=== PATIENT | male | born 1975 | race Caucasian/White ===

== ENCOUNTER 2016-06-30 13:16 | Emergency (ER) | payer OTHER ==
[2016-06-30 16:32] LABS: Basophils # (A) 0.1 k/uL (0-0.2); Basophils % (A) 1 %; CH 28.4; CHCM 33.9; Eosinophils # (A) 0.2 k/uL (0-0.7); Eosinophils % (A) 3 %; HCT 40.1 % (39.0-53.0); HDW 3.44; HGB 13.4 gm/dL (13.0-17.5); Luc # (Auto) 0.25; Luc % (Auto) 4; Lymphocytes # (A) 2.3 k/uL (1.0-4.8); Lymphocytes % (A) 32 %; MCH 28.1 pg (25.0-35.0); MCHC 33.4 g/dL (31.0-37.0); MCV 84.2 fL (80.0-100.0); Mean Platelet Volume 7.5; Monocytes # (A) 0.3 k/uL (0-1.0); Monocytes % (A) 4 %; Neutrophils % (A) 56 %; Poikilocytosis Slight; RBC 4.76 m/uL (4.30-5.90); RDW 13.5 % (11.5-15.5); WBC (Perox) 6.85
[2016-06-30 16:43] LABS: Anion Gap 11 mmol/L; Blood Urea Nitrogen 16 mg/dL (9-20); Carbon Dioxide 30 mmol/L (22-30); Chloride 99 mmol/L (98-107); Glucose 166 mg/dL (74-99); Non-African American GFR(MDRD) >60 (>60 ml/min/1.73 sqM); Potassium 4.4 mmol/L (3.5-5.1); Sodium 140 mmol/L (137-145)
--- NOTE | 2016-06-30 17:10 | XR ---
EXAMINATION TYPE: XR foot complete LT DATE OF EXAM: 06/30/2016 5:05 PM COMPARISON: NONE HISTORY: Swollen foot TECHNIQUE: 3 views FINDINGS: There is soft tissue swelling of the forefoot. There are plantar and Achilles calcaneal spu rs. Metatarsals are intact. IMPRESSION: Soft tissue swelling. No fracture. No evidence of a definite foreign body.
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
[2016-06-30 17:42] VITALS: BP 152/83; PULSE 96; RESP 16; TEMP 98.7
== END 2016-06-30 17:39 | disposition home or self-care (01) ==
LOC: EC 13:16
DX: E11.621 Type 2 diabetes mellitus with foot ulcer (principal); L97.529 Non-pressure chronic ulcer of other part of left foot with unspecified severity; Z86.14 Personal history of Methicillin resistant Staphylococcus aureus infection; Z88.0 Allergy status to penicillin; Z79.4 Long term (current) use of insulin; Z98.890 Other specified postprocedural states; Z79.84 Long term (current) use of oral hypoglycemic drugs
CPT/HCPCS: 36415; 80048; 85025; 87040; 99283

== ENCOUNTER → 2016-07-05 | Outpatient (CLI) | payer OTHER | END | disposition home or self-care (01) | LOC: LABWHC1 10:14 | PROVIDERS: ATTEND Surgery | DX: Z53.9 Procedure and treatment not carried out, unspecified reason (principal) ==

== ENCOUNTER 2016-10-16 22:15 | Inpatient (IN) | payer OTHER ==
[2016-10-16] MEDS ORDERED: SODIUM CHLORIDE 0.9% 1,000 ML IV STA (22:57)
[2016-10-16] MEDS ORDERED: LEVOFLOXACIN 750MG-D5W PMX 750 MG in DEXTROSE/WATER 1 150ML.BAG IVPB STA (22:59)
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
[2016-10-16 23:14] LABS: Basophils % (A) 0 %; CH 26.6; CHCM 32.8; Eosinophils # (A) 0.1 k/uL (0-0.7); Eosinophils % (A) 1 %; HCT 31.4 % (39.0-53.0); HDW 3.32; HGB 10.9 gm/dL (13.0-17.5); Hypochromasia Slight; Luc # (Auto) 0.24; Luc % (Auto) 2; Lymphocytes # (A) 1.1 k/uL (1.0-4.8); Lymphocytes % (A) 7 %; MCH 28.2 pg (25.0-35.0); MCHC 34.6 g/dL (31.0-37.0); MCV 81.3 fL (80.0-100.0); Mean Platelet Volume 7.3; Monocytes # (A) 0.7 k/uL (0-1.0); Monocytes % (A) 4 %; Neutrophils # (A) 13.7 k/uL (1.3-7.7); Neutrophils % (A) 87 %; RBC 3.86 m/uL (4.30-5.90); RDW 12.9 % (11.5-15.5); WBC 15.8 k/uL (3.8-10.6); WBC (Perox) 15.94
[2016-10-16 23:25] LABS: ALT 59 U/L (21-72); AST 36 U/L (17-59); Alkaline Phosphatase 64 U/L (38-126); Anion Gap 13 mmol/L; Blood Urea Nitrogen 15 mg/dL (9-20); Calcium 8.6 mg/dL (8.4-10.2); Carbon Dioxide 23 mmol/L (22-30); Chloride 99 mmol/L (98-107); Glucose 240 mg/dL (74-99); Non-African American GFR(MDRD) >60 (>60 ml/min/1.73 sqM); Potassium 4.4 mmol/L (3.5-5.1); Sodium 135 mmol/L (137-145); Total Bilirubin 0.7 mg/dL (0.2-1.3); Total Protein 6.6 g/dL (6.3-8.2)
[2016-10-16] MEDS ORDERED: SODIUM CHLORIDE 0.9% 1,000 ML IV ONE (23:31)
[2016-10-16] MEDS ORDERED: INSULIN REGULAR 100 UNIT/ML VIAL SQ STA (23:33)
[2016-10-16] MEDS ORDERED: ACETAMINOPHEN TAB 325 MG TAB PO STA (23:42)
--- NOTE | 2016-10-16 23:51 | XR ---
EXAM: XR Left Foot Complete, 3 or More Views CLINICAL HISTORY: Reason: Pain TECHNIQUE: Frontal, lateral and oblique views of the left foot. COMPARISON: 06/30/16. FINDINGS: Bones/joints: No definite acute fracture or dislocation. Soft tissues: Soft tissue swelling with lucencies suggestive of soft tissue gas in the region of the first and second MTP joints may be related to history of ulcer. Necrotizing infection is a differential consideration. No radiopaque foreign body. IMPRESSION: 1. Lucencies suggestive of soft tissue gas in the region of the first and second MTP joints may be related to history of ulcer. Necrotizing infection is a differential consideration. 2. No evidence of acute fracture.
[2016-10-17] MEDS ORDERED: IV VANCOMYCIN PER PHARMACY 1 EACH MISC MISCELLANE PRN (00:39)
[2016-10-17] MEDS ORDERED: MORPHINE SULFATE 4 MG/ML SYRINGE IV PRN (00:49)
[2016-10-17] MEDS ORDERED: NALOXONE 0.4 MG/ML 1 ML VIAL IV PRN (00:49)
[2016-10-17] MEDS ORDERED: ACETAMINOPHEN TAB 325 MG TAB PO PRN (00:49)
[2016-10-17] MEDS ORDERED: IBUPROFEN 400 MG TAB PO PRN ×2 (00:49→22:29)
[2016-10-17 00:53] LABS: Glucose,Whole Blood 242 mg/dL (75-99)
[2016-10-17] MEDS ORDERED: VANCOMYCIN 2,000 MG in SODIUM CHLORIDE 0.9% 500 ML IVPB STA (00:53)
[2016-10-17] MEDS ORDERED: INSULIN REGULAR 100 UNIT/ML VIAL SQ STA (00:54)
[2016-10-17] MEDS ORDERED: AZTREONAM 2 GM in SODIUM CHLORIDE 0.9% 50 ML IVPB SCH (01:00)
[2016-10-17] MEDS: AZTREONAM 2 GM in SODIUM CHLORIDE 0.9% 100 ML IVPB SCH ×3 (01:13→17:38)
[2016-10-17 01:58] VITALS: BMI 43.3
[2016-10-17] MEDS: HYDROcodone/APAP 5-325MG 1 EACH TAB PO PRN (02:01)
[2016-10-17] MEDS: SODIUM CHLORIDE 0.9% 1,000 ML IV SCH ×3 (06:46→14:35)
[2016-10-17 06:56] LABS: Glucose,Whole Blood 152 mg/dL (75-99)
[2016-10-17] MEDS: INSULIN LISPRO (humaLOG) 300 UNIT/3 ML VIAL SQ SCH ×6 (08:02→20:30)
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
[2016-10-17] MEDS: VANCOMYCIN 2,000 MG in SODIUM CHLORIDE 0.9% 500 ML IVPB SCH ×2 (10:22→18:35)
[2016-10-17] MEDS: metFORMIN 500 MG TAB PO SCH ×2 (10:25→20:30)
[2016-10-17 11:25] LABS: Glucose,Whole Blood 207 mg/dL (75-99)
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
[2016-10-17 17:11] LABS: Glucose,Whole Blood 231 mg/dL (75-99)
[2016-10-17 20:23] LABS: Glucose,Whole Blood 214 mg/dL (75-99)
[2016-10-17] MEDS: INSULIN GLARGINE 100 UNIT/ML 10 ML VIAL SQ SCH (20:30)
[2016-10-18] MEDS ORDERED: ACETAMINOPHEN IV (For NPO) 1,000 MG in EMPTY BAG 1 BAG IVPB PRN (00:21)
[2016-10-18] MEDS: AZTREONAM 2 GM in SODIUM CHLORIDE 0.9% 100 ML IVPB SCH ×3 (00:29→17:19)
[2016-10-18] MEDS ORDERED: ACETAMINOPHEN IV (For NPO) 1,000 MG in EMPTY BAG 1 BAG IVPB ONE (00:30)
[2016-10-18] MEDS: VANCOMYCIN 2,000 MG in SODIUM CHLORIDE 0.9% 500 ML IVPB SCH ×4 (01:36→19:32)
[2016-10-18] MEDS: SODIUM CHLORIDE 0.9% 1,000 ML IV SCH ×5 (03:42→19:33)
[2016-10-18] MEDS: ACETAMINOPHEN TAB 325 MG TAB PO PRN ×2 (05:57→13:52)
[2016-10-18 06:38] LABS: Basophils % (A) 0 %; CH 26.9; CHCM 33.4; Eosinophils # (A) 0.4 k/uL (0-0.7); Eosinophils % (A) 3 %; HCT 28.8 % (39.0-53.0); HDW 3.39; HGB 10.2 gm/dL (13.0-17.5); Luc # (Auto) 0.15; Luc % (Auto) 1; Lymphocytes # (A) 1.6 k/uL (1.0-4.8); Lymphocytes % (A) 10 %; MCH 28.6 pg (25.0-35.0); MCHC 35.3 g/dL (31.0-37.0); MCV 80.9 fL (80.0-100.0); Mean Platelet Volume 7.7; Monocytes # (A) 0.7 k/uL (0-1.0); Monocytes % (A) 4 %; Neutrophils # (A) 13.8 k/uL (1.3-7.7); Neutrophils % (A) 83 %; RBC 3.56 m/uL (4.30-5.90); RDW 13.3 % (11.5-15.5); WBC 16.7 k/uL (3.8-10.6); WBC (Perox) 16.34
[2016-10-18 07:14] LABS: Glucose,Whole Blood 177 mg/dL (75-99)
[2016-10-18 07:18] LABS: Anion Gap 10 mmol/L; Blood Urea Nitrogen 14 mg/dL (9-20); Calcium 7.6 mg/dL (8.4-10.2); Carbon Dioxide 21 mmol/L (22-30); Chloride 104 mmol/L (98-107); Glucose 177 mg/dL (74-99); Non-African American GFR(MDRD) >60 (>60 ml/min/1.73 sqM); Potassium 4.1 mmol/L (3.5-5.1); Sodium 135 mmol/L (137-145)
[2016-10-18] MEDS: INSULIN LISPRO (humaLOG) 300 UNIT/3 ML VIAL SQ SCH ×6 (08:59→20:30)
[2016-10-18] MEDS ORDERED: VANCOMYCIN TROUGH DUE 1 EACH MISC MISCELLANE ONE (09:00)
[2016-10-18] MEDS: metFORMIN 500 MG TAB PO SCH ×2 (09:00→20:29)
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
--- NOTE | 2016-10-18 11:21 | P.PN ---
Subjective 41-year-old male presented on the day of admission to be evaluated for increased pain in the left foot stated been ongoing for the last month. Patient has a history of multiple diabetic wounds and debridements. Patient stated several months he had been followed in the [facility] with Dr. Morales for diabetic ulcer on the plantar side of the left foot. Dr. Morales performed debridements necessary in the past. Patient had been in a cast keep the pressure off the wound. In in September 2016 Dr. Morales felt that the wound had significantly healed and he removed the total contact cast. Patient states that the cast have been removed he noted increase in swelling to the left foot was increased redness. Patient states he does not normally have pain due to his diabetes. Patient was seen in the emergency room was noted to be febrile temp was 102.5 patient was tachycardic with leukocytosis meeting sirs criteria for sepsis suspect due to diabetic ulcer on the plantar side of the left foot patient has been admitted with infectious disease consultation requested patient on IV antibiotics per infectious disease Dr. varner . Patient stated he did note over the last several days to have discoloration purple in color to the left second toe Objective - Vital Signs Vital signs: Vital Signs Temp 98.4 F 10/18/16 07:00 Pulse 99 10/18/16 07:00 Resp 18 10/18/16 07:00 BP 136/69 10/18/16 07:00 Pulse Ox 90 L 10/18/16 07:00 Intake & Output 10/17/16 10/18/16 10/18/16 18:59 06:59 18:59 Intake Total 2280 2200 Output Total 400 Balance 2280 1800 Weight 141 kg 141 kg Intake: Intake, IV Titration 1600 1800 Amount Aztreonam 2 gm In Sodium 100 100 Chloride 0.9% 100 ml @ 100 mls/hr IVPB Q8H [facility]OS[facility] Rx#:[id number] Sodium Chloride 0.9% 1, 1000 1200 000 ml @ 150 mls/hr IV . Q6H40M [facility]OS[facility] Rx#:[id number] Vancomycin 2,000 mg In 500 500 Sodium Chloride 0.9% 500 ml @ 167 mls/hr IVPB Q8H [facility]OS[facility] Rx#:[id number] Oral 680 400 Output: Urine 400 Other: Voiding Method Toilet Toilet Toilet Urinal Urinal Urinal # Voids 4 1 - Exam Physical exam 41-year-old male sitting up on the edge of the bed talkative requesting a diet stating he's hungry Lungs essentially clear adequate air movement on room air Heart S1-S2 audible and regular Abdomen soft nontender reports of nausea vomiting Extremities upper extremities unremarkable the lower extremity left second toe purple left foot swollen warm to touch right lower extremity chronic venous stasis noted - Labs CBC & Chem 7: 10/18/16 06:03 10/18/16 06:03 Labs: Abnormal Lab Results - Last 24 Hours (Table) 10/16/16 10/17/16 10/17/16 Range/Units 22:30 11:23 17:10 WBC (3.8-10.6) k/uL RBC (4.30-5.90) m/uL Hgb (13.0-17.5) gm/dL Hct (39.0-53.0) % Neutrophils # (1.3-7.7) k/uL Sodium (137-145) mmol/L Carbon Dioxide (22-30) mmol/L Creatinine (0.66-1.25) mg/dL Glucose (74-99) mg/dL POC Glucose (mg/dL) 207 H 231 H (75-99) mg/dL Hemoglobin A1c 8.0 H (4.2-6.1) % Calcium (8.4-10.2) mg/dL 10/17/16 10/18/16 10/18/16 Range/Units 20:18 06:03 06:03 WBC 16.7 H (3.8-10.6) k/uL RBC 3.56 L (4.30-5.90) m/uL Hgb 10.2 L (13.0-17.5) gm/dL Hct 28.8 L (39.0-53.0) % Neutrophils # 13.8 H (1.3-7.7) k/uL Sodium 135 L (137-145) mmol/L Carbon Dioxide 21 L (22-30) mmol/L Creatinine 0.58 L (0.66-1.25) mg/dL Glucose 177 H (74-99) mg/dL POC Glucose (mg/dL) 214 H (75-99) mg/dL Hemoglobin A1c (4.2-6.1) % Calcium 7.6 L (8.4-10.2) mg/dL 10/18/16 Range/Units 07:13 WBC (3.8-10.6) k/uL RBC (4.30-5.90) m/uL Hgb (13.0-17.5) gm/dL Hct (39.0-53.0) % Neutrophils # (1.3-7.7) k/uL Sodium (137-145) mmol/L Carbon Dioxide (22-30) mmol/L Creatinine (0.66-1.25) mg/dL Glucose (74-99) mg/dL POC Glucose (mg/dL) 177 H (75-99) mg/dL Hemoglobin A1c (4.2-6.1) % Calcium (8.4-10.2) mg/dL Microbiology - Last 24 Hours (Table) 10/16/16 22:30 Gram Stain - Preliminary Foot - Left Wound Culture - Preliminary Beta Hemolytic Strep Group C Gram Neg Bacilli 10/16/16 23:00 Blood Culture - Preliminary Blood No Growth after 24 hours 10/16/16 22:30 Blood Culture - Preliminary Blood No Growth after 24 hours 10/17/16 16:00 Gram Stain - Preliminary Foot - Left Wound Culture - Preliminary 10/17/16 16:00 Anaerobic Culture - Preliminary Foot - Left 10/17/16 09:45 Anaerobic Culture - Preliminary Foot - Left Assessment and Plan Plan: Impression Present on admission increased swelling left foot suspect due to diabetic ulcer of the left foot associated with diabetes mellitus due to underlying condition Diabetes insulin requiring uncontrolled hemoglobin A1c 8 Morbid obesity BMI 43 Present on admission febrile tachycardic leukocytosis sepsis suspect due to diabetic ulcer left foot 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 Morales known to service possible debridement Continue medications by infectious disease Possible PICC line placement IV antibiotics per infectious disease on iv azactreonam 2 g every 8 hours with Flagyl 500 mg every 8 hours Monitor blood sugars address as indicated DVT and GI prophylaxis The above impression and plan of care have been discussed and directed by signing physician. Tamica Mckeon nurse practitioner acting as scribe for signing physician.
[2016-10-18 11:36] LABS: Glucose,Whole Blood 215 mg/dL (75-99)
--- NOTE | 2016-10-18 14:04 | P.PN ---
Progress Note - Text Since the patient is known to Dr. Morales from the wound clinic, we will sign off. Notify us if the patient is condition changes or you would like general surgery to reevaluate him.
[2016-10-18] MEDS: HEPARIN SODIUM,PORCINE 5,000 UNIT/ML 1 ML VIAL SQ SCH (15:15)
[2016-10-18 17:11] LABS: Glucose,Whole Blood 208 mg/dL (75-99)
[2016-10-18 20:06] LABS: Glucose,Whole Blood 229 mg/dL (75-99)
[2016-10-18] MEDS: INSULIN GLARGINE 100 UNIT/ML 10 ML VIAL SQ SCH ×2 (20:29→23:27)
[2016-10-18] MEDS: FAMOTIDINE 20 MG TAB PO SCH (20:29)
--- NOTE | 2016-10-18 22:01 | P.PN ---
Subjective Principal diagnosis: Left diabetic foot infection Patient is a 41-year-old male admitted hospital with significant left diabetic foot infection with infected blister on the plantar aspect of his left foot, as of this morning the patient fever pattern has improved with low-grade fever 100.1 this morning the patient denies significant chest pain shortness of breath or cough no abdominal pain and no diarrhea denies any worsening pain in his left foot waiting for the I&D later this morning Objective - Vital Signs Vital signs: Vital Signs Temp 98.4 F 10/18/16 07:00 Pulse 99 10/18/16 07:00 Resp 18 10/18/16 07:00 BP 136/69 10/18/16 07:00 Pulse Ox 90 L 10/18/16 07:00 Intake & Output 10/17/16 10/18/16 10/18/16 18:59 06:59 18:59 Intake Total 2280 2200 Output Total 400 Balance 2280 1800 Weight 141 kg 141 kg Intake: Intake, IV Titration 1600 1800 Amount Aztreonam 2 gm In Sodium 100 100 Chloride 0.9% 100 ml @ 100 mls/hr IVPB Q8H [facility] Rx#:[id number] Sodium Chloride 0.9% 1, 1000 1200 000 ml @ 150 mls/hr IV . Q6H40M [facility] Rx#:[id number] Vancomycin 2,000 mg In 500 500 Sodium Chloride 0.9% 500 ml @ 167 mls/hr IVPB Q8H [facility] Rx#:[id number] Oral 680 400 Output: Urine 400 Other: Voiding Method Toilet Toilet Toilet Urinal Urinal Urinal # Voids 4 1 - Exam Middle-aged male up in the bed in no distress Respiratory system: Unlabored breathing and is clear to auscultation Heart : S1,S2 RRR Abdomen: Soft no tenderness extremities: Left foot is currently dressed up there is no specific and drainage on the dressing - Labs CBC & Chem 7: 10/18/16 06:03 10/18/16 06:03 Labs: Abnormal Lab Results - Last 24 Hours (Table) 10/16/16 10/17/16 10/17/16 Range/Units 22:30 11:23 17:10 WBC (3.8-10.6) k/uL RBC (4.30-5.90) m/uL Hgb (13.0-17.5) gm/dL Hct (39.0-53.0) % Neutrophils # (1.3-7.7) k/uL Sodium (137-145) mmol/L Carbon Dioxide (22-30) mmol/L Creatinine (0.66-1.25) mg/dL Glucose (74-99) mg/dL POC Glucose (mg/dL) 207 H 231 H (75-99) mg/dL Hemoglobin A1c 8.0 H (4.2-6.1) % Calcium (8.4-10.2) mg/dL 10/17/16 10/18/16 10/18/16 Range/Units 20:18 06:03 06:03 WBC 16.7 H (3.8-10.6) k/uL RBC 3.56 L (4.30-5.90) m/uL Hgb 10.2 L (13.0-17.5) gm/dL Hct 28.8 L (39.0-53.0) % Neutrophils # 13.8 H (1.3-7.7) k/uL Sodium 135 L (137-145) mmol/L Carbon Dioxide 21 L (22-30) mmol/L Creatinine 0.58 L (0.66-1.25) mg/dL Glucose 177 H (74-99) mg/dL POC Glucose (mg/dL) 214 H (75-99) mg/dL Hemoglobin A1c (4.2-6.1) % Calcium 7.6 L (8.4-10.2) mg/dL 10/18/16 Range/Units 07:13 WBC (3.8-10.6) k/uL RBC (4.30-5.90) m/uL Hgb (13.0-17.5) gm/dL Hct (39.0-53.0) % Neutrophils # (1.3-7.7) k/uL Sodium (137-145) mmol/L Carbon Dioxide (22-30) mmol/L Creatinine (0.66-1.25) mg/dL Glucose (74-99) mg/dL POC Glucose (mg/dL) 177 H (75-99) mg/dL Hemoglobin A1c (4.2-6.1) % Calcium (8.4-10.2) mg/dL Microbiology - Last 24 Hours (Table) 10/16/16 22:30 Gram Stain - Preliminary Foot - Left Wound Culture - Preliminary Beta Hemolytic Strep Group C Gram Neg Bacilli 10/16/16 23:00 Blood Culture - Preliminary Blood No Growth after 24 hours 10/16/16 22:30 Blood Culture - Preliminary Blood No Growth after 24 hours 10/17/16 16:00 Gram Stain - Preliminary Foot - Left Wound Culture - Preliminary 10/17/16 16:00 Anaerobic Culture - Preliminary Foot - Left 10/17/16 09:45 Anaerobic Culture - Preliminary Foot - Left Assessment and Plan (1) Diabetic ulcer of left foot associated with diabetes mellitus due to underlying condition Status: Acute (2) Sepsis Status: Acute Plan: 1- patient with sepsis admitted to hospital with a fever of 103 did have elevated white count source is left diabetic foot infection with significant foul-smelling likely polymicrobial infection 2-pt is to continue with vancomycin pharmacy to dose target trough of 15 along with Azactam and Flagyl 3-await surgical debridement of the wound and deep cultures 4- patient will likely need PICC line for outpatient IV antibiotic therapy in view of extensive infection Time with Patient: Less than 30
[2016-10-18] MEDS: metroNIDAZOLE 500 MG TAB PO SCH (23:33)
[2016-10-19] MEDS: HEPARIN SODIUM,PORCINE 5,000 UNIT/ML 1 ML VIAL SQ SCH ×4 (00:30→23:10)
[2016-10-19] MEDS: AZTREONAM 2 GM in SODIUM CHLORIDE 0.9% 100 ML IVPB SCH ×2 (00:30→07:38)
[2016-10-19] MEDS: VANCOMYCIN 2,000 MG in SODIUM CHLORIDE 0.9% 500 ML IVPB SCH ×2 (01:48→11:33)
[2016-10-19] MEDS: SODIUM CHLORIDE 0.9% 1,000 ML IV SCH ×3 (03:59→23:10)
[2016-10-19 07:12] LABS: Glucose,Whole Blood 164 mg/dL (75-99)
[2016-10-19 07:25] LABS: ALT 46 U/L (21-72); AST 19 U/L (17-59); Alkaline Phosphatase 73 U/L (38-126); Anion Gap 10 mmol/L; Blood Urea Nitrogen 8 mg/dL (9-20); Calcium 7.4 mg/dL (8.4-10.2); Carbon Dioxide 22 mmol/L (22-30); Chloride 102 mmol/L (98-107); Glucose 168 mg/dL (74-99); Non-African American GFR(MDRD) >60 (>60 ml/min/1.73 sqM); Potassium 3.7 mmol/L (3.5-5.1); Sodium 134 mmol/L (137-145); Total Bilirubin 0.7 mg/dL (0.2-1.3); Total Protein 5.9 g/dL (6.3-8.2)
[2016-10-19] MEDS: INSULIN LISPRO (humaLOG) 300 UNIT/3 ML VIAL SQ SCH ×6 (07:37→21:38)
[2016-10-19] MEDS: metFORMIN 500 MG TAB PO SCH ×2 (07:38→21:37)
[2016-10-19] MEDS: metroNIDAZOLE 500 MG TAB PO SCH (07:40)
[2016-10-19] MEDS: cefTRIAXone 2,000 MG in SODIUM CHLORIDE 0.9% 100 ML IVPB SCH (09:48)
[2016-10-19] MEDS: CLINDAMYCIN 900 MG in DEXTROSE 5% IN WATER 50 ML IVPB SCH ×6 (10:47→23:09)
--- NOTE | 2016-10-19 10:53 | P.PN ---
Subjective 41-year-old male sitting up on the edge of the bed being seen and examined this morning. Patient is scheduled for an incision and drainage left foot diabetic ulcer on the plantar side by Dr. Morales this morning patient denies shortness of breath dizziness lightheadedness or chest pain dressing to the left foot serous drainage noted. Nonpitting edema bilateral lower extremities persist with chronic venous stasis changes patient denies any pain when questioning Objective - Vital Signs Vital signs: Vital Signs Temp 99.4 F 10/19/16 08:21 Pulse 113 H 10/19/16 08:46 Resp 20 10/19/16 08:46 BP 117/54 10/19/16 08:21 Pulse Ox 91 L 10/19/16 08:21 Intake & Output 10/18/16 10/19/16 10/19/16 18:59 06:59 18:59 Intake Total 1000 1608 Output Total 400 Balance 1000 1208 Weight 141 kg 141 kg 141 kg Intake: Intake, IV Titration 1000 1298 Amount Aztreonam 2 gm In Sodium 100 Chloride 0.9% 100 ml @ 100 mls/hr IVPB Q8H [facility] Rx#:[id number] Sodium Chloride 0.9% 1, 400 1298 000 ml @ 100 mls/hr IV . Q10H [facility] Rx#:[id number] Vancomycin 2,000 mg In 500 Sodium Chloride 0.9% 500 ml @ 167 mls/hr IVPB Q8H [facility] Rx#:[id number] Oral 310 Output: Urine 400 Other: Voiding Method Toilet Toilet Urinal Urinal # Voids 1 2 1 # Bowel Movements 2 - Exam Physical exam 41-year-old male sitting up on the edge of the bed NPO this morning for a planned procedure Lungs essentially clear adequate air movement on room air no shortness of breath noted Heart S1-S2 audible and regular denying chest pain Abdomen obese soft nontender reports of nausea vomiting reports of difficulty in urinating no frequent stooling Extremities upper extremities unremarkable the lower extremity left second toe purple left foot swollen warm to touch right lower extremity chronic venous stasis noted - Labs CBC & Chem 7: 10/18/16 06:03 10/19/16 06:35 Labs: Abnormal Lab Results - Last 24 Hours (Table) 10/18/16 10/18/16 10/18/16 Range/Units 11:29 17:09 20:04 Sodium (137-145) mmol/L BUN (9-20) mg/dL Creatinine (0.66-1.25) mg/dL Glucose (74-99) mg/dL POC Glucose (mg/dL) 215 H 208 H 229 H (75-99) mg/dL Calcium (8.4-10.2) mg/dL Total Protein (6.3-8.2) g/dL Albumin (3.5-5.0) g/dL 10/19/16 10/19/16 Range/Units 06:35 07:08 Sodium 134 L (137-145) mmol/L BUN 8 L (9-20) mg/dL Creatinine 0.57 L (0.66-1.25) mg/dL Glucose 168 H (74-99) mg/dL POC Glucose (mg/dL) 164 H (75-99) mg/dL Calcium 7.4 L (8.4-10.2) mg/dL Total Protein 5.9 L (6.3-8.2) g/dL Albumin 2.5 L (3.5-5.0) g/dL Microbiology - Last 24 Hours (Table) 10/16/16 23:00 Blood Culture - Final Blood 10/16/16 22:30 Blood Culture - Preliminary Blood No Growth after 48 hours 10/17/16 23:00 Blood Culture Gram Stain - Preliminary Blood Blood Culture - Preliminary Beta Hemolytic Strep Group C 10/17/16 16:00 Gram Stain - Preliminary Foot - Left Wound Culture - Preliminary Gram Neg Bacilli Beta Hemolytic Strep Group C 10/16/16 22:30 Gram Stain - Preliminary Foot - Left Wound Culture - Preliminary Beta Hemolytic Strep Group C Gram Neg Bacilli Assessment and Plan Plan: Impression Present on admission increased swelling left foot suspect due to diabetic ulcer of the left foot associated with diabetes mellitus due to underlying condition Diabetes insulin requiring uncontrolled hemoglobin A1c 8 Morbid obesity BMI 43 Present on admission febrile tachycardic leukocytosis sepsis suspect due to diabetic ulcer left foot plantar side Peripheral sensory neuropathy due to type 2 diabetes mellitus Leukocytosis persist Plan Dr. Morales to proceed with possible debridement left ulcer plantar side left foot Continue medications by infectious disease Possible PICC line placement IV antibiotics per infectious disease on iv azactreonam 2 g every 8 hours with Flagyl 500 mg every 8 hours Monitor blood sugars address as indicated DVT and GI prophylaxis The above impression and plan of care have been discussed and directed by signing physician. Tamica Mckeon nurse practitioner acting as scribe for signing physician.
[2016-10-19 11:35] LABS: Glucose,Whole Blood 171 mg/dL (75-99)
[2016-10-19] MEDS ORDERED: IV FLUID CONTINUATION 1,000 ML IV ONE (13:35)
[2016-10-19 13:41] LABS: Glucose,Whole Blood 156 mg/dL (75-99)
[2016-10-19] MEDS ORDERED: MIDAZOLAM 2 MG/2 ML VIAL ONE (15:00)
[2016-10-19] MEDS ORDERED: LIDOCAINE 1% INJ 10MG/ML (20 ML MDV) ONE (15:00)
[2016-10-19] MEDS ORDERED: KETAMINE 10 MG/ML 20 ML VIAL ONE (15:00)
[2016-10-19] MEDS ORDERED: PROPOFOL 10 MG/ML 20 ML VIAL IV ONE (15:00)
[2016-10-19] MEDS ORDERED: fentaNYL (PF) 50 MCG/ML 2 ML AMP ONE (15:00)
[2016-10-19 15:56] LABS: Glucose,Whole Blood 150 mg/dL (75-99)
[2016-10-19 16:37] LABS: Glucose,Whole Blood 140 mg/dL (75-99)
[2016-10-19] MEDS ORDERED: VANCOMYCIN 2,250 MG in SODIUM CHLORIDE 0.9% 500 ML IVPB SCH (18:00)
[2016-10-19 20:20] LABS: Glucose,Whole Blood 236 mg/dL (75-99)
[2016-10-19] MEDS: FAMOTIDINE 20 MG TAB PO SCH (21:37)
[2016-10-19] MEDS: INSULIN GLARGINE 100 UNIT/ML 10 ML VIAL SQ SCH (21:37)
[2016-10-20 07:05] LABS: Glucose,Whole Blood 158 mg/dL (75-99)
[2016-10-20] MEDS: CLINDAMYCIN 900 MG in DEXTROSE 5% IN WATER 50 ML IVPB SCH ×4 (07:26→18:00)
[2016-10-20] MEDS: INSULIN LISPRO (humaLOG) 300 UNIT/3 ML VIAL SQ SCH ×6 (07:26→20:42)
[2016-10-20] MEDS: HEPARIN SODIUM,PORCINE 5,000 UNIT/ML 1 ML VIAL SQ SCH ×2 (07:28→17:22)
[2016-10-20 07:52] LABS: ALT 39 U/L (21-72); AST 17 U/L (17-59); Alkaline Phosphatase 68 U/L (38-126); Anion Gap 9 mmol/L; Blood Urea Nitrogen 9 mg/dL (9-20); Calcium 7.5 mg/dL (8.4-10.2); Carbon Dioxide 23 mmol/L (22-30); Chloride 103 mmol/L (98-107); Glucose 159 mg/dL (74-99); Non-African American GFR(MDRD) >60 (>60 ml/min/1.73 sqM); Potassium 3.9 mmol/L (3.5-5.1); Sodium 135 mmol/L (137-145); Total Bilirubin 0.6 mg/dL (0.2-1.3); Total Protein 6.1 g/dL (6.3-8.2)
[2016-10-20] MEDS: cefTRIAXone 2,000 MG in SODIUM CHLORIDE 0.9% 100 ML IVPB SCH (09:29)
[2016-10-20] MEDS: SODIUM CHLORIDE 0.9% 1,000 ML IV SCH ×2 (09:30→20:42)
[2016-10-20] MEDS: metFORMIN 500 MG TAB PO SCH ×2 (09:30→20:41)
--- NOTE | 2016-10-20 10:34 | P.PN ---
Subjective We are covering for Dr. VERDE, today. Interval history, this is a 41-year- old male sitting up in bedside chair, being seen and examined this morning. Patient had a incision and drainage left foot diabetic ulcer on the plantar side by Dr. Morales 10/19/2016. Patient is well-known to Dr. Morales and has been seen in the past in the wound care center for osteomyelitis and diabetic foot ulcer. Patient denies shortness of breath dizziness lightheadedness or chest pain dressing to the left foot serous drainage noted. Nonpitting edema bilateral lower extremities persist with chronic venous stasis changes. Objective - Vital Signs Vital signs: Vital Signs Temp 98.5 F 10/20/16 07:39 Pulse 95 10/20/16 08:00 Resp 20 10/20/16 08:00 BP 144/92 10/20/16 07:39 Pulse Ox 93 L 10/20/16 07:39 Intake & Output 10/19/16 10/20/16 10/20/16 18:59 06:59 18:59 Intake Total 1350 1455 Output Total 40 750 Balance 1310 705 Weight 141 kg Intake: IV 200 Intake, IV Titration 1100 1275 Amount Clindamycin 900 mg In 50 Dextrose 5% in Water 50 ml @ 100 mls/hr IVPB Q8HR [facility] Rx#:[id number] IV Fluid Continuation 1, 450 1275 000 ml As IV .STK-MED ONE Rx#:[id number] Vancomycin 2,250 mg In 500 Sodium Chloride 0.9% 500 ml @ 167 mls/hr IVPB Q8H [facility] Rx#:[id number] cefTRIAXone 2,000 mg In 100 Sodium Chloride 0.9% 100 ml @ 100 mls/hr IVPB Q24HR [facility] Rx#:[id number] Oral 50 180 Output: Urine 750 Estimated Blood Loss 40 Other: Voiding Method Toilet Toilet Toilet Urinal Urinal Urinal # Voids 1 2 - Exam GENERAL EXAM: Alert, comfortable in no apparent distress. HEAD: Normocephalic. EYES: Normal reaction of pupils, equal size. NOSE: Clear with pink turbinates. THROAT: No erythema or exudates. NECK: No masses, no JVD. CHEST: No chest wall deformity. LUNGS: Equal air entry with no crackles, wheeze, rhonchi or dullness. CVS: S1 and S2 normal with no audible mumurs, regular rhythm. ABDOMEN: Obese No hepatosplenomegaly, normal bowel sounds, no guarding or rigidity. EXTREMITIES: Upper extremities unremarkable, lower extremity left second toe purple left foot swollen, warm to touch. Foot is wrapped with a white gauze bandage. Right lower extremity chronic venous stasis noted. No edema noted, pedal pulses palpable. CENTRAL NERVOUS SYSTEM: No focal deficits, tone is normal in all 4 extremities. - Labs CBC & Chem 7: 10/18/16 06:03 10/20/16 06:58 Labs: Abnormal Lab Results - Last 24 Hours (Table) 10/19/16 10/19/16 10/19/16 Range/Units 11:33 13:39 15:53 Sodium (137-145) mmol/L Creatinine (0.66-1.25) mg/dL Glucose (74-99) mg/dL POC Glucose (mg/dL) 171 H 156 H 150 H (75-99) mg/dL Calcium (8.4-10.2) mg/dL Total Protein (6.3-8.2) g/dL Albumin (3.5-5.0) g/dL 10/19/16 10/19/16 10/20/16 Range/Units 16:33 20:17 06:58 Sodium 135 L (137-145) mmol/L Creatinine 0.57 L (0.66-1.25) mg/dL Glucose 159 H (74-99) mg/dL POC Glucose (mg/dL) 140 H 236 H (75-99) mg/dL Calcium 7.5 L (8.4-10.2) mg/dL Total Protein 6.1 L (6.3-8.2) g/dL Albumin 2.5 L (3.5-5.0) g/dL 10/20/16 Range/Units 07:00 Sodium (137-145) mmol/L Creatinine (0.66-1.25) mg/dL Glucose (74-99) mg/dL POC Glucose (mg/dL) 158 H (75-99) mg/dL Calcium (8.4-10.2) mg/dL Total Protein (6.3-8.2) g/dL Albumin (3.5-5.0) g/dL Microbiology - Last 24 Hours (Table) 10/16/16 22:30 Blood Culture - Preliminary Blood No Growth after 72 hours 10/17/16 23:00 Blood Culture Gram Stain - Final Blood Blood Culture - Final Beta Hemolytic Strep Group C 10/17/16 16:00 Gram Stain - Final Foot - Left Wound Culture - Final Enterobacter cloacae Beta Hemolytic Strep Group C 10/18/16 17:27 Blood Culture - Preliminary Blood No Growth after 24 hours 10/18/16 17:03 Blood Culture - Preliminary Blood No Growth after 24 hours 10/16/16 22:30 Gram Stain - Preliminary Foot - Left Wound Culture - Preliminary Beta Hemolytic Strep Group C Enterobacter hormaechei Presumptive MRSA 10/16/16 23:00 Blood Culture - Final Blood Assessment and Plan Plan: Assessment Leukocytosis sepsis suspect related to diabetic ulcer Peripheral sensory neuropathy due to type 2 diabetes mellitus Left foot diabetic ulcer Diabetes mellitus type 2 uncontrolled Morbid obesity History of osteomyelitis in the past. Plan Medications have been reviewed and will be continued as ordered. Continue with IV antibiotics. Patient did undergo a debridement with Dr. Morales on 2016. Patient is also being seen by infectious disease. Patient will have PICC line insertion today. Patient will also undergo a bone scan of his left foot today. Patient is nonweightbearing to his left foot. Patient will also have a wound VAC applied to left foot today. Continue with pulmonary hygiene, coughing and deep breathing exercises, and supportive care. GI and DVT prophylaxis. We will continue to monitor labs/results and adjust treatment as necessary. Further recommendations pending. I performed an examination of the patient and discussed their management with the nurse practitioner. I have reviewed the nurse practitioner's note and agree with the documented findings and plan of care.
[2016-10-20 11:38] LABS: Glucose,Whole Blood 258 mg/dL (75-99)
[2016-10-20] MEDS ORDERED: LIDOCAINE 2% INJ 20 MG/ML SQ ONE (12:25)
--- NOTE | 2016-10-20 12:47 | IR ---
PICC LINE PLACEMENT: HISTORY: Infection requiring long-term antibiotic therapy PROCEDURE: Ultrasound and fluoroscopic guidance of PICC line placement. COMPLICATIONS: None ANESTHESIA: 1. 1% Lidocaine locally. FINDINGS/TECHNIQUE: The procedure was explained to the patient. The risks, complications, benefits and alternatives were discussed and any questions were answered. Informed consent was obtained. The patient was placed supine on the fluoroscopic table and prepped and draped in the usual sterile fash ion. Utilizing a 21 gauge needle and sonographic and fluoroscopic guidance, access in the left ceph alic vein was achieved and there is placement of a 0.018 guidewire. The vein is patent. A 4-F sheat h was placed over the guidewire. The guidewire and dilator were removed and a 4-F. PICC line was letty bess through the sheath with the tip at the level of the SVC. The sheath was removed, the catheter wa s flushed and sutured into position. The patient was stable throughout the procedure and remained st able upon discharge from the Department of Radiology. The vein puncture was patent under ultrasound. A delvalle scale image was obtained to document patency of the vein punctured. All elements of the maximal barrier technique were utilized. FLUOROSCOPY TIME: 0.1 minute IMPRESSION: Successful PICC line placement under ultrasound and fluoroscopic guidance.
--- NOTE | 2016-10-20 13:33 | P.PN ---
Subjective Principal diagnosis: Diabetic foot ulcer to left foot POD #1 surgical debridement of left foot ulcer. Patient currently sitting up in the chair in no acute distress. Denies pain. Dressing removed from left foot. Objective - Vital Signs Vital signs: Vital Signs Temp 98.5 F 10/20/16 09:22 Pulse 94 10/20/16 09:22 Resp 18 10/20/16 09:22 BP 118/74 10/20/16 09:22 Pulse Ox 94 L 10/20/16 09:22 Intake & Output 10/19/16 10/20/16 10/20/16 18:59 06:59 18:59 Intake Total 1350 1455 Output Total 40 750 Balance 1310 705 Weight 141 kg Intake: IV 200 Intake, IV Titration 1100 1275 Amount Clindamycin 900 mg In 50 Dextrose 5% in Water 50 ml @ 100 mls/hr IVPB Q8HR [facility] Rx#:[id number] IV Fluid Continuation 1, 450 1275 000 ml As IV .STK-MED ONE Rx#:[id number] Vancomycin 2,250 mg In 500 Sodium Chloride 0.9% 500 ml @ 167 mls/hr IVPB Q8H [facility] Rx#:[id number] cefTRIAXone 2,000 mg In 100 Sodium Chloride 0.9% 100 ml @ 100 mls/hr IVPB Q24HR [facility] Rx#:[id number] Oral 50 180 Output: Urine 750 Estimated Blood Loss 40 Other: Voiding Method Toilet Toilet Toilet Urinal Urinal Urinal # Voids 1 2 - Constitutional General appearance: Present: cooperative, no acute distress - Respiratory Details: Lungs sounds diminished bilaterally. Respirations even, nonlabored. Currently remains on room air with oxygen saturation 93%. - Cardiovascular Details: S1, S2 present. Regular rate and rhythm. - Gastrointestinal Gastrointestinal Comment(s): Abdomen soft, nondistended, nontender, morbidly obese. Active bowel sounds 4 quadrants. Tolerating diet. - Genitourinary Genitourinary Comment(s): Continues to void clear, yellow urine. - Integumentary Integumentary Comment(s): Left lower extremity dressing removed. Wound bed looks clean. Drainage present on removed dressing which appears old, no new drainage. - Musculoskeletal Musculoskeletal: Present: strength equal bilaterally - Psychiatric Psychiatric: Present: A&O x's 3, appropriate affect - Allied health notes Allied health notes reviewed: case management - Labs CBC & Chem 7: 10/18/16 06:03 10/20/16 06:58 Labs: Abnormal Lab Results - Last 24 Hours (Table) 10/19/16 10/19/16 10/19/16 Range/Units 13:39 15:53 16:33 Sodium (137-145) mmol/L Creatinine (0.66-1.25) mg/dL Glucose (74-99) mg/dL POC Glucose (mg/dL) 156 H 150 H 140 H (75-99) mg/dL Calcium (8.4-10.2) mg/dL Total Protein (6.3-8.2) g/dL Albumin (3.5-5.0) g/dL 10/19/16 10/20/16 10/20/16 Range/Units 20:17 06:58 07:00 Sodium 135 L (137-145) mmol/L Creatinine 0.57 L (0.66-1.25) mg/dL Glucose 159 H (74-99) mg/dL POC Glucose (mg/dL) 236 H 158 H (75-99) mg/dL Calcium 7.5 L (8.4-10.2) mg/dL Total Protein 6.1 L (6.3-8.2) g/dL Albumin 2.5 L (3.5-5.0) g/dL 10/20/16 Range/Units 11:35 Sodium (137-145) mmol/L Creatinine (0.66-1.25) mg/dL Glucose (74-99) mg/dL POC Glucose (mg/dL) 258 H (75-99) mg/dL Calcium (8.4-10.2) mg/dL Total Protein (6.3-8.2) g/dL Albumin (3.5-5.0) g/dL Microbiology - Last 24 Hours (Table) 10/16/16 22:30 Gram Stain - Final Foot - Left Wound Culture - Final Beta Hemolytic Strep Group C Enterobacter hormaechei Methicillin resist S. aureus Providencia stuartii 10/16/16 22:30 Blood Culture - Preliminary Blood No Growth after 72 hours 10/17/16 23:00 Blood Culture Gram Stain - Final Blood Blood Culture - Final Beta Hemolytic Strep Group C 10/17/16 16:00 Gram Stain - Final Foot - Left Wound Culture - Final Enterobacter cloacae Beta Hemolytic Strep Group C 10/18/16 17:27 Blood Culture - Preliminary Blood No Growth after 24 hours 10/18/16 17:03 Blood Culture - Preliminary Blood No Growth after 24 hours Assessment and Plan (1) Type 2 diabetes mellitus Status: Acute (2) Morbid obesity with BMI of 40.0-44.9, adult Status: Acute (3) Diabetic ulcer of left foot associated with diabetes mellitus due to underlying condition Status: Acute (4) 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 Will place wound VAC to left foot diabetic wound. 2. Will obtain bone scan to determine if future treatment with hyperbaric therapy is appropriate. 3. Antibiotics per infectious disease recommendations. 4. Reinforced with patient that he is to refrain from putting any weight on his left leg. Should he choose to disregard this warning he does run the risk of needing amputation. This was also reinforced strenuously with his via phone. Physical therapy ordered to assist patient with mobility. 5. Medical management per primary care service. 6. Upon discharge patient is to follow with Dr. Morales in the wound care center. Time with Patient: Greater than 30
[2016-10-20] MEDS ORDERED: IV VANCOMYCIN PER PHARMACY 1 EACH MISC MISCELLANE PRN (16:43)
[2016-10-20 16:54] LABS: Glucose,Whole Blood 153 mg/dL (75-99)
[2016-10-20] MEDS: VANCOMYCIN 2,250 MG in SODIUM CHLORIDE 0.9% 500 ML IVPB SCH (18:33)
--- NOTE | 2016-10-20 18:55 | NM ---
EXAMINATION TYPE: NM bone 3 phase DATE OF EXAM: 10/20/2016 COMPARISON: NONE HISTORY: Triple phase bone scintigraphy was performed following the injection of25.5 mCi Tc 99m MDP. Immediat e images and 7 hours post injection images acquired. FINDINGS: The flow study shows hyperemia of the left foot compared to the right. The delayed images show focal intense increased uptake in the right fifth metatarsal. I see no significant abnormal uptake on the d elayed images in the left foot. IMPRESSION: There is hyperemia of the left foot there is consistent with cellulitis. No evidence of delayed incre ased uptake to suggest osteomyelitis or fracture. There is increased uptake in the fifth metatarsal of the right foot that could relate to a fracture. I have no recent exams to compare.
[2016-10-20 20:14] LABS: Glucose,Whole Blood 183 mg/dL (75-99)
[2016-10-20] MEDS: FAMOTIDINE 20 MG TAB PO SCH (20:41)
[2016-10-20] MEDS: INSULIN GLARGINE 100 UNIT/ML 10 ML VIAL SQ SCH (20:42)
[2016-10-21] MEDS: HEPARIN SODIUM,PORCINE 5,000 UNIT/ML 1 ML VIAL SQ SCH ×4 (01:13→23:09)
[2016-10-21] MEDS: VANCOMYCIN 2,250 MG in SODIUM CHLORIDE 0.9% 500 ML IVPB SCH ×3 (01:13→18:06)
[2016-10-21 03:03] LABS: Glucose,Whole Blood 130 mg/dL (75-99)
[2016-10-21 04:10] LABS: Glucose,Whole Blood 119 mg/dL (75-99)
[2016-10-21 07:24] LABS: ALT 42 U/L (21-72); AST 34 U/L (17-59); Alkaline Phosphatase 62 U/L (38-126); Anion Gap 9 mmol/L; Blood Urea Nitrogen 10 mg/dL (9-20); Carbon Dioxide 24 mmol/L (22-30); Chloride 104 mmol/L (98-107); Glucose 122 mg/dL (74-99); Non-African American GFR(MDRD) >60 (>60 ml/min/1.73 sqM); Sodium 137 mmol/L (137-145); Total Bilirubin 0.5 mg/dL (0.2-1.3); Total Protein 6.2 g/dL (6.3-8.2)
[2016-10-21 07:56] LABS: Glucose,Whole Blood 112 mg/dL (75-99)
[2016-10-21] MEDS: SODIUM CHLORIDE 0.9% 1,000 ML IV SCH ×2 (08:13→15:48)
[2016-10-21] MEDS: INSULIN LISPRO (humaLOG) 300 UNIT/3 ML VIAL SQ SCH ×6 (08:14→20:48)
[2016-10-21] MEDS: cefTRIAXone 2,000 MG in SODIUM CHLORIDE 0.9% 100 ML IVPB SCH (08:15)
[2016-10-21] MEDS: metFORMIN 500 MG TAB PO SCH ×2 (08:15→20:47)
[2016-10-21 11:46] LABS: Glucose,Whole Blood 158 mg/dL (75-99)
--- NOTE | 2016-10-21 12:22 | P.PN ---
Subjective Principal diagnosis: Diabetic foot ulcer to left foot POD #2 surgical debridement of left foot ulcer. Patient currently sitting up in bed in no acute distress. Denies pain. Wound VAC applied yesterday, appears to be functioning appropriately. Patient expressed great concern over management of wound VAC at home, hoping to get into rehab Objective - Vital Signs Vital signs: Vital Signs Temp 99.1 F 10/21/16 08:00 Pulse 103 H 10/21/16 08:00 Resp 20 10/21/16 08:00 BP 133/83 10/21/16 08:00 Pulse Ox 91 L 10/21/16 08:00 Intake & Output 10/20/16 10/21/16 10/21/16 18:59 06:59 18:59 Intake Total 800 500 Balance 800 500 Intake: Intake, IV Titration 800 500 Amount Clindamycin 900 mg In 50 Dextrose 5% in Water 50 ml @ 100 mls/hr IVPB Q8HR [facility] Rx#:[id number] IV Fluid Continuation 1, 650 000 ml As IV .STK-MED ONE Rx#:[id number] Vancomycin 2,250 mg In 500 Sodium Chloride 0.9% 500 ml @ 167 mls/hr IVPB Q8H [facility] Rx#:[id number] cefTRIAXone 2,000 mg In 100 Sodium Chloride 0.9% 100 ml @ 100 mls/hr IVPB Q24HR [facility] Rx#:[id number] Other: Voiding Method Toilet Toilet Toilet Urinal Urinal Urinal # Voids 1 - Constitutional General appearance: Present: cooperative, no acute distress - Respiratory Details: Lungs sounds diminished bilaterally. Respirations even, nonlabored. Currently on room air with oxygen saturations 94%. - Cardiovascular Details: S1, S2 present. Regular rate and rhythm - Gastrointestinal Gastrointestinal Comment(s): Abdomen soft, nontender, nondistended, morbidly obese. Bowel sounds present 4 quadrants. Tolerating diet. - Genitourinary Genitourinary Comment(s): Continues to void clear, yellow urine. - Integumentary Integumentary Comment(s): Left lower extremity wound VAC present, appears to be functioning appropriately. - Musculoskeletal Musculoskeletal: Present: strength equal bilaterally - Psychiatric Psychiatric: Present: A&O x's 3 - Allied health notes Allied health notes reviewed: case management - Labs CBC & Chem 7: 10/18/16 06:03 07/08/17 06:36 Labs: Abnormal Lab Results - Last 24 Hours (Table) 10/20/16 10/20/16 10/21/16 Range/Units 16:51 20:12 03:01 Creatinine (0.66-1.25) mg/dL Glucose (74-99) mg/dL POC Glucose (mg/dL) 153 H 183 H 130 H (75-99) mg/dL Calcium (8.4-10.2) mg/dL Total Protein (6.3-8.2) g/dL Albumin (3.5-5.0) g/dL 10/21/16 10/21/16 10/21/16 Range/Units 04:08 06:36 07:49 Creatinine 0.59 L (0.66-1.25) mg/dL Glucose 122 H (74-99) mg/dL POC Glucose (mg/dL) 119 H 112 H (75-99) mg/dL Calcium 8.0 L (8.4-10.2) mg/dL Total Protein 6.2 L (6.3-8.2) g/dL Albumin 2.6 L (3.5-5.0) g/dL 10/21/16 Range/Units 11:44 Creatinine (0.66-1.25) mg/dL Glucose (74-99) mg/dL POC Glucose (mg/dL) 158 H (75-99) mg/dL Calcium (8.4-10.2) mg/dL Total Protein (6.3-8.2) g/dL Albumin (3.5-5.0) g/dL Microbiology - Last 24 Hours (Table) 10/16/16 22:30 Blood Culture - Preliminary Blood No Growth after 96 hours 10/18/16 17:27 Blood Culture - Preliminary Blood No Growth after 48 hours 10/18/16 17:03 Blood Culture - Preliminary Blood No Growth after 48 hours 10/16/16 22:30 Gram Stain - Final Foot - Left Wound Culture - Final Beta Hemolytic Strep Group C Enterobacter hormaechei Methicillin resist S. aureus Providencia stuartii - Imaging and Cardiology Results of bone scan reviewed Assessment and Plan (1) Type 2 diabetes mellitus Status: Acute (2) Morbid obesity with BMI of 40.0-44.9, adult Status: Acute (3) Diabetic ulcer of left foot associated with diabetes mellitus due to underlying condition Status: Acute (4) 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 Wound VAC to left foot to be changed Sunday, Sunday, Sunday. 2. Antibiotics per infectious disease recommendations. 3. Reinforced again with patient that he is to refrain from putting any weight on his left leg. Should he choose to disregard this warning he does run the risk of needing amputation. Physical therapy following. 4. Medical management per primary care service. 5. Upon discharge patient is to follow with Dr. Morales in the wound care center. 6. Would highly recommend rehabilitation facility at discharge as patient is unable to manage wound VAC, antibiotics and PICC line, family responsibilities at home. In addition, patient does not have reliable transportation to get to and from the wound care center. Case management has sent out referrals. Time with Patient: Greater than 30
[2016-10-21] MEDS: metroNIDAZOLE 500 MG TAB PO SCH ×2 (15:48→20:47)
--- NOTE | 2016-10-21 17:25 | P.PN ---
Subjective We are covering for Dr. VERDE, today. Interval history, 10/20/16-this is a 41-year-old male sitting up in bedside chair, being seen and examined this morning. Patient had a incision and drainage left foot diabetic ulcer on the plantar side by Dr. Morales 10/19/2016. Patient is well-known to Dr. Morales and has been seen in the past in the wound care center for osteomyelitis and diabetic foot ulcer. Patient denies shortness of breath dizziness lightheadedness or chest pain dressing to the left foot serous drainage noted. Nonpitting edema bilateral lower extremities persist with chronic venous stasis changes. 10/21/16- upon examination today the patient does have his wound vac on, his PICC line is also in place. The patient states he and his are unable to take care of the wound and PICC line at home. the patient would best benefit from a snf faciltiy, as the patient is unable to bear weight as well. Objective - Vital Signs Vital signs: Vital Signs Temp 99.1 F 10/21/16 08:00 Pulse 103 H 10/21/16 08:00 Resp 20 10/21/16 16:00 BP 133/83 10/21/16 08:00 Pulse Ox 91 L 10/21/16 08:00 Intake & Output 10/20/16 10/21/16 10/21/16 18:59 06:59 18:59 Intake Total 800 500 600 Output Total 503 Balance 800 500 97 Intake: Intake, IV Titration 800 500 Amount Clindamycin 900 mg In 50 Dextrose 5% in Water 50 ml @ 100 mls/hr IVPB Q8HR JOS[facility] Rx#:[id number] IV Fluid Continuation 1, 650 000 ml As IV .STK-MED ONE Rx#:[id number] Vancomycin 2,250 mg In 500 Sodium Chloride 0.9% 500 ml @ 167 mls/hr IVPB Q8H JOS[facility] Rx#:[id number] cefTRIAXone 2,000 mg In 100 Sodium Chloride 0.9% 100 ml @ 100 mls/hr IVPB Q24HR JOSH Rx#:[id number] Oral 600 Output: Urine 503 Other: Voiding Method Toilet Toilet Toilet Urinal Urinal Urinal # Voids 1 - Exam GENERAL EXAM: Alert, comfortable in no apparent distress. HEAD: Normocephalic. EYES: Normal reaction of pupils, equal size. NOSE: Clear with pink turbinates. THROAT: No erythema or exudates. NECK: No masses, no JVD. CHEST: No chest wall deformity. LUNGS: Equal air entry with no crackles, wheeze, rhonchi or dullness. CVS: S1 and S2 normal with no audible mumurs, regular rhythm. ABDOMEN: Obese No hepatosplenomegaly, normal bowel sounds, no guarding or rigidity. EXTREMITIES: Upper extremities unremarkable, lower extremity left second toe purple left foot swollen, warm to touch. Foot is wrapped with a white gauze bandage. Right lower extremity chronic venous stasis noted. No edema noted, pedal pulses palpable. CENTRAL NERVOUS SYSTEM: No focal deficits, tone is normal in all 4 extremities. - Labs CBC & Chem 7: 10/18/16 06:03 10/21/16 06:36 Labs: Abnormal Lab Results - Last 24 Hours (Table) 10/20/16 10/21/16 10/21/16 Range/Units 20:12 03:01 04:08 Creatinine (0.66-1.25) mg/dL Glucose (74-99) mg/dL POC Glucose (mg/dL) 183 H 130 H 119 H (75-99) mg/dL Calcium (8.4-10.2) mg/dL Total Protein (6.3-8.2) g/dL Albumin (3.5-5.0) g/dL 10/21/16 10/21/16 10/21/16 Range/Units 06:36 07:49 11:44 Creatinine 0.59 L (0.66-1.25) mg/dL Glucose 122 H (74-99) mg/dL POC Glucose (mg/dL) 112 H 158 H (75-99) mg/dL Calcium 8.0 L (8.4-10.2) mg/dL Total Protein 6.2 L (6.3-8.2) g/dL Albumin 2.6 L (3.5-5.0) g/dL Microbiology - Last 24 Hours (Table) 10/17/16 09:45 Anaerobic Culture - Final Foot - Left Anaerobic Gm Negative Bacilli 10/16/16 22:30 Blood Culture - Preliminary Blood No Growth after 96 hours 10/18/16 17:27 Blood Culture - Preliminary Blood No Growth after 48 hours 10/18/16 17:03 Blood Culture - Preliminary Blood No Growth after 48 hours Assessment and Plan Plan: Assessment Leukocytosis sepsis suspect related to diabetic ulcer Peripheral sensory neuropathy due to type 2 diabetes mellitus Left foot diabetic ulcer Diabetes mellitus type 2 uncontrolled Morbid obesity History of osteomyelitis in the past. Plan Medications have been reviewed and will be continued as ordered. Continue with IV antibiotics. Patient did undergo a debridement with Dr. Morales on 2016. Patient is also being seen by infectious disease. Patient is nonweightbearing to his left foot. Continue with wound vac orderes. Picc line in place. Patient will need skilled nurisng rehab facility. Case mangement/ social work involved with discharge plans. Continue with pulmonary hygiene, coughing and deep breathing exercises, and supportive care. GI and DVT prophylaxis. We will continue to monitor labs/results and adjust treatment as necessary. Further recommendations pending. I performed an examination of the patient and discussed their management with the nurse practitioner. I have reviewed the nurse practitioner's note and agree with the documented findings and plan of care.
[2016-10-21 17:46] LABS: Glucose,Whole Blood 184 mg/dL (75-99)
[2016-10-21 20:28] LABS: Glucose,Whole Blood 194 mg/dL (75-99)
[2016-10-21] MEDS: FAMOTIDINE 20 MG TAB PO SCH (20:47)
[2016-10-21] MEDS: INSULIN GLARGINE 100 UNIT/ML 10 ML VIAL SQ SCH (20:48)
[2016-10-22] MEDS: VANCOMYCIN 2,250 MG in SODIUM CHLORIDE 0.9% 500 ML IVPB SCH ×3 (02:04→17:37)
[2016-10-22] MEDS: SODIUM CHLORIDE 0.9% 1,000 ML IV SCH ×3 (06:44→16:53)
[2016-10-22] MEDS: cefTRIAXone 2,000 MG in SODIUM CHLORIDE 0.9% 100 ML IVPB SCH (07:20)
[2016-10-22] MEDS: HEPARIN SODIUM,PORCINE 5,000 UNIT/ML 1 ML VIAL SQ SCH ×2 (07:20→15:48)
[2016-10-22] MEDS: metFORMIN 500 MG TAB PO SCH ×2 (07:21→21:38)
[2016-10-22] MEDS: metroNIDAZOLE 500 MG TAB PO SCH ×3 (07:22→21:38)
[2016-10-22] MEDS: INSULIN LISPRO (humaLOG) 300 UNIT/3 ML VIAL SQ SCH ×6 (07:24→21:38)
[2016-10-22 07:25] LABS: Glucose,Whole Blood 120 mg/dL (75-99)
[2016-10-22] MEDS ORDERED: VANCOMYCIN TROUGH DUE 1 EACH MISC MISCELLANE ONE (09:00)
--- NOTE | 2016-10-22 10:10 | P.PN ---
Subjective We are covering for Dr. VERDE, today. Interval history, 10/20/16-this is a 41-year-old male sitting up in bedside chair, being seen and examined this morning. Patient had a incision and drainage left foot diabetic ulcer on the plantar side by Dr. Morales 10/19/2016. Patient is well-known to Dr. Morales and has been seen in the past in the wound care center for osteomyelitis and diabetic foot ulcer. Patient denies shortness of breath dizziness lightheadedness or chest pain dressing to the left foot serous drainage noted. Nonpitting edema bilateral lower extremities persist with chronic venous stasis changes. 10/21/16- upon examination today the patient does have his wound vac on, his PICC line is also in place. The patient states he and his are unable to take care of the wound and PICC line at home. the patient would best benefit from a usp faciltiy, as the patient is unable to bear weight as well. 10/22/16- upon examination today the patient continues to have the wound VAC on, serosanguineous drainage noted in the chamber. Patient continues to deny any cough congestion or shortness of breath. He has been afebrile. No events overnight. Tolerating his diet well. States he is also working with therapy. Patient is nonweightbearing to the left foot. Currently the plan is to continue to have the patient go to a usp/rehabilitation facility. Objective - Vital Signs Vital signs: Vital Signs Temp 97.7 F 10/22/16 08:00 Pulse 92 10/22/16 08:00 Resp 20 10/22/16 08:00 BP 146/58 10/22/16 08:00 Pulse Ox 90 L 10/22/16 08:00 Intake & Output 10/21/16 10/22/16 10/22/16 18:59 06:59 18:59 Intake Total 600 1700 Output Total 503 Balance 97 1700 Intake: Intake, IV Titration 1700 Amount IV Fluid Continuation 1, 350 000 ml As IV .STK-MED ONE Rx#:[id number] Sodium Chloride 0.9% 1, 600 000 ml @ 100 mls/hr IV . Q10H JOS[facility] Rx#:[id number] Vancomycin 2,250 mg In 750 Sodium Chloride 0.9% 500 ml @ 167 mls/hr IVPB Q8H JOS[facility] Rx#:[id number] Oral 600 Output: Urine 503 Other: Voiding Method Toilet Urinal Urinal Urinal - Exam GENERAL EXAM: Alert, comfortable in no apparent distress. HEAD: Normocephalic. EYES: Normal reaction of pupils, equal size. NOSE: Clear with pink turbinates. THROAT: No erythema or exudates. NECK: No masses, no JVD. CHEST: No chest wall deformity. LUNGS: Equal air entry with no crackles, wheeze, rhonchi or dullness. CVS: S1 and S2 normal with no audible mumurs, regular rhythm. ABDOMEN: Obese No hepatosplenomegaly, normal bowel sounds, no guarding or rigidity. EXTREMITIES: Upper extremities unremarkable, left lower extremity has a wound VAC attached to wound.. Right lower extremity chronic venous stasis noted. No edema noted, pedal pulses palpable. CENTRAL NERVOUS SYSTEM: No focal deficits, tone is normal in all 4 extremities. - Labs CBC & Chem 7: 10/18/16 06:03 10/21/16 06:36 Labs: Abnormal Lab Results - Last 24 Hours (Table) 10/21/16 10/21/16 10/21/16 Range/Units 11:44 17:41 20:26 POC Glucose (mg/dL) 158 H 184 H 194 H (75-99) mg/dL 10/22/16 Range/Units 07:08 POC Glucose (mg/dL) 120 H (75-99) mg/dL Microbiology - Last 24 Hours (Table) 10/16/16 22:30 Blood Culture - Preliminary Blood No Growth after 120 hours 10/17/16 16:00 Anaerobic Culture - Final Foot - Left Anaerobic Gm Negative Bacilli 10/18/16 17:27 Blood Culture - Preliminary Blood No Growth after 72 hours 10/18/16 17:03 Blood Culture - Preliminary Blood No Growth after 72 hours 10/17/16 09:45 Anaerobic Culture - Final Foot - Left Anaerobic Gm Negative Bacilli Assessment and Plan Plan: Assessment Leukocytosis sepsis suspect related to diabetic ulcer Peripheral sensory neuropathy due to type 2 diabetes mellitus Left foot diabetic ulcer Diabetes mellitus type 2 uncontrolled Morbid obesity History of osteomyelitis in the past. Plan Medications have been reviewed and will be continued as ordered. Continue with IV antibiotics. Patient did undergo a debridement with Dr. Morales on 2016. Patient is also being seen by infectious disease. Patient is nonweightbearing to his left foot. Continue with wound vac orderes. Picc line in place. Patient will need skilled nurisng rehab facility. Case mangement/ social work involved with discharge plans. Continue with pulmonary hygiene, coughing and deep breathing exercises, and supportive care. GI and DVT prophylaxis. We will continue to monitor labs/results and adjust treatment as necessary. Further recommendations pending. I performed an examination of the patient and discussed their management with the nurse practitioner. I have reviewed the nurse practitioner's note and agree with the documented findings and plan of care.
[2016-10-22 11:52] LABS: Glucose,Whole Blood 154 mg/dL (75-99)
[2016-10-22 16:48] LABS: Glucose,Whole Blood 171 mg/dL (75-99)
[2016-10-22 20:10] LABS: Glucose,Whole Blood 209 mg/dL (75-99)
[2016-10-22] MEDS: INSULIN GLARGINE 100 UNIT/ML 10 ML VIAL SQ SCH (21:37)
[2016-10-22] MEDS: FAMOTIDINE 20 MG TAB PO SCH (21:37)
[2016-10-22] MEDS ORDERED: HEPARIN SODIUM,PORCINE 5,000 UNIT/ML 1 ML VIAL ONE (23:55)
[2016-10-23] MEDS: HEPARIN SODIUM,PORCINE 5,000 UNIT/ML 1 ML VIAL SQ SCH ×3 (06:06→17:30)
[2016-10-23] MEDS: VANCOMYCIN 2,250 MG in SODIUM CHLORIDE 0.9% 500 ML IVPB SCH (06:06)
[2016-10-23] MEDS: ACETAMINOPHEN TAB 325 MG TAB PO PRN ×2 (06:19→23:31)
[2016-10-23 06:29] LABS: Basophils # (A) 0.1 k/uL (0-0.2); Basophils % (A) 1 %; CH 26.6; CHCM 31.9; Eosinophils # (A) 0.6 k/uL (0-0.7); Eosinophils % (A) 4 %; HCT 33.8 % (39.0-53.0); HGB 10.9 gm/dL (13.0-17.5); Hypochromasia Slight; Luc # (Auto) 0.14; Luc % (Auto) 1; Lymphocytes # (A) 2.1 k/uL (1.0-4.8); Lymphocytes % (A) 17 %; MCH 27.1 pg (25.0-35.0); MCHC 32.4 g/dL (31.0-37.0); MCV 83.8 fL (80.0-100.0); Mean Platelet Volume 6.8; Monocytes # (A) 0.4 k/uL (0-1.0); Monocytes % (A) 4 %; Neutrophils # (A) 9.1 k/uL (1.3-7.7); Neutrophils % (A) 74 %; RBC 4.03 m/uL (4.30-5.90); RDW 13.7 % (11.5-15.5); WBC 12.3 k/uL (3.8-10.6); WBC (Perox) 12.13
[2016-10-23 06:50] LABS: ALT 49 U/L (21-72); AST 36 U/L (17-59); Alkaline Phosphatase 61 U/L (38-126); Anion Gap 9 mmol/L; Blood Urea Nitrogen 9 mg/dL (9-20); Calcium 8.1 mg/dL (8.4-10.2); Carbon Dioxide 26 mmol/L (22-30); Chloride 105 mmol/L (98-107); Glucose 157 mg/dL (74-99); Non-African American GFR(MDRD) >60 (>60 ml/min/1.73 sqM); Potassium 4.2 mmol/L (3.5-5.1); Sodium 140 mmol/L (137-145); Total Bilirubin 0.4 mg/dL (0.2-1.3); Total Protein 6.4 g/dL (6.3-8.2)
[2016-10-23 07:21] LABS: Glucose,Whole Blood 165 mg/dL (75-99)
[2016-10-23] MEDS: INSULIN LISPRO (humaLOG) 300 UNIT/3 ML VIAL SQ SCH ×6 (07:29→21:29)
[2016-10-23] MEDS: cefTRIAXone 2,000 MG in SODIUM CHLORIDE 0.9% 100 ML IVPB SCH (08:11)
[2016-10-23] MEDS: metroNIDAZOLE 500 MG TAB PO SCH ×3 (08:11→21:30)
[2016-10-23] MEDS: metFORMIN 500 MG TAB PO SCH ×2 (08:11→21:30)
[2016-10-23] MEDS: SODIUM CHLORIDE 0.9% 1,000 ML IV SCH ×2 (08:14→17:30)
[2016-10-23 11:18] LABS: Glucose,Whole Blood 168 mg/dL (75-99)
--- NOTE | 2016-10-23 12:04 | P.PN ---
Subjective Principal diagnosis: Left diabetic foot infection Patient is a 41-year-old male admitted hospital with significant left diabetic foot infection with infected blister on the plantar aspect of his left foot, the patient did have extensive prominent of this infected blister , the patient fever has resolved and denies significant chest pain shortness of breath or cough no abdominal pain and no diarrhea denies any worsening pain in his left foot Objective - Vital Signs Vital signs: Vital Signs Temp 97.7 F 10/23/16 07:53 Pulse 85 10/23/16 07:53 Resp 16 10/23/16 07:53 BP 139/70 10/23/16 07:53 Pulse Ox 92 L 10/23/16 07:53 Intake & Output 10/22/16 10/23/16 10/23/16 18:59 06:59 18:59 Intake Total 800 1500 Balance 800 1500 Intake: Intake, IV Titration 1500 Amount Sodium Chloride 0.9% 1, 500 000 ml @ 100 mls/hr IV . Q10H [facility]OS[facility] Rx#:[id number] Vancomycin 2,250 mg In 1000 Sodium Chloride 0.9% 500 ml @ 167 mls/hr IVPB Q8H J[facility] Rx#:[id number] Oral 800 Other: Voiding Method Urinal Toilet Urinal # Voids 2 # Bowel Movements 1 - Exam Middle-aged male up in the bed in no distress Respiratory system: Unlabored breathing and is clear to auscultation Heart : S1,S2 RRR Abdomen: Soft no tenderness extremities: Left foot wound is currently covered with a wound VAC - Labs CBC & Chem 7: 10/23/16 06:15 10/23/16 06:15 Labs: Abnormal Lab Results - Last 24 Hours (Table) 10/22/16 10/22/16 10/22/16 Range/Units 11:43 16:46 20:09 WBC (3.8-10.6) k/uL RBC (4.30-5.90) m/uL Hgb (13.0-17.5) gm/dL Hct (39.0-53.0) % Neutrophils # (1.3-7.7) k/uL Creatinine (0.66-1.25) mg/dL Glucose (74-99) mg/dL POC Glucose (mg/dL) 154 H 171 H 209 H (75-99) mg/dL Calcium (8.4-10.2) mg/dL Albumin (3.5-5.0) g/dL 10/23/16 10/23/16 10/23/16 Range/Units 06:15 06:15 07:12 WBC 12.3 H (3.8-10.6) k/uL RBC 4.03 L (4.30-5.90) m/uL Hgb 10.9 L (13.0-17.5) gm/dL Hct 33.8 L (39.0-53.0) % Neutrophils # 9.1 H (1.3-7.7) k/uL Creatinine 0.63 L (0.66-1.25) mg/dL Glucose 157 H (74-99) mg/dL POC Glucose (mg/dL) 165 H (75-99) mg/dL Calcium 8.1 L (8.4-10.2) mg/dL Albumin 2.7 L (3.5-5.0) g/dL Microbiology - Last 24 Hours (Table) 10/16/16 22:30 Blood Culture - Final Blood No Growth after 144 hours 10/18/16 17:27 Blood Culture - Preliminary Blood No Growth after 96 hours 10/18/16 17:03 Blood Culture - Preliminary Blood No Growth after 96 hours Assessment and Plan (1) Diabetic ulcer of left foot associated with diabetes mellitus due to underlying condition Status: Acute (2) Sepsis Status: Acute Plan: 1- patient with sepsis admitted to hospital with a fever of 103 did have elevated white count source is left diabetic foot infection with significant foul-smelling likely polymicrobial infection , wound culture done in the wound has been finalized with group C streptococcus also showing in the blood, he did have multiple pathogen growing from initial cultures done at the bedside with question of possible contamination. 2-plan at this time is to continue antibiotic in the form of Rocephin 2 g daily along with oral Flagyl for at least 4-6 weeks local wound care will continue with the wound VAC And the patient will follow-up in the office in about a week time
[2016-10-23] MEDS: CEFTAROLINE FOSAMIL 600 MG in SODIUM CHLORIDE 0.9% 250 ML IVPB SCH ×2 (12:06→21:28)
--- NOTE | 2016-10-23 14:53 | P.PN ---
Subjective 41-year-old gentleman sitting up in bed discharge plan is in progress. Patient is being evaluated for possible subacute rehab. Patient has a wound VAC in place for a left diabetic foot infection in which the patient underwent a debridement by Dr. Morales patient's currently being followed by infectious disease Patient's initial presentation to the emergency room with sepsis temp of 103 elevated white count felt to be due to a left diabetic foot infection with a significant foul smelling likely polymicrobial infection. Patient had significant left diabetic foot infection with infected blister on the plantar aspect of his left foot Patient was seen by Dr. Morales vascular move the patient is known to the service did undergo a debridement of the left foot diabetic wound ulcer. Wound VAC was also placed done on October 19. Bone scan was also obtained to determine if future treatment with hyperbaric therapy would be appropriate. Antibiotics were per infectious diseases recommendations. Dr. Morales did recommend and reinforced to the patient that he needed to refrain from putting any weight on his left leg. Should the patient disregard this warning he did run the risk of needing an amputation of the affected leg. This was reinforced strenuously with the patient and the patient' A PICC line was inserted on the october in anticipation that the patient would need IV antibiotic treatment per recommendations of infectious diseases Objective - Vital Signs Vital signs: Vital Signs Temp 97.7 F 10/23/16 07:53 Pulse 85 10/23/16 07:53 Resp 16 10/23/16 08:00 BP 139/70 10/23/16 07:53 Pulse Ox 92 L 10/23/16 07:53 Intake & Output 10/22/16 10/23/16 10/23/16 18:59 06:59 18:59 Intake Total 800 1500 Balance 800 1500 Intake: Intake, IV Titration 1500 Amount Sodium Chloride 0.9% 1, 500 000 ml @ 100 mls/hr IV . 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 Lungs essentially clear adequate air movement on room air no shortness of breath noted Heart S1-S2 audible and regular denying chest pain Abdomen obese soft nontender reports of nausea vomiting reports of difficulty in urinating no frequent stooling Extremities upper extremities unremarkable the right lower extremity chronic venous stasis noted left lower extremity wound VAC in place dressing to the left foot dry - Labs CBC & Chem 7: 10/23/16 06:15 10/23/16 06:15 Labs: Abnormal Lab Results - Last 24 Hours (Table) 10/22/16 10/22/16 10/23/16 Range/Units 16:46 20:09 06:15 WBC 12.3 H (3.8-10.6) k/uL RBC 4.03 L (4.30-5.90) m/uL Hgb 10.9 L (13.0-17.5) gm/dL Hct 33.8 L (39.0-53.0) % Neutrophils # 9.1 H (1.3-7.7) k/uL Creatinine (0.66-1.25) mg/dL Glucose (74-99) mg/dL POC Glucose (mg/dL) 171 H 209 H (75-99) mg/dL Calcium (8.4-10.2) mg/dL Albumin (3.5-5.0) g/dL 10/23/16 10/23/16 10/23/16 Range/Units 06:15 07:12 11:08 WBC (3.8-10.6) k/uL RBC (4.30-5.90) m/uL Hgb (13.0-17.5) gm/dL Hct (39.0-53.0) % Neutrophils # (1.3-7.7) k/uL Creatinine 0.63 L (0.66-1.25) mg/dL Glucose 157 H (74-99) mg/dL POC Glucose (mg/dL) 165 H 168 H (75-99) mg/dL Calcium 8.1 L (8.4-10.2) mg/dL Albumin 2.7 L (3.5-5.0) g/dL Microbiology - Last 24 Hours (Table) 10/16/16 22:30 Blood Culture - Final Blood No Growth after 144 hours 10/18/16 17:27 Blood Culture - Preliminary Blood No Growth after 96 hours 10/18/16 17:03 Blood Culture - Preliminary Blood No Growth after 96 hours Assessment and Plan Plan: Impression Present on admission increased swelling left foot suspect due to diabetic ulcer of the left foot associated with diabetes mellitus due to underlying condition Diabetes insulin requiring uncontrolled hemoglobin A1c 8 Morbid obesity BMI 43 Present on admission febrile tachycardic leukocytosis sepsis suspect due to diabetic ulcer left foot plantar side significant foul-smelling likely polymicrobial infection with positive wound cultures finalized with group C streptococcus also showing in the blood 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 Morales Continue with nonweightbearing left foot Monitor blood sugars address as indicated DVT and GI prophylaxis The above impression and plan of care have been discussed and directed by signing physician. Tamica Mckeon nurse practitioner acting as scribe for signing physician.
[2016-10-23] MEDS: HYDROcodone/APAP 5-325MG 1 EACH TAB PO PRN (16:53)
[2016-10-23 17:15] LABS: Glucose,Whole Blood 173 mg/dL (75-99)
[2016-10-23] MEDS: LISINOPRIL 20 MG TAB PO SCH (17:30)
[2016-10-23 20:19] LABS: Glucose,Whole Blood 163 mg/dL (75-99)
[2016-10-23] MEDS: FAMOTIDINE 20 MG TAB PO SCH (21:28)
[2016-10-23] MEDS: INSULIN GLARGINE 100 UNIT/ML 10 ML VIAL SQ SCH (21:33)
[2016-10-24] MEDS: HEPARIN SODIUM,PORCINE 5,000 UNIT/ML 1 ML VIAL SQ SCH ×3 (00:09→17:38)
[2016-10-24] MEDS: SODIUM CHLORIDE 0.9% 1,000 ML IV SCH ×2 (06:28→17:47)
[2016-10-24 07:16] LABS: Glucose,Whole Blood 103 mg/dL (75-99)
[2016-10-24] MEDS: metroNIDAZOLE 500 MG TAB PO SCH ×3 (07:20→20:30)
[2016-10-24] MEDS: INSULIN LISPRO (humaLOG) 300 UNIT/3 ML VIAL SQ SCH ×6 (07:20→20:30)
[2016-10-24] MEDS: LISINOPRIL 20 MG TAB PO SCH (07:20)
[2016-10-24] MEDS: metFORMIN 500 MG TAB PO SCH ×2 (07:20→20:29)
[2016-10-24] MEDS: CEFTAROLINE FOSAMIL 600 MG in SODIUM CHLORIDE 0.9% 250 ML IVPB SCH ×2 (07:21→20:28)
[2016-10-24 11:26] LABS: Glucose,Whole Blood 140 mg/dL (75-99)
--- NOTE | 2016-10-24 11:38 | P.DS ---
Providers Date of admission: 10/17/16 00:49 Expected date of discharge: 10/24/16 Attending physician: Bunny Ruth Consults: 10/17/16 00:50 Consult Physician Routine Consulting Provider: Maria Elena To Consult Reason/Comments: diabetic foot infection Do you want consulting provider notified?: Yes 10/17/16 00:51 Consult Physician Routine Consulting Provider: Deni Sutton Consult Reason/Comments: diabetic foot infection Do you want consulting provider notified?: Yes 10/18/16 08:45 Consult Physician Urgent Consulting Provider: Erwin Morales Consult Reason/Comments: diabetic foot rani Do you want consulting provider notified?: Yes Primary care physician: [facility] Course: Patient's initial presentation to the emergency room with sepsis temp of 103 elevated white count felt to be due to a left diabetic foot infection with a significant foul smelling likely polymicrobial infection. Patient had significant left diabetic foot infection with infected blister on the plantar aspect of his left foot Patient was seen by Dr. Morales vascular move the patient is known to the service did undergo a debridement of the left foot diabetic wound ulcer. Wound VAC was also placed done on October 19. Bone scan was also obtained to determine if future treatment with hyperbaric therapy would be appropriate. Antibiotics were per infectious diseases recommendations. Dr. Morales did recommend and reinforced to the patient that he needed to refrain from putting any weight on his left leg. Should the patient disregard this warning he did run the risk of needing an amputation of the affected leg. This was reinforced strenuously with the patient and the patient ' A PICC line was inserted on the october in anticipation that the patient would need IV antibiotic treatment per recommendations of infectious diseases Impression Present on admission increased swelling left foot suspect due to diabetic ulcer of the left foot associated with diabetes mellitus due to underlying condition 2 type Diabetes insulin requiring uncontrolled hemoglobin A1c 8 Morbid obesity BMI 43 Present on admission febrile tachycardic leukocytosis sepsis suspect due to diabetic ulcer left foot plantar side significant foul-smelling likely polymicrobial infection with positive wound cultures finalized with group C streptococcus also showing in the blood Peripheral sensory neuropathy due to type 2 diabetes mellitus Leukocytosis persist Debilitated with limited mobility nonweightbearing left foot due to the diabetic ulcer Diabetic ulcer of left foot associated with diabetes mellitus due to underlying condition The above impression and plan of care have been discussed and directed by signing physician. Tamica Mckeon nurse practitioner acting as scribe for signing physician. Patient Condition at Discharge: Serious Plan - Discharge Summary New Discharge Prescriptions: New metroNIDAZOLE [Flagyl] 500 mg PO TID #126 tab cefTRIAXone [Rocephin] 2,000 mg IVPB Q24HR #42 vial Acetaminophen Tab [Tylenol] 650 mg PO Q4HR PRN tab PRN Reason: Mild Pain Or Fever > 100.5 HYDROcodone/APAP 5-325MG [[place] 5-325] 1 each PO Q4HR PRN #30 tab PRN Reason: Moderate Pain Lisinopril [Zestril] 20 mg PO DAILY tab metroNIDAZOLE [Flagyl] 500 mg PO TID tab Ibuprofen [Motrin] 400 mg PO Q4HR PRN #30 tab PRN Reason: Mild Pain Or Fever > 100.5 Continue Insulin Glargine,Hum.rec.anlog [Lantus Solostar] 40 unit SQ HS #30 pen Insulin Aspart [NovoLOG Flexpen] 2 units SQ AC-BID metFORMIN HCL [Glucophage] 500 mg PO BID Discharge Medication List Insulin Glargine,Hum.rec.anlog [Lantus Solostar] 40 unit SQ HS #30 pen 04/02/15 [Rx] Insulin Aspart [NovoLOG Flexpen] 2 units SQ AC-BID 04/08/15 [History] metFORMIN HCL [Glucophage] 500 mg PO BID 06/30/16 [History] cefTRIAXone [Rocephin] 2,000 mg IVPB Q24HR #42 vial 10/23/16 [Rx] metroNIDAZOLE [Flagyl] 500 mg PO TID #126 tab 10/23/16 [Rx] Acetaminophen Tab [Tylenol] 650 mg PO Q4HR PRN tab 10/24/16 [Rx] HYDROcodone/APAP 5-325MG [Mil[place] 5-325] 1 each PO Q4HR PRN #30 tab 10/24/16 [Rx] Ibuprofen [Motrin] 400 mg PO Q4HR PRN #30 tab 10/24/16 [Rx] Lisinopril [Zestril] 20 mg PO DAILY tab 10/24/16 [Rx] metroNIDAZOLE [Flagyl] 500 mg PO TID tab 10/24/16 [Rx] Follow up Appointment(s)/Referral(s): Bunny Ruth MD [Primary Care Provider] - 1-2 days [facility], [NON-STAFF] - [facility],. [NON-STAFF] - 1 Week (please see Dr. Morales in the wound care center every week) Maria Elena To MD [STAFF PHYSICIAN] - 1 Week Activity/Diet/Wound Care/Special Instructions: Wound vac to be changed Sunday, Sunday, Sunday Discharge Disposition: TRANSFER TO SNF/ECF
--- NOTE | 2016-10-24 12:36 | P.PN ---
Progress Note - Text Subjective: Patient has no current complaints. Objective: Since I last looked at his foot the second toe has become dusky and macerated. There is a crease next to the second toe that goes down deep into the foot. Assessment: Obviously there was a non-apparent tract with deep infection of the foot. Plan: I discussed with the patient, the options involved. I recommended we proceed with an aggressive debridement including amputation of the second toe. We do not yet know the extent of the debridement needed beyond that. He agrees and we'll proceed tomorrow.
--- NOTE | 2016-10-24 14:01 | P.PN ---
Progress Note - Text The discharge plan transfer to [facility] has been canceled for now. Dr. Morales vascular evaluated the patient this morning reviewing the note he indicates that the patient's foot the left second great toe has become dusky and macerated. There is concern for a non-apparent track with a deep infection of the left second toe The plan is to do aggressive debridement including an amputation of the second toe this will be done tomorrow and further recommendations pending The above impression and plan of care have been discussed and directed by signing physician. Tamica Mckeon nurse practitioner acting as scribe for signing physician.
[2016-10-24 17:57] LABS: Glucose,Whole Blood 154 mg/dL (75-99)
[2016-10-24 20:19] LABS: Glucose,Whole Blood 175 mg/dL (75-99)
[2016-10-24] MEDS: INSULIN GLARGINE 100 UNIT/ML 10 ML VIAL SQ SCH (20:29)
[2016-10-24] MEDS: HYDROcodone/APAP 5-325MG 1 EACH TAB PO PRN (20:29)
[2016-10-24] MEDS: FAMOTIDINE 20 MG TAB PO SCH (20:30)
[2016-10-25] MEDS: HEPARIN SODIUM,PORCINE 5,000 UNIT/ML 1 ML VIAL SQ SCH ×3 (00:21→15:17)
[2016-10-25] MEDS: SODIUM CHLORIDE 0.9% 1,000 ML IV SCH ×2 (05:01→15:23)
[2016-10-25 07:13] LABS: Glucose,Whole Blood 96 mg/dL (75-99)
[2016-10-25 07:56] LABS: Basophils # (A) 0.1 k/uL (0-0.2); Basophils % (A) 1 %; CH 26.4; CHCM 32.3; Eosinophils # (A) 0.4 k/uL (0-0.7); Eosinophils % (A) 3 %; HCT 32.2 % (39.0-53.0); HDW 3.48; HGB 10.7 gm/dL (13.0-17.5); Hypochromasia Slight; Luc # (Auto) 0.16; Luc % (Auto) 1; Lymphocytes # (A) 1.7 k/uL (1.0-4.8); Lymphocytes % (A) 15 %; MCH 27.2 pg (25.0-35.0); MCHC 33.1 g/dL (31.0-37.0); Mean Platelet Volume 6.5; Monocytes # (A) 0.4 k/uL (0-1.0); Monocytes % (A) 3 %; Neutrophils # (A) 9.2 k/uL (1.3-7.7); Neutrophils % (A) 77 %; Poikilocytosis Slight; RBC 3.93 m/uL (4.30-5.90); RDW 13.8 % (11.5-15.5); WBC 11.9 k/uL (3.8-10.6)
[2016-10-25 08:02] LABS: INR 1.2 (<1.1); Prothrombin Time 11.9 sec (9.0-12.0)
[2016-10-25 08:14] LABS: ALT 43 U/L (21-72); AST 32 U/L (17-59); Alkaline Phosphatase 49 U/L (38-126); Anion Gap 8 mmol/L; Blood Urea Nitrogen 9 mg/dL (9-20); Calcium 7.9 mg/dL (8.4-10.2); Carbon Dioxide 26 mmol/L (22-30); Chloride 103 mmol/L (98-107); Glucose 97 mg/dL (74-99); Non-African American GFR(MDRD) >60 (>60 ml/min/1.73 sqM); Sodium 137 mmol/L (137-145); Total Bilirubin 0.5 mg/dL (0.2-1.3); Total Protein 6.3 g/dL (6.3-8.2)
[2016-10-25] MEDS: INSULIN LISPRO (humaLOG) 300 UNIT/3 ML VIAL SQ SCH ×6 (08:40→21:33)
[2016-10-25] MEDS: CEFTAROLINE FOSAMIL 600 MG in SODIUM CHLORIDE 0.9% 250 ML IVPB SCH (08:41)
[2016-10-25] MEDS: metFORMIN 500 MG TAB PO SCH ×2 (08:59→21:33)
[2016-10-25] MEDS: metroNIDAZOLE 500 MG TAB PO SCH ×3 (09:00→21:33)
[2016-10-25 10:19] LABS: Glucose,Whole Blood 104 mg/dL (75-99)
--- NOTE | 2016-10-25 10:44 | P.ARTDOP ---
Arterial Doppler LOWER EXTREMITY ARTERIAL DOPPLER: DATE OF SERVICE: 10/17/2016 Reason for study: Diabetic foot ulcer. Doppler waveforms: Multiphasic bilaterally throughout. Pulse volume recording: Normal configuration. Pressure gradients: None. Ankle-brachial indices: Greater than 1 bilaterally. Toe pressures: 108 on the right, deferred on the left Impression: Normal study.
--- NOTE | 2016-10-25 10:47 | P.PN ---
Subjective Principal diagnosis: Left diabetic foot infection Patient is a 41-year-old male admitted hospital with significant left diabetic foot infection with infected blister on the plantar aspect of his left foot, the patient did have debridement of the blister and currently the wound is treated with a wound VAC the patient also to have significant maceration of the surrounding area though the patient denies significant pain swelling persisted though redness has improved the patient denies significant chest pain shortness of cough no abdominal pain though do complain of some diarrhea about 2 -3 episodes per day Objective - Vital Signs Vital signs: Vital Signs Temp 97.7 F 10/24/16 07:54 Pulse 90 10/24/16 08:00 Resp 18 10/24/16 08:00 BP 162/89 10/24/16 07:54 Pulse Ox 97 10/24/16 07:54 Intake & Output 10/23/16 10/24/16 10/24/16 18:59 06:59 18:59 Intake Total 950 1190 Output Total 900 450 Balance 50 1190 -450 Weight 141 kg Intake: Intake, IV Titration 950 950 Amount Ceftaroline Fosamil 600 250 250 mg In Sodium Chloride 0.9 % 250 ml @ 250 mls/hr IVPB Q12HR [facility] Rx#: [id number] IV Fluid Continuation 1, 700 000 ml As IV .[facility] Rx#:[id number] Sodium Chloride 0.9% 1, 700 000 ml @ 100 mls/hr IV . Q10H [facility] Rx#:[id number] Oral 240 Output: Urine 900 450 Other: Voiding Method Toilet Toilet Toilet Urinal Urinal Urinal # Voids 2 # Bowel Movements 1 1 - Exam Middle-aged male up in the bed in no distress Respiratory system: Unlabored breathing and is clear to auscultation Heart : S1,S2 RRR Abdomen: Soft no tenderness extremities: Left foot wound is currently covered with a wound VAC, did have some surrounding maceration swelling of the foot persisted but the redness is improved - Labs CBC & Chem 7: 10/25/16 07:42 10/25/16 07:42 Labs: Abnormal Lab Results - Last 24 Hours (Table) 10/23/16 10/23/16 10/24/16 Range/Units 17:12 20:15 07:12 POC Glucose (mg/dL) 173 H 163 H 103 H (75-99) mg/dL 10/24/16 Range/Units 11:23 POC Glucose (mg/dL) 140 H (75-99) mg/dL Microbiology - Last 24 Hours (Table) 10/18/16 17:27 Blood Culture - Preliminary Blood No Growth after 120 hours 10/18/16 17:03 Blood Culture - Preliminary Blood No Growth after 120 hours Assessment and Plan (1) Diabetic ulcer of left foot associated with diabetes mellitus due to underlying condition Status: Acute (2) Sepsis Status: Acute Plan: 1- patient with sepsis admitted to hospital with a fever of 103 did have elevated white count source is left diabetic foot infection with significant foul-smelling likely polymicrobial infection , wound culture done in the wound has been finalized with group C streptococcus also showing in the blood, he did have multiple pathogen growing from initial cultures done at the bedside with question of possible contamination. 2-plan at this time is to continue antibiotic in the form of Rocephin 2 g daily along with oral Flagyl 3-patient possibly going back to the OR tomorrow for further debridement and possible amputation of the toe per vascular surgery Time with Patient: Less than 30
--- NOTE | 2016-10-25 11:27 | P.PN ---
Subjective 41-year-old male being seen this morning. Patient is aware the plan of care. Patient is scheduled by vascular surgery this afternoon to have left second left second toe amputation. The Doppler arterial studies done today normal study. Resting in bed denies dizziness lightheadedness denies chest pain or shortness of breath. Patient states after the procedure he was told the next couple days he would be going to the rehab center and is agreeing Objective - Vital Signs Vital signs: Vital Signs Temp 97.4 F L 10/25/16 07:00 Pulse 90 10/25/16 07:00 Resp 20 10/25/16 07:00 BP 158/87 10/25/16 07:00 Pulse Ox 94 L 10/25/16 07:00 Intake & Output 10/24/16 10/25/16 10/25/16 18:59 06:59 18:59 Intake Total 240 950 Output Total 1250 300 Balance -1010 650 Intake: Intake, IV Titration 950 Amount Ceftaroline Fosamil 600 250 mg In Sodium Chloride 0.9 % 250 ml @ 250 mls/hr IVPB Q12HR [facility] Rx#: [id number] Sodium Chloride 0.9% 1, 700 000 ml @ 100 mls/hr IV . Q10H [facility] Rx#:[id number] Oral 240 Output: Urine 1250 300 Other: Voiding Method Toilet Toilet Toilet Urinal Urinal Urinal # Bowel Movements 1 - Exam Physical exam 41-year-old male sitting up on the edge of the bed at the bedside to discuss discharge plan dependency case manager pursuing subacute rehab Lungs essentially clear adequate air movement on room air no shortness of breath noted Heart S1-S2 audible and regular denying chest pain Abdomen obese soft nontender reports of nausea vomiting reports of difficulty in urinating no frequent stooling Extremities upper extremities unremarkable the right lower extremity chronic venous stasis noted dressing to the left foot dry. Jarocho wraps bilateral lower extremities in place - Labs CBC & Chem 7: 10/25/16 07:42 10/25/16 07:42 Labs: Abnormal Lab Results - Last 24 Hours (Table) 10/24/16 10/24/16 10/24/16 Range/Units 11:23 17:35 20:04 WBC (3.8-10.6) k/uL RBC (4.30-5.90) m/uL Hgb (13.0-17.5) gm/dL Hct (39.0-53.0) % Neutrophils # (1.3-7.7) k/uL Creatinine (0.66-1.25) mg/dL POC Glucose (mg/dL) 140 H 154 H 175 H (75-99) mg/dL Calcium (8.4-10.2) mg/dL Albumin (3.5-5.0) g/dL 10/25/16 10/25/16 10/25/16 Range/Units 07:42 07:42 10:17 WBC 11.9 H (3.8-10.6) k/uL RBC 3.93 L (4.30-5.90) m/uL Hgb 10.7 L (13.0-17.5) gm/dL Hct 32.2 L (39.0-53.0) % Neutrophils # 9.2 H (1.3-7.7) k/uL Creatinine 0.61 L (0.66-1.25) mg/dL POC Glucose (mg/dL) 104 H (75-99) mg/dL Calcium 7.9 L (8.4-10.2) mg/dL Albumin 2.7 L (3.5-5.0) g/dL Microbiology - Last 24 Hours (Table) 10/18/16 17:27 Blood Culture - Final Blood No Growth after 144 hours 10/18/16 17:03 Blood Culture - Final Blood No Growth after 144 hours Assessment and Plan Plan: Impression Present on admission increased swelling left foot suspect due to diabetic ulcer of the left foot associated with diabetes mellitus due to underlying condition Diabetes insulin requiring uncontrolled hemoglobin A1c 8 Morbid obesity BMI 43 Present on admission febrile tachycardic leukocytosis sepsis suspect due to diabetic ulcer left foot plantar side significant foul-smelling likely polymicrobial infection with positive wound cultures finalized with group C streptococcus also showing in the blood Peripheral sensory neuropathy due to type 2 diabetes mellitus Leukocytosis persist Debilitated with limited mobility nonweightbearing left foot due to the diabetic ulcer Diabetic ulcer of left foot associated with diabetes mellitus due to underlying condition Arterial Doppler studies normal done on October 25 Plan Patient is scheduled today for left second toe amputation by Dr. Morales Continue medications by infectious disease current IV antibiotic teflaro every 12 hours Follow-up in [facility] care gore with Dr. Morales once discharged Further wound care recommendations after surgical procedure today Continue with nonweightbearing left foot Monitor blood sugars address as indicated DVT and GI prophylaxis The above impression and plan of care have been discussed and directed by signing physician. Tamica Mckeon nurse practitioner acting as scribe for signing physician.
[2016-10-25 12:06] LABS: Glucose,Whole Blood 102 mg/dL (75-99)
[2016-10-25 13:07] LABS: Glucose,Whole Blood 109 mg/dL (75-99)
[2016-10-25] MEDS ORDERED: IV FLUID CONTINUATION 1,000 ML IV ONE (13:07)
[2016-10-25] MEDS ORDERED: MIDAZOLAM 2 MG/2 ML VIAL ONE (13:39)
[2016-10-25] MEDS ORDERED: KETAMINE 10 MG/ML 20 ML VIAL ONE (13:39)
[2016-10-25] MEDS ORDERED: GLYCOPYRROLATE 0.2 MG/ML 2 ML VIAL ONE (13:39)
[2016-10-25] MEDS ORDERED: fentaNYL (PF) 50 MCG/ML 2 ML AMP ONE (13:39)
[2016-10-25] MEDS ORDERED: PROPOFOL 10 MG/ML 20 ML VIAL IV ONE (13:39)
[2016-10-25 14:27] LABS: Glucose,Whole Blood 100 mg/dL (75-99)
--- NOTE | 2016-10-25 15:09 | P.PCN ---
Date of Procedure: 10/25/16 Preoperative Diagnosis: Diabetic infection left foot Postoperative Diagnosis: Same, Stanford grade 3 with involvement of the left second toe Procedure(s) Performed: Amputation left second toe through metatarsal and debridement of the left foot Implants: Anesthesia: MAC Surgeon: Erwin Morales Estimated Blood Loss (ml): 50 Pathology: other (Disposal) Condition: stable Disposition: PACU Indications for Procedure: The patient had developed necrotic changes of the left second toe following debridement of the localized area of necrotic ulceration on the plantar aspect. Operative Findings: On exploration after removal of the necrotic second toe we found a small tract that went between this area and the plantar area previously debrided. Description of Procedure: With the patient in supine position, under benefit of IV sedation, we prepped and draped in sterile fashion. We made an elliptical incision around the second toe and incise directly down to the metatarsal bone. We divided this with bone cutters. We then took it about a centimeter into the soft tissue using rongeur. We then located the rather subtle fistulous tract. We opened to the previous debridement site. We then excised any nonviable looking tissue down to healthy bloody tissue throughout. Hemostasis was accomplished with electrocautery. The wound was packed and Jarocho wrap applied sterilely. The patient tolerated the procedure well.
[2016-10-25] MEDS: LISINOPRIL 20 MG TAB PO SCH (15:18)
--- NOTE | 2016-10-25 15:41 | P.PN ---
Subjective Principal diagnosis: Left diabetic foot infection Patient is a 41-year-old male admitted hospital with significant left diabetic foot infection with infected blister on the plantar aspect of his left foot, the patient did have debridement of the blister and scheduled for possible amputation of the left second toe debridement of the wound this morning by , the patient denies significant pain to the left foot the patient denies significant chest pain shortness of cough no abdominal pain though , diarrhea has improved compared to yesterday Objective - Vital Signs Vital signs: Vital Signs Temp 97.4 F L 10/25/16 07:00 Pulse 90 10/25/16 07:00 Resp 20 10/25/16 07:00 BP 158/87 10/25/16 07:00 Pulse Ox 94 L 10/25/16 07:00 Intake & Output 10/24/16 10/25/16 10/25/16 18:59 06:59 18:59 Intake Total 240 950 Output Total 1250 300 Balance -1010 650 Intake: Intake, IV Titration 950 Amount Ceftaroline Fosamil 600 250 mg In Sodium Chloride 0.9 % 250 ml @ 250 mls/hr IVPB Q12HR [facility] Rx#: [id number] Sodium Chloride 0.9% 1, 700 000 ml @ 100 mls/hr IV . Q10H [facility] Rx#:[id number] Oral 240 Output: Urine 1250 300 Other: Voiding Method Toilet Toilet Toilet Urinal Urinal Urinal # Bowel Movements 1 - Exam Middle-aged male up in the bed in no distress Respiratory system: Unlabored breathing and is clear to auscultation Heart : S1,S2 RRR Abdomen: Soft no tenderness extremities: Left foot wound is currently dressed with no drainage on the dressing - Labs CBC & Chem 7: 10/25/16 07:42 10/25/16 07:42 Labs: Abnormal Lab Results - Last 24 Hours (Table) 10/24/16 10/24/16 10/24/16 Range/Units 11:23 17:35 20:04 WBC (3.8-10.6) k/uL RBC (4.30-5.90) m/uL Hgb (13.0-17.5) gm/dL Hct (39.0-53.0) % Neutrophils # (1.3-7.7) k/uL Creatinine (0.66-1.25) mg/dL POC Glucose (mg/dL) 140 H 154 H 175 H (75-99) mg/dL Calcium (8.4-10.2) mg/dL Albumin (3.5-5.0) g/dL 10/25/16 10/25/16 10/25/16 Range/Units 07:42 07:42 10:17 WBC 11.9 H (3.8-10.6) k/uL RBC 3.93 L (4.30-5.90) m/uL Hgb 10.7 L (13.0-17.5) gm/dL Hct 32.2 L (39.0-53.0) % Neutrophils # 9.2 H (1.3-7.7) k/uL Creatinine 0.61 L (0.66-1.25) mg/dL POC Glucose (mg/dL) 104 H (75-99) mg/dL Calcium 7.9 L (8.4-10.2) mg/dL Albumin 2.7 L (3.5-5.0) g/dL Microbiology - Last 24 Hours (Table) 10/18/16 17:27 Blood Culture - Final Blood No Growth after 144 hours 10/18/16 17:03 Blood Culture - Final Blood No Growth after 144 hours Assessment and Plan (1) Diabetic ulcer of left foot associated with diabetes mellitus due to underlying condition Status: Acute (2) Sepsis Status: Acute Plan: 1- patient with left diabetic foot infection, wound culture has been finalized with group C streptococcus also group C Streptococcus is growing in the blood, he did have multiple pathogen growing from initial cultures done at the bedside with question of possible contamination. 2-plan at this time is to continue antibiotic in the form of Rocephin 2 g daily , vancomycin pharmacy to dose along with oral Flagyl 3-await further debridement and possible amputation of the toe per vascular surgery Time with Patient: Less than 30
[2016-10-25] MEDS ORDERED: IV VANCOMYCIN PER PHARMACY 1 EACH MISC MISCELLANE PRN (15:42)
[2016-10-25] MEDS ORDERED: VANCOMYCIN 2,000 MG in SODIUM CHLORIDE 0.9% 500 ML IVPB SCH (16:00)
[2016-10-25] MEDS: cefTRIAXone 2,000 MG in SODIUM CHLORIDE 0.9% 100 ML IVPB SCH (16:21)
[2016-10-25 17:27] LABS: Glucose,Whole Blood 109 mg/dL (75-99)
[2016-10-25] MEDS: VANCOMYCIN 2,250 MG in SODIUM CHLORIDE 0.9% 500 ML IVPB SCH (18:11)
[2016-10-25 20:46] LABS: Glucose,Whole Blood 183 mg/dL (75-99)
[2016-10-25] MEDS: INSULIN GLARGINE 100 UNIT/ML 10 ML VIAL SQ SCH (21:33)
[2016-10-25] MEDS: FAMOTIDINE 20 MG TAB PO SCH (22:02)
[2016-10-25] MEDS: HYDROcodone/APAP 5-325MG 1 EACH TAB PO PRN (22:02)
[2016-10-26] MEDS: VANCOMYCIN 2,250 MG in SODIUM CHLORIDE 0.9% 500 ML IVPB SCH ×3 (00:39→16:44)
[2016-10-26] MEDS: HEPARIN SODIUM,PORCINE 5,000 UNIT/ML 1 ML VIAL SQ SCH ×3 (00:39→16:45)
[2016-10-26 06:13] LABS: Basophils # (A) 0.1 k/uL (0-0.2); Basophils % (A) 1 %; CHCM 32.1; Eosinophils # (A) 0.4 k/uL (0-0.7); Eosinophils % (A) 3 %; HCT 32.3 % (39.0-53.0); HDW 3.55; Hypochromasia Slight; Luc # (Auto) 0.14; Luc % (Auto) 1; Lymphocytes # (A) 1.9 k/uL (1.0-4.8); Lymphocytes % (A) 17 %; MCH 27.7 pg (25.0-35.0); MCHC 34.1 g/dL (31.0-37.0); MCV 81.4 fL (80.0-100.0); Mean Platelet Volume 6.6; Monocytes # (A) 0.5 k/uL (0-1.0); Monocytes % (A) 4 %; Neutrophils # (A) 8.1 k/uL (1.3-7.7); Neutrophils % (A) 74 %; Poikilocytosis Slight; RBC 3.97 m/uL (4.30-5.90); WBC (Perox) 10.49
[2016-10-26 06:37] LABS: ALT 38 U/L (21-72); AST 28 U/L (17-59); Alkaline Phosphatase 49 U/L (38-126); Anion Gap 6 mmol/L; Blood Urea Nitrogen 10 mg/dL (9-20); Calcium 8.2 mg/dL (8.4-10.2); Carbon Dioxide 28 mmol/L (22-30); Chloride 105 mmol/L (98-107); Glucose 131 mg/dL (74-99); Non-African American GFR(MDRD) >60 (>60 ml/min/1.73 sqM); Potassium 4.3 mmol/L (3.5-5.1); Sodium 139 mmol/L (137-145); Total Bilirubin 0.5 mg/dL (0.2-1.3); Total Protein 6.4 g/dL (6.3-8.2)
[2016-10-26 07:10] LABS: Glucose,Whole Blood 118 mg/dL (75-99)
[2016-10-26] MEDS: INSULIN LISPRO (humaLOG) 300 UNIT/3 ML VIAL SQ SCH ×6 (07:19→21:04)
[2016-10-26] MEDS: SODIUM CHLORIDE 0.9% 1,000 ML IV SCH ×3 (08:13→15:57)
[2016-10-26] MEDS: metFORMIN 500 MG TAB PO SCH ×2 (08:15→21:05)
[2016-10-26] MEDS: LISINOPRIL 20 MG TAB PO SCH (08:15)
[2016-10-26] MEDS: metroNIDAZOLE 500 MG TAB PO SCH ×3 (08:15→21:05)
[2016-10-26] MEDS: cefTRIAXone 2,000 MG in SODIUM CHLORIDE 0.9% 100 ML IVPB SCH (11:40)
--- NOTE | 2016-10-26 11:55 | P.PN ---
Subjective Principal diagnosis: Diabetic infection left foot POD #7 surgical debridement of left foot ulcer. Diabetic infection left foot, Stanford grade 3 with involvement of the left second toe POD #1 amputation left second toe through metatarsal and debridement of the left foot Patient currently laying in bed with bilateral lower extremities elevated. States he has no pain. Voices numerous questions regarding pending treatment plans and discharge plans. Objective - Vital Signs Vital signs: Vital Signs Temp 98.2 F 10/26/16 07:00 Pulse 95 10/26/16 07:00 Resp 16 10/26/16 07:00 BP 157/98 10/26/16 07:00 Pulse Ox 93 L 10/26/16 07:00 Intake & Output 10/25/16 10/26/16 10/26/16 18:59 06:59 18:59 Intake Total 275 1650 Output Total 1950 1550 Balance -1675 100 Intake: IV 275 Intake, IV Titration 1200 Amount Vancomycin 2,250 mg In 1000 Sodium Chloride 0.9% 500 ml @ 167 mls/hr IVPB Q8HR [facility] Rx#:[id number] cefTRIAXone 2,000 mg In 200 Sodium Chloride 0.9% 100 ml @ 100 mls/hr IVPB Q24HR [facility] Rx#:[id number] Oral 450 Output: Urine 1900 1550 Estimated Blood Loss 50 Other: Voiding Method Toilet Toilet Urinal Urinal # Voids 1 1 - Constitutional General appearance: Present: cooperative, no acute distress, obese - Respiratory Details: Lungs sounds diminished bilaterally. Respirations even, nonlabored. Currently on room air with oxygen saturation 97%. - Cardiovascular Details: S1, S2 present. Regular rate and rhythm. Bilateral lower extremity edema present. - Gastrointestinal Gastrointestinal Comment(s): Abdomen soft, nontender, nondistended, obese. Active bowel sounds 4 quadrants. Tolerating diet. - Genitourinary Genitourinary Comment(s): Continues to void clear, yellow urine. - Integumentary Integumentary Comment(s): Left foot dressing changed. Significant using present manual pressure held for 15 minutes. Otherwise wound looks clean. Re-packed, rewrapped with Jarocho wrap toes to the knees. - Musculoskeletal Musculoskeletal: Present: strength equal bilaterally - Psychiatric Psychiatric: Present: A&O x's 3 - Allied health notes Allied health notes reviewed: nursing - Labs CBC & Chem 7: 10/26/16 06:03 10/26/16 06:03 Labs: Abnormal Lab Results - Last 24 Hours (Table) 10/25/16 10/25/16 10/25/16 Range/Units 12:04 13:05 14:24 WBC (3.8-10.6) k/uL RBC (4.30-5.90) m/uL Hgb (13.0-17.5) gm/dL Hct (39.0-53.0) % Neutrophils # (1.3-7.7) k/uL Creatinine (0.66-1.25) mg/dL Glucose (74-99) mg/dL POC Glucose (mg/dL) 102 H 109 H 100 H (75-99) mg/dL Calcium (8.4-10.2) mg/dL Albumin (3.5-5.0) g/dL 10/25/16 10/25/16 10/26/16 Range/Units 17:25 20:16 06:03 WBC (3.8-10.6) k/uL RBC (4.30-5.90) m/uL Hgb (13.0-17.5) gm/dL Hct (39.0-53.0) % Neutrophils # (1.3-7.7) k/uL Creatinine 0.65 L (0.66-1.25) mg/dL Glucose 131 H (74-99) mg/dL POC Glucose (mg/dL) 109 H 183 H (75-99) mg/dL Calcium 8.2 L (8.4-10.2) mg/dL Albumin 2.8 L (3.5-5.0) g/dL 10/26/16 10/26/16 Range/Units 06:03 07:08 WBC 11.0 H (3.8-10.6) k/uL RBC 3.97 L (4.30-5.90) m/uL Hgb 11.0 L (13.0-17.5) gm/dL Hct 32.3 L (39.0-53.0) % Neutrophils # 8.1 H (1.3-7.7) k/uL Creatinine (0.66-1.25) mg/dL Glucose (74-99) mg/dL POC Glucose (mg/dL) 118 H (75-99) mg/dL Calcium (8.4-10.2) mg/dL Albumin (3.5-5.0) g/dL Assessment and Plan (1) Type 2 diabetes mellitus Status: Acute (2) Morbid obesity with BMI of 40.0-44.9, adult Status: Acute (3) Diabetic ulcer of left foot associated with diabetes mellitus due to underlying condition Status: Acute (4) 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 Left foot dressing changed, rewrapped. Will change dressing again tomorrow. 2. Antibiotics per infectious disease recommendations. 3. Reinforced again with patient that he is to refrain from putting any weight on his left foot. Should he choose to disregard this warning he does run the risk of needing further amputation. Physical therapy following. Also reinforced that when he is sitting, patient should have both legs elevated higher than the level of his heart to reduce edema. 4. Medical management per primary care service. 5. Upon discharge patient is to follow with Dr. Morales in the wound care center. 6. Discharge planning in process. Time with Patient: Greater than 30
[2016-10-26 12:00] LABS: Glucose,Whole Blood 127 mg/dL (75-99)
[2016-10-26] MEDS: HYDROcodone/APAP 5-325MG 1 EACH TAB PO PRN (14:51)
[2016-10-26 17:00] LABS: Glucose,Whole Blood 131 mg/dL (75-99)
[2016-10-26 20:47] LABS: Glucose,Whole Blood 156 mg/dL (75-99)
[2016-10-26] MEDS: FAMOTIDINE 20 MG TAB PO SCH (21:05)
[2016-10-26] MEDS: INSULIN GLARGINE 100 UNIT/ML 10 ML VIAL SQ SCH (21:06)
--- NOTE | 2016-10-26 22:27 | P.PN ---
Subjective Principal diagnosis: cellulitis/amputation 2nd toe rt foot Objective - Vital Signs Vital signs: Vital Signs Temp 97.1 F L 10/26/16 15:35 Pulse 99 10/26/16 15:39 Resp 16 10/26/16 22:18 BP 155/104 10/26/16 15:35 Pulse Ox 95 10/26/16 15:35 Intake & Output 10/26/16 10/26/16 10/27/16 06:59 18:59 06:59 Intake Total 1650 1580 500 Output Total 1550 1625 210 Balance 100 -45 290 Intake: Intake, IV Titration 1200 780 500 Amount Sodium Chloride 0.9% 1, 180 000 ml @ 100 mls/hr IV . Q10H [facility] Rx#:[id number] Vancomycin 2,250 mg In 1000 500 500 Sodium Chloride 0.9% 500 ml @ 167 mls/hr IVPB Q8HR [facility] Rx#:[id number] cefTRIAXone 2,000 mg In 200 100 Sodium Chloride 0.9% 100 ml @ 100 mls/hr IVPB Q24HR [facility] Rx#:[id number] Oral 450 800 Output: Urine 1550 1625 210 Other: Voiding Method Toilet Urinal Toilet Urinal Urinal # Voids 1 1 # Bowel Movements 1 - Constitutional General appearance: Present: obese - EENT Eyes: Present: anicteric sclerae ENT: Present: hearing grossly normal - Neck Neck: Present: normal ROM Thyroid: bilateral: normal size - Respiratory Respiratory: bilateral: CTA - Cardiovascular Rhythm: regular Heart sounds: normal: S1, S2 - Integumentary Integumentary: Present: cellulitis - Labs CBC & Chem 7: 10/26/16 06:03 10/26/16 06:03 Labs: Abnormal Lab Results - Last 24 Hours (Table) 10/26/16 10/26/16 10/26/16 Range/Units 06:03 06:03 07:08 WBC 11.0 H (3.8-10.6) k/uL RBC 3.97 L (4.30-5.90) m/uL Hgb 11.0 L (13.0-17.5) gm/dL Hct 32.3 L (39.0-53.0) % Neutrophils # 8.1 H (1.3-7.7) k/uL Creatinine 0.65 L (0.66-1.25) mg/dL Glucose 131 H (74-99) mg/dL POC Glucose (mg/dL) 118 H (75-99) mg/dL Calcium 8.2 L (8.4-10.2) mg/dL Albumin 2.8 L (3.5-5.0) g/dL 10/26/16 10/26/16 10/26/16 Range/Units 11:56 16:58 20:37 WBC (3.8-10.6) k/uL RBC (4.30-5.90) m/uL Hgb (13.0-17.5) gm/dL Hct (39.0-53.0) % Neutrophils # (1.3-7.7) k/uL Creatinine (0.66-1.25) mg/dL Glucose (74-99) mg/dL POC Glucose (mg/dL) 127 H 131 H 156 H (75-99) mg/dL Calcium (8.4-10.2) mg/dL Albumin (3.5-5.0) g/dL Assessment and Plan Time with Patient: Less than 30
[2016-10-26] MEDS ORDERED: VANCOMYCIN TROUGH DUE 1 EACH MISC MISCELLANE ONE (23:00)
--- NOTE | 2016-10-26 23:12 | P.PN ---
Subjective Principal diagnosis: Left diabetic foot infection Patient is a 41-year-old male admitted hospital with significant left diabetic foot infection with infected blister on the plantar aspect of his left foot, the patient did have debridement of the blister initially and did have amputation of the left second toe and debridement of the wound by yesterday which the pt has tolerated, the patient denies significant pain to the left foot, did have some bleeding at time of dressing changes this am, the patient denies significant chest pain shortness of cough no abdominal pain though , diarrhea has improved Objective - Vital Signs Vital signs: Vital Signs Temp 98.2 F 10/26/16 07:00 Pulse 95 10/26/16 07:00 Resp 16 10/26/16 07:00 BP 157/98 10/26/16 07:00 Pulse Ox 93 L 10/26/16 07:00 Intake & Output 10/25/16 10/26/16 10/26/16 18:59 06:59 18:59 Intake Total 275 1650 Output Total 1950 1550 Balance -1675 100 Intake: IV 275 Intake, IV Titration 1200 Amount Vancomycin 2,250 mg In 1000 Sodium Chloride 0.9% 500 ml @ 167 mls/hr IVPB Q8HR [facility] Rx#:[id number] cefTRIAXone 2,000 mg In 200 Sodium Chloride 0.9% 100 ml @ 100 mls/hr IVPB Q24HR [facility] Rx#:[id number] Oral 450 Output: Urine 1900 1550 Estimated Blood Loss 50 Other: Voiding Method Toilet Toilet Urinal Urinal Urinal # Voids 1 1 - Exam Middle-aged male up in the bed in no distress Respiratory system: Unlabored breathing and is clear to auscultation Heart : S1,S2 RRR Abdomen: Soft no tenderness extremities: Left foot wound is currently dressed with mild blood stained drainage on the dressing - Labs CBC & Chem 7: 10/26/16 06:03 10/26/16 06:03 Labs: Abnormal Lab Results - Last 24 Hours (Table) 10/25/16 10/25/16 10/25/16 Range/Units 13:05 14:24 17:25 WBC (3.8-10.6) k/uL RBC (4.30-5.90) m/uL Hgb (13.0-17.5) gm/dL Hct (39.0-53.0) % Neutrophils # (1.3-7.7) k/uL Creatinine (0.66-1.25) mg/dL Glucose (74-99) mg/dL POC Glucose (mg/dL) 109 H 100 H 109 H (75-99) mg/dL Calcium (8.4-10.2) mg/dL Albumin (3.5-5.0) g/dL 10/25/16 10/26/16 10/26/16 Range/Units 20:16 06:03 06:03 WBC 11.0 H (3.8-10.6) k/uL RBC 3.97 L (4.30-5.90) m/uL Hgb 11.0 L (13.0-17.5) gm/dL Hct 32.3 L (39.0-53.0) % Neutrophils # 8.1 H (1.3-7.7) k/uL Creatinine 0.65 L (0.66-1.25) mg/dL Glucose 131 H (74-99) mg/dL POC Glucose (mg/dL) 183 H (75-99) mg/dL Calcium 8.2 L (8.4-10.2) mg/dL Albumin 2.8 L (3.5-5.0) g/dL 10/26/16 10/26/16 Range/Units 07:08 11:56 WBC (3.8-10.6) k/uL RBC (4.30-5.90) m/uL Hgb (13.0-17.5) gm/dL Hct (39.0-53.0) % Neutrophils # (1.3-7.7) k/uL Creatinine (0.66-1.25) mg/dL Glucose (74-99) mg/dL POC Glucose (mg/dL) 118 H 127 H (75-99) mg/dL Calcium (8.4-10.2) mg/dL Albumin (3.5-5.0) g/dL Assessment and Plan (1) Diabetic ulcer of left foot associated with diabetes mellitus due to underlying condition Status: Acute (2) Sepsis Status: Acute Plan: 1- patient with left diabetic foot infection, wound culture group C streptococcus also group C Streptococcus in the blood, he did have multiple pathogen growing from initial cultures done at the bedside with question of possible contamination. 2-pt to continue antibiotic in the form of Rocephin 2 g daily, vancomycin pharmacy to dose along with oral Flagyl and continue local wound care per surgery. Time with Patient: Less than 30
[2016-10-27] MEDS: HEPARIN SODIUM,PORCINE 5,000 UNIT/ML 1 ML VIAL SQ SCH ×3 (00:37→15:27)
[2016-10-27] MEDS: VANCOMYCIN 2,250 MG in SODIUM CHLORIDE 0.9% 500 ML IVPB SCH ×2 (00:37→07:52)
[2016-10-27 06:54] LABS: Basophils % (A) 1 %; CH 26.1; CHCM 31.4; Eosinophils # (A) 0.3 k/uL (0-0.7); Eosinophils % (A) 3 %; HCT 34.8 % (39.0-53.0); HDW 3.48; HGB 11.2 gm/dL (13.0-17.5); Hypochromasia Moderate; Luc # (Auto) 0.14; Luc % (Auto) 2; Lymphocytes # (A) 1.9 k/uL (1.0-4.8); Lymphocytes % (A) 22 %; MCHC 32.3 g/dL (31.0-37.0); MCV 83.4 fL (80.0-100.0); Mean Platelet Volume 6.6; Monocytes # (A) 0.4 k/uL (0-1.0); Monocytes % (A) 5 %; Neutrophils # (A) 5.8 k/uL (1.3-7.7); Neutrophils % (A) 68 %; Poikilocytosis Slight; RBC 4.17 m/uL (4.30-5.90); RDW 14.1 % (11.5-15.5); WBC 8.6 k/uL (3.8-10.6); WBC (Perox) 8.91
[2016-10-27 06:55] LABS: ALT 43 U/L (21-72); AST 30 U/L (17-59); Alkaline Phosphatase 48 U/L (38-126); Anion Gap 6 mmol/L; Blood Urea Nitrogen 11 mg/dL (9-20); Calcium 8.3 mg/dL (8.4-10.2); Carbon Dioxide 29 mmol/L (22-30); Chloride 104 mmol/L (98-107); Glucose 114 mg/dL (74-99); Non-African American GFR(MDRD) >60 (>60 ml/min/1.73 sqM); Potassium 4.2 mmol/L (3.5-5.1); Sodium 139 mmol/L (137-145); Total Bilirubin 0.4 mg/dL (0.2-1.3); Total Protein 6.5 g/dL (6.3-8.2)
[2016-10-27 07:23] LABS: Glucose,Whole Blood 101 mg/dL (75-99)
[2016-10-27] MEDS: INSULIN LISPRO (humaLOG) 300 UNIT/3 ML VIAL SQ SCH ×3 (07:23→12:15)
[2016-10-27] MEDS: SODIUM CHLORIDE 0.9% 1,000 ML IV SCH ×2 (07:24→10:51)
[2016-10-27] MEDS: metFORMIN 500 MG TAB PO SCH (07:52)
[2016-10-27] MEDS: metroNIDAZOLE 500 MG TAB PO SCH ×2 (07:52→15:27)
[2016-10-27] MEDS: LISINOPRIL 20 MG TAB PO SCH (07:52)
[2016-10-27] MEDS: cefTRIAXone 2,000 MG in SODIUM CHLORIDE 0.9% 100 ML IVPB SCH (10:51)
[2016-10-27 11:57] LABS: Glucose,Whole Blood 116 mg/dL (75-99)
--- NOTE | 2016-10-27 12:31 | P.PN ---
Subjective Principal diagnosis: Diabetic infection left foot POD #8 surgical debridement of left foot ulcer. Diabetic infection left foot, Stanford grade 3 with involvement of the left second toe POD #2 amputation left second toe through metatarsal and debridement of the left foot Patient currently sitting up to the side of the pad with his feet on the floor. He reports that he has been nonweightbearing to his left foot as instructed. Denies complaints of pain. Questions answered regarding wound care treatment, wound VAC will be reapplied today. Objective - Vital Signs Vital signs: Vital Signs Temp 97.9 F 10/27/16 07:44 Pulse 95 10/27/16 07:44 Resp 18 10/27/16 08:00 BP 160/81 10/27/16 07:44 Pulse Ox 94 L 10/27/16 07:44 Intake & Output 10/26/16 10/27/16 10/27/16 18:59 06:59 18:59 Intake Total 1580 500 Output Total 1625 810 Balance -45 -310 Intake: Intake, IV Titration 780 500 Amount Sodium Chloride 0.9% 1, 180 000 ml @ 100 mls/hr IV . Q10H [facility]OS[facility] Rx#:[id number] Vancomycin 2,250 mg In 500 500 Sodium Chloride 0.9% 500 ml @ 167 mls/hr IVPB Q8HR [facility]OS[facility] Rx#:[id number] cefTRIAXone 2,000 mg In 100 Sodium Chloride 0.9% 100 ml @ 100 mls/hr IVPB Q24HR [facility]OS[facility] Rx#:[id number] Oral 800 Output: Urine 1625 810 Other: Voiding Method Urinal Toilet Toilet Urinal Urinal # Voids 1 # Bowel Movements 1 - Constitutional General appearance: Present: cooperative, morbidly obese, no acute distress - EENT ENT: Present: hearing grossly normal - Respiratory Details: Respirations are symmetrical and unlabored. He is current oxygen saturation is 93% on room air. Respiratory: bilateral: CTA - Cardiovascular Details: +1 edema to his bilateral lower extremities. Jarocho wraps from place from his toes to his bilateral knees. Heart rate: 95 Rhythm: regular Heart sounds: normal: S1, S2 - Peripheral edema leg Peripheral Edema: bilateral: 1+ foot Peripheral Edema: bilateral: 1+ ankle Peripheral Edema: bilateral: 1+ - Gastrointestinal Gastrointestinal Comment(s): His abdomen is soft, nondistended and nontender. Positive bowel sounds in all 4 quadrants. Positive bowel movement yesterday 10/26/2016. He is tolerating his diet. - Genitourinary Genitourinary Comment(s): He is getting up to the bathroom with minimal assistance, voiding clear yellow urine. - Integumentary Integumentary Comment(s): Left foot dressing removed and wound appears clean with scant serosanguineous drainage. Wound VAC dressing applied with settings at continuous, 125 mmHg, with medium intensity. Jarocho wraps are in place from his toes to his knees bilaterally. Wound depth is 3 cm, with is 2 cm. - Neurologic Neurologic: Present: CNII-XII intact - Musculoskeletal Musculoskeletal Comment(s): The patient is nonweightbearing to his left foot, is working with occupational and physical therapy. Musculoskeletal: Present: strength equal bilaterally - Psychiatric Psychiatric: Present: A&O x's 3, appropriate affect - Allied health notes Allied health notes reviewed: nursing - Labs CBC & Chem 7: 10/27/16 06:19 10/27/16 06:19 Labs: Abnormal Lab Results - Last 24 Hours (Table) 10/26/16 10/26/16 10/27/16 Range/Units 16:58 20:37 06:19 RBC (4.30-5.90) m/uL Hgb (13.0-17.5) gm/dL Hct (39.0-53.0) % Glucose 114 H (74-99) mg/dL POC Glucose (mg/dL) 131 H 156 H (75-99) mg/dL Calcium 8.3 L (8.4-10.2) mg/dL Albumin 3.0 L (3.5-5.0) g/dL 10/27/16 10/27/16 10/27/16 Range/Units 06:19 07:22 11:56 RBC 4.17 L (4.30-5.90) m/uL Hgb 11.2 L (13.0-17.5) gm/dL Hct 34.8 L (39.0-53.0) % Glucose (74-99) mg/dL POC Glucose (mg/dL) 101 H 116 H (75-99) mg/dL Calcium (8.4-10.2) mg/dL Albumin (3.5-5.0) g/dL Assessment and Plan Plan: 1. Left foot wound VAC dressing applied, rewrapped legs from toes to knees with Jarocho wraps bilateral. He is to follow-up in the wound healing center next Sunday with Dr. Morales.. 2. Antibiotics per infectious disease recommendations. 3. Reinforced again with patient that he is to refrain from putting any weight on his left foot. Should he choose to disregard this warning he does run the risk of needing further amputation. Physical therapy and occupational therapy following. Also reinforced that when he is sitting up eating or using the restroom, he should have both legs elevated higher than the level of his heart to reduce edema to his lower legs. 4. Medical management per primary care service. 5. Discharge planning in process. The plan is for the patient to be discharged to [facility] on the [place] upon discharge, per the case management notes. Time with Patient: Greater than 30
[2016-10-27 15:32] VITALS: BP 143/75; PULSE 105; RESP 16; TEMP 98.6
--- NOTE | 2016-10-27 15:43 | DS ---
DATE OF SERVICE: 10/27/2016 HOSPITAL COURSE: Patient is a 41-year-old male who came in with cellulitis and diabetic foot ulcer of the left foot. Patient underwent an amputation of the second toe on that left foot and is seen today sitting up at the bedside, awake, alert, eager to go to rehab to get stronger and return home. The patient is hemodynamically stable, afebrile. No acute distress. On physical exam, vital signs show temperature 97.9, heart rate 95. Respiratory rate is 18, blood pressure 160/81, oxygen saturation 94% on room air. HEENT: Head is normocephalic, atraumatic. Neck is supple. Trachea is midline. LUNGS: Decreased to the bilateral bases posteriorly. HEART: S1 and S2 are heard. Not tachycardic. Abdomen is soft, obese. Bowel sounds are positive. EXTREMITIES: Three plus edema bilaterally. Patient does have Jarocho wraps to the bilateral lower extremities up the knees. NEUROLOGIC: Patient is awake and alert. Patient does have a history of a closed head injury. LABS: White count is 8.6, hemoglobin 11.2, hematocrit 34.8 and 353,000 platelets. Sodium is 139, potassium 4.2, chloride 104. CO2 is 29. Anion gap is 6. BUN 11, creatinine 0.67. Glucose 114. Calcium 8.3. Total bilirubin 0.4, AST 30, ALT 43, alkaline phosphatase 48. Total protein 6.5. Albumin 3.0. No new imaging to review. The patient's discharge medications include: 1. Metformin 500 mg p.o. b.i.d. 2. Humalog 2 units before meals twice a day. 3. Lantus 40 units subcutaneously at bedtime. 4. Flagyl 500 mg p.o. t.i.d. 5. Rocephin 2 grams IV q.24 hours. 6. Motrin 400 mg p.o. q.4 hours p.r.n. pain. 7. Pepcid 20 mg p.o. daily. FINAL DIAGNOSES: 1. Diabetic foot ulcer of the left foot, status post amputation of the second toe. 2. Medical debility. PLAN: Patient to transfer to rehab at [facility] and is to follow up with Dr. Ruth when he is discharged from rehab. Patient's condition at time of discharge is stable. MTDD
[2016-10-27] MEDS ORDERED: VANCOMYCIN 2,000 MG in SODIUM CHLORIDE 0.9% 500 ML IVPB SCH (16:00)
--- NOTE | 2016-10-28 11:04 | PN ---
DATE OF SERVICE: 10/27/2016 Patient is a 41-year-old male who is seen sitting up at the bedside, is awake, alert, comfortable at this time, denies any shortness of breath, denies any pain , is hemodynamically stable. Blood pressure is trending a bit high, afebrile, in no acute distress. On physical exam, temp is 97.9, heart rate is 95, respiratory rate is 18, blood pressure is 160/81, O2 is 94% on room air. HEENT: Head is normocephalic, atraumatic. Neck is supple, trachea is midline. Lungs with fair air entry, decreased at the bilateral bases. HEART: S1, S2 are head, not tachycardic. Abdomen is soft, bowel sounds are heard, obese. Extremities with Jarocho wraps bilaterally with 3+ edema noted. IMPRESSION: 1. Diabetic foot infection of the left foot. 2. Status post amputation of left second toe. 3. Diabetes mellitus. 4. Morbid obesity. 5. Peripheral sensory neuropathy. PLAN: Patient is to discharge to rehab for IV antibiotics when stable for discharge. Per Surgery, patient does have a PICC line. Will continue current medications which have been reviewed and follow patient closely, making further changes as necessary. GRACIE
[2016-10-28] MEDS ORDERED: VANCOMYCIN TROUGH DUE 1 EACH MISC MISCELLANE ONE (15:00)
--- NOTE | 2016-10-30 19:54 | P.PN ---
Subjective Principal diagnosis: Left diabetic foot infection Patient is a 41-year-old male admitted hospital with significant left diabetic foot infection with infected blister on the plantar aspect of his left foot, pt is s/p debridment of the left foot , fever pattern has improved, the patient denies significant chest pain shortness of breath or cough no abdominal pain and no diarrhea denies any worsening pain in his left foot Objective - Vital Signs Vital signs: Vital Signs Temp 99.4 F 10/19/16 08:21 Pulse 113 H 10/19/16 08:46 Resp 20 10/19/16 08:46 BP 117/54 10/19/16 08:21 Pulse Ox 91 L 10/19/16 08:21 Intake & Output 10/18/16 10/19/16 10/19/16 18:59 06:59 18:59 Intake Total 1000 1608 Output Total 400 Balance 1000 1208 Weight 141 kg 141 kg 141 kg Intake: Intake, IV Titration 1000 1298 Amount Aztreonam 2 gm In Sodium 100 Chloride 0.9% 100 ml @ 100 mls/hr IVPB Q8H JOS[facility] Rx#:[id number] Sodium Chloride 0.9% 1, 400 1298 000 ml @ 100 mls/hr IV . Q10H JOSH Rx#:[id number] Vancomycin 2,000 mg In 500 Sodium Chloride 0.9% 500 ml @ 167 mls/hr IVPB Q8H JOS[facility] Rx#:[id number] Oral 310 Output: Urine 400 Other: Voiding Method Toilet Toilet Urinal Urinal # Voids 1 2 1 # Bowel Movements 2 - Exam Middle-aged male up in the bed in no distress Respiratory system: Unlabored breathing and is clear to auscultation Heart : S1,S2 RRR Abdomen: Soft no tenderness extremities: Left foot is currently dressed up there is no specific and drainage on the dressing - Labs CBC & Chem 7: 10/27/16 06:19 10/27/16 06:19 Labs: Abnormal Lab Results - Last 24 Hours (Table) 10/18/16 10/18/16 10/18/16 Range/Units 11:29 17:09 20:04 Sodium (137-145) mmol/L BUN (9-20) mg/dL Creatinine (0.66-1.25) mg/dL Glucose (74-99) mg/dL POC Glucose (mg/dL) 215 H 208 H 229 H (75-99) mg/dL Calcium (8.4-10.2) mg/dL Total Protein (6.3-8.2) g/dL Albumin (3.5-5.0) g/dL 10/19/16 10/19/16 Range/Units 06:35 07:08 Sodium 134 L (137-145) mmol/L BUN 8 L (9-20) mg/dL Creatinine 0.57 L (0.66-1.25) mg/dL Glucose 168 H (74-99) mg/dL POC Glucose (mg/dL) 164 H (75-99) mg/dL Calcium 7.4 L (8.4-10.2) mg/dL Total Protein 5.9 L (6.3-8.2) g/dL Albumin 2.5 L (3.5-5.0) g/dL Microbiology - Last 24 Hours (Table) 10/16/16 23:00 Blood Culture - Final Blood 10/16/16 22:30 Blood Culture - Preliminary Blood No Growth after 48 hours 10/17/16 23:00 Blood Culture Gram Stain - Preliminary Blood Blood Culture - Preliminary Beta Hemolytic Strep Group C 10/17/16 16:00 Gram Stain - Preliminary Foot - Left Wound Culture - Preliminary Gram Neg Bacilli Beta Hemolytic Strep Group C 10/16/16 22:30 Gram Stain - Preliminary Foot - Left Wound Culture - Preliminary Beta Hemolytic Strep Group C Gram Neg Bacilli Assessment and Plan (1) Diabetic ulcer of left foot associated with diabetes mellitus due to underlying condition Status: Acute (2) Sepsis Status: Acute Plan: 1- patient with left diabetic foot infection, wound culture group C streptococcus also group C Streptococcus in the blood, he did have multiple pathogen growing from initial cultures done at the bedside with question of possible contamination. 2-pt to continue antibiotic in the form of Rocephin 2 g daily, vancomycin pharmacy to dose along with oral Flagyl and continue local wound care per surgery.
--- NOTE | 2016-10-30 19:57 | P.PN ---
Subjective Principal diagnosis: Left diabetic foot infection Patient was admitted hospital with significant left diabetic foot infection with infected blister on the plantar aspect of his left foot, pt is s/p debridment of the left foot followed by amputation of the 2nd toe , pt is afebrile , the patient denies significant chest pain shortness of breath or cough no abdominal pain and diarrhea has improved , denies any worsening pain in his left foot Objective - Vital Signs Vital signs: Vital Signs Temp 97.9 F 10/27/16 07:44 Pulse 95 10/27/16 07:44 Resp 18 10/27/16 08:00 BP 160/81 10/27/16 07:44 Pulse Ox 94 L 10/27/16 07:44 Intake & Output 10/26/16 10/27/16 10/27/16 18:59 06:59 18:59 Intake Total 1580 500 Output Total 1625 810 Balance -45 -310 Intake: Intake, IV Titration 780 500 Amount Sodium Chloride 0.9% 1, 180 000 ml @ 100 mls/hr IV . Q10H JOS[facility] Rx#:[id number] Vancomycin 2,250 mg In 500 500 Sodium Chloride 0.9% 500 ml @ 167 mls/hr IVPB Q8HR JOS[facility] Rx#:[id number] cefTRIAXone 2,000 mg In 100 Sodium Chloride 0.9% 100 ml @ 100 mls/hr IVPB Q24HR JOSH Rx#:[id number] Oral 800 Output: Urine 1625 810 Other: Voiding Method Urinal Toilet Toilet Urinal Urinal # Voids 1 # Bowel Movements 1 - Exam Middle-aged male up in the bed in no distress Respiratory system: Unlabored breathing and is clear to auscultation Heart : S1,S2 RRR Abdomen: Soft no tenderness extremities: Left foot is currently dressed with wound vac applied - Labs CBC & Chem 7: 10/27/16 06:19 10/27/16 06:19 Labs: Abnormal Lab Results - Last 24 Hours (Table) 10/26/16 10/26/16 10/27/16 Range/Units 16:58 20:37 06:19 RBC (4.30-5.90) m/uL Hgb (13.0-17.5) gm/dL Hct (39.0-53.0) % Glucose 114 H (74-99) mg/dL POC Glucose (mg/dL) 131 H 156 H (75-99) mg/dL Calcium 8.3 L (8.4-10.2) mg/dL Albumin 3.0 L (3.5-5.0) g/dL 10/27/16 10/27/16 10/27/16 Range/Units 06:19 07:22 11:56 RBC 4.17 L (4.30-5.90) m/uL Hgb 11.2 L (13.0-17.5) gm/dL Hct 34.8 L (39.0-53.0) % Glucose (74-99) mg/dL POC Glucose (mg/dL) 101 H 116 H (75-99) mg/dL Calcium (8.4-10.2) mg/dL Albumin (3.5-5.0) g/dL Assessment and Plan (1) Diabetic ulcer of left foot associated with diabetes mellitus due to underlying condition Status: Acute (2) Sepsis Status: Acute Plan: 1- patient with left diabetic foot infection, wound culture group C streptococcus along with group C Streptococcus bacteremia. 2-pt to continue antibiotic in the form of Rocephin 2 g daily along with oral Flagyl for a total of 6 weeks along with local wound care with wound vac.
== END 2016-10-27 17:00 | DRG 854 ==
LOC: EC 22:15 → 5MS5E 10-17 00:49
PROVIDERS: ADMIT Family Medicine; ATTEND Family Medicine
PROC: B5181ZA Fluoroscopy of Superior Vena Cava using Low Osmolar Contrast, Guidance (ICD-10-PCS; principal; 2016-10-20 12:13)
PROC: 02HV33Z Insertion of Infusion Device into Superior Vena Cava, Percutaneous Approach (ICD-10-PCS; principal; 2016-10-20 12:13)
PROC: B548ZZA Ultrasonography of Superior Vena Cava, Guidance (ICD-10-PCS; principal; 2016-10-20 12:13)
PROC: 0Y6S0Z0 Detachment at Left 2nd Toe, Complete, Open Approach (ICD-10-PCS; 2016-10-25)
DX: A41.9 Sepsis, unspecified organism (principal); L03.115 Cellulitis of right lower limb; E11.42 Type 2 diabetes mellitus with diabetic polyneuropathy; E11.621 Type 2 diabetes mellitus with foot ulcer; Z68.41 Body mass index [BMI] 40.0-44.9, adult; M86.9 Osteomyelitis, unspecified; E11.65 Type 2 diabetes mellitus with hyperglycemia; E66.01 Morbid (severe) obesity due to excess calories; I87.8 Other specified disorders of veins; L97.529 Non-pressure chronic ulcer of other part of left foot with unspecified severity; E11.69 Type 2 diabetes mellitus with other specified complication; Z79.2 Long term (current) use of antibiotics; Z79.4 Long term (current) use of insulin; Z79.899 Other long term (current) drug therapy; Z82.49 Family history of ischemic heart disease and other diseases of the circulatory system; Z83.3 Family history of diabetes mellitus; Z88.0 Allergy status to penicillin; Z79.84 Long term (current) use of oral hypoglycemic drugs
CPT/HCPCS: 36415; 36569; 76937; 77001; 78315; 80048; 80053; 80202; 82009; 83036; 83605; 84443; 85025; 85610; 87040; 87070; 87075; 87077; 87186; 87205; 87324; 88305; 88311; 93923; 96361; 96365; 99284

== ENCOUNTER 2017-10-30 11:01 | Inpatient (IN) | payer OTHER ==
[2017-10-30] MEDS ORDERED: NALOXONE 0.4 MG/ML 1 ML VIAL IV PRN (13:23)
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
[2017-10-30] MEDS ORDERED: LEVOFLOXACIN 750MG-D5W PMX 750 MG in DEXTROSE/WATER 1 150ML.BAG IVPB STA (13:25)
[2017-10-30] MEDS ORDERED: VANCOMYCIN IV PER PHARMACY 1 EACH MISC MISCELLANE PRN (13:25)
[2017-10-30] MEDS ORDERED: VANCOMYCIN 2,500 MG in SODIUM CHLORIDE 0.9% 500 ML IVPB ONE (13:45)
[2017-10-30 13:54] LABS: Basophils % (A) 0 %; Eosinophils # (A) 0.1 k/uL (0-0.7); Eosinophils % (A) 1 %; HCT 31.5 % (39.0-53.0); HGB 10.4 gm/dL (13.0-17.5); Lymphocytes # (A) 0.6 k/uL (1.0-4.8); Lymphocytes % (A) 3 %; MCH 26.4 pg (25.0-35.0); Mean Platelet Volume 7.3; Monocytes # (A) 0.6 k/uL (0-1.0); Monocytes % (A) 3 %; Neutrophils # (A) 17.5 k/uL (1.3-7.7); Neutrophils % (A) 92 %; Platelet Count 291 k/uL (150-450); Poikilocytosis Slight; RBC 3.94 m/uL (4.30-5.90)
[2017-10-30 14:05] LABS: ALT 42 U/L (21-72); AST 25 U/L (17-59); Albumin 3.1 g/dL (3.5-5.0); Alkaline Phosphatase 59 U/L (38-126); Anion Gap 12 mmol/L; Blood Urea Nitrogen 20 mg/dL (9-20); Calcium 8.4 mg/dL (8.4-10.2); Carbon Dioxide 23 mmol/L (22-30); Chloride 94 mmol/L (98-107); Glucose 340 mg/dL (74-99); Potassium 4.6 mmol/L (3.5-5.1); Sodium 129 mmol/L (137-145); Total Protein 6.6 g/dL (6.3-8.2)
--- NOTE | 2017-10-30 14:06 | XR ---
Left foot HISTORY: Nonhealing wound 3 views of the left foot correlated to prior exam 10/16/2016 The distal aspect of the second metatarsal and remainder of the digit is no longer seen. There is sof t tissue swelling. Lucency at the volar aspect of the forefoot and within the soft tissues compatible with nonhealing ulcer. IMPRESSION: Correlate for possible prior surgery, osteomyelitis, cannot exclude gas forming organism, abscess.
[2017-10-30 14:10] LABS: INR 1.4 (<1.2); Partial Thromboplastin Time 24.7 sec (22.0-30.0); Prothrombin Time 12.9 sec (9.0-12.0)
[2017-10-30 15:32] VITALS: BMI 40.1
[2017-10-30] MEDS ORDERED: fentaNYL (PF) 50 MCG/ML 2 ML AMP IV PRN (16:25)
[2017-10-30] MEDS ORDERED: HYDROmorphone 0.5 MG/0.5 ML SYRINGE IVP PRN (16:25)
[2017-10-30] MEDS ORDERED: ONDANSETRON 4 MG/2 ML VIAL IVP PRN (16:25)
[2017-10-30 17:48] LABS: Glucose,Whole Blood 348 mg/dL (75-99)
[2017-10-30] MEDS: LACTATED RINGERS 1,000 ML IV SCH (17:48)
[2017-10-30] MEDS: INSULIN ASPART 100 UNIT/ML 1 ML 10 ML VIAL SQ SCH ×2 (17:48→22:08)
[2017-10-30] MEDS ORDERED: LEVOFLOXACIN 750MG-D5W PMX 750 MG in DEXTROSE/WATER 1 150ML.BAG IVPB ONE (20:00)
[2017-10-30] MEDS: HYDROcodone/APAP 5-325MG 1 EACH TAB PO PRN (20:04)
[2017-10-30 21:22] LABS: Glucose,Whole Blood 300 mg/dL (75-99)
[2017-10-30] MEDS: VANCOMYCIN 2,000 MG in SODIUM CHLORIDE 0.9% 500 ML IVPB SCH (22:02)
[2017-10-30] MEDS: metFORMIN 500 MG TAB PO SCH (22:08)
[2017-10-31] MEDS ORDERED: ACETAMINOPHEN TAB 325 MG TAB ONE ×2 (01:00→01:01)
[2017-10-31] MEDS ORDERED: ACETAMINOPHEN TAB 325 MG TAB PO PRN (04:53)
[2017-10-31 07:38] LABS: Glucose,Whole Blood 254 mg/dL (75-99)
[2017-10-31] MEDS: VANCOMYCIN 2,000 MG in SODIUM CHLORIDE 0.9% 500 ML IVPB SCH ×3 (08:03→23:39)
[2017-10-31] MEDS: INSULIN ASPART 100 UNIT/ML 1 ML 10 ML VIAL SQ SCH ×4 (08:03→21:14)
[2017-10-31] MEDS: LISINOPRIL 20 MG TAB PO SCH (08:04)
[2017-10-31] MEDS: risperiDONE 0.5 MG TAB PO SCH (08:04)
[2017-10-31] MEDS: metFORMIN 500 MG TAB PO SCH ×2 (08:04→20:10)
[2017-10-31 08:54] LABS: HCT 29.5 % (39.0-53.0); HGB 9.7 gm/dL (13.0-17.5); Hypochromasia Slight; MCH 26.8 pg (25.0-35.0); MCHC 32.8 g/dL (31.0-37.0); MCV 81.5 fL (80.0-100.0); Mean Platelet Volume 7.3; Platelet Count 268 k/uL (150-450); RBC 3.63 m/uL (4.30-5.90); RDW 13.9 % (11.5-15.5); WBC 11.2 k/uL (3.8-10.6)
[2017-10-31 09:05] LABS: Anion Gap 9 mmol/L; Blood Urea Nitrogen 19 mg/dL (9-20); Calcium 7.9 mg/dL (8.4-10.2); Carbon Dioxide 23 mmol/L (22-30); Chloride 100 mmol/L (98-107); Glucose 255 mg/dL (74-99); Potassium 4.6 mmol/L (3.5-5.1); Sodium 132 mmol/L (137-145)
[2017-10-31] MEDS ORDERED: IV FLUID CONTINUATION 100 ML IV ONE (11:13)
[2017-10-31] MEDS ORDERED: HYDROmorphone 0.5 MG/0.5 ML SYRINGE IVP PRN (11:14)
[2017-10-31] MEDS ORDERED: ONDANSETRON 4 MG/2 ML VIAL IVP PRN (11:14)
[2017-10-31] MEDS ORDERED: fentaNYL (PF) 50 MCG/ML 2 ML AMP IV PRN (11:14)
[2017-10-31] MEDS ORDERED: LACTATED RINGERS 1,000 ML IV SCH (11:14)
[2017-10-31] MEDS: LACTATED RINGERS 1,000 ML IV SCH ×2 (11:42→12:00)
[2017-10-31] MEDS ORDERED: LIDOCAINE 1% 20 ML VIAL (10MG/ML) FOR IV START INTRADERMA ONE (11:42)
[2017-10-31 11:45] LABS: Glucose,Whole Blood 246 mg/dL (75-99)
[2017-10-31] MEDS ORDERED: MIDAZOLAM 2 MG/2 ML VIAL ONE (12:00)
[2017-10-31] MEDS ORDERED: PROPOFOL 10 MG/ML 20 ML VIAL IV ONE (12:00)
[2017-10-31] MEDS ORDERED: fentaNYL (PF) 50 MCG/ML 2 ML AMP ONE (12:00)
[2017-10-31] MEDS ORDERED: KETAMINE 10 MG/ML 20 ML VIAL ONE (12:00)
[2017-10-31] MEDS ORDERED: INSULIN ASPART 100 UNIT/ML 1 ML 10 ML VIAL SQ ONE (13:22)
[2017-10-31 13:26] LABS: Glucose,Whole Blood 248 mg/dL (75-99)
--- NOTE | 2017-10-31 13:39 | P.SQBNDB ---
SubQ & Bone Debridement - Subcutaneous & Bone Debridement Subcutaneous & Bone Debridement: Date of service: 10/31/2017 Surgeon: Andrew Pre-and postop diagnosis: Diabetic ulcer left foot with bone necrosis. Diabetic ulcer right foot with fatty tissue exposed Type of debridement: Excisional surgical including bone Chief complaint: ulcer of plantar left forefoot and lateral right foot Anesthesia: IV sedation was provided by anesthesia Signs of infection: Mild redness and necrotic purulent tissue on the left, mild redness on the right. Other material in the wound that is expected to inhibit healing or promote adjacent tissue breakdown: As described below Degree of epithelialization: [%] Method and instrument: Surgical debridement with scalpel and rongeur Character of the wound after debridement: Clean bloody subcutaneous and deep tissue bed with clean bone edges above and below the area of debridement on the left Description of necrotic material present: Necrotic soft tissue and bone and necrotic skin edges Description of tissue removed: Same Pre-debridement measurement: Left foot 3 x 3 right 1.5 x 2 cm and left 0.5 right 0.1 cm in depth Postoperative debridement measurement: Left 4 x 4.2, right 2 x 4 cm and left 3.5 and right 0.2 cm in depth Specimens bony specimen sent for culture Control of bleeding:[Bleeding was easily controlled with saline moistened gauze and light pressure and electrocautery] Post debridement dressing: Absorptive silver gauze and Jarocho wrap [Patient tolerated procedure well]
[2017-10-31 14:48] LABS: Glucose,Whole Blood 253 mg/dL (75-99)
[2017-10-31] MEDS: ATENOLOL 25 MG TAB PO SCH (14:51)
[2017-10-31] MEDS: HYDROcodone/APAP 5-325MG 1 EACH TAB PO PRN ×2 (16:34→20:11)
[2017-10-31 17:41] LABS: Glucose,Whole Blood 254 mg/dL (75-99)
[2017-10-31 20:36] LABS: Glucose,Whole Blood 276 mg/dL (75-99)
--- NOTE | 2017-11-01 00:45 | HP ---
HISTORY AND PHYSICAL CHIEF COMPLAINT: A 42-year-old white male with wound lacerations sent to the [facility] for diabetic wound infection. He has had multiple wounds for about a year. He has had a cast on his feet. He is not taking care of himself. Cancelled multiple appointments. Finally seen by Dr. Morales who sent him over to the hospital for surgery, revision and IV antibiotics. He is a diabetic for many years more. He is on metformin 500 b.i.d., 40 units daily, Humalog 2 units subcu b.i.d. ALLERGIES: PENICILLIN. REVIEW OF SYSTEMS: Fourteen point review of systems negative except for mentioned in HPI. FAMILY HISTORY: Father, coronary disease, diabetes mellitus. Mother, diabetes mellitus, osteoarthritis. SOCIAL HISTORY: Never smoked. No alcohol. No illicit drugs. PHYSICAL EXAM: VITAL SIGNS: Stable, afebrile. CARDIOVASCULAR: S1, S2. LUNGS: Clear. GI: Soft. PSYCH: Fair mood and affect. EXTREMITIES: Extensive wound on her left foot at the ball, 3 cm wide with necrotic tissue. Mild swelling and erythema. Temperature is 99.5, pulse rate 108, respiratory 16 to 18, blood pressure 116/62. ASSESSMENT: 1. Diabetic wound infections preamputation failed outpatient treatment, stage 3-4 ulceration on the 1st MTP joint. 2. Insulin-dependent diabetes mellitus. Please see Dr. Morales's consult. Broad-spectrum antibiotics with vancomycin and Zosyn. Please see further orders. MMODL / IJN: [id number] /
[2017-11-01] MEDS: HYDROcodone/APAP 5-325MG 1 EACH TAB PO PRN (00:51)
[2017-11-01] MEDS ORDERED: VANCOMYCIN TROUGH DUE 1 EACH MISC MISCELLANE ONE (07:00)
[2017-11-01 07:05] LABS: Glucose,Whole Blood 249 mg/dL (75-99)
[2017-11-01 08:39] LABS: ALT 44 U/L (21-72); AST 32 U/L (17-59); Albumin 2.4 g/dL (3.5-5.0); Alkaline Phosphatase 58 U/L (38-126); Anion Gap 9 mmol/L; Blood Urea Nitrogen 14 mg/dL (9-20); Calcium 7.5 mg/dL (8.4-10.2); Carbon Dioxide 20 mmol/L (22-30); Chloride 105 mmol/L (98-107); Glucose 224 mg/dL (74-99); Potassium 4.7 mmol/L (3.5-5.1); Sodium 134 mmol/L (137-145); Total Bilirubin 0.3 mg/dL (0.2-1.3); Total Protein 5.5 g/dL (6.3-8.2)
[2017-11-01] MEDS: VANCOMYCIN 2,000 MG in SODIUM CHLORIDE 0.9% 500 ML IVPB SCH ×2 (08:45→16:31)
[2017-11-01] MEDS: ATENOLOL 25 MG TAB PO SCH (08:47)
[2017-11-01] MEDS: metFORMIN 500 MG TAB PO SCH ×2 (08:47→21:12)
[2017-11-01] MEDS: INSULIN ASPART 100 UNIT/ML 1 ML 10 ML VIAL SQ SCH ×4 (08:47→21:12)
[2017-11-01] MEDS: LISINOPRIL 20 MG TAB PO SCH (08:48)
[2017-11-01] MEDS: risperiDONE 0.5 MG TAB PO SCH ×2 (08:48→08:53)
[2017-11-01 09:01] LABS: Basophils % (A) 0 %; Eosinophils # (A) 0.3 k/uL (0-0.7); Eosinophils % (A) 3 %; HCT 27.6 % (39.0-53.0); HGB 8.7 gm/dL (13.0-17.5); Hypochromasia Moderate; Lymphocytes # (A) 1.4 k/uL (1.0-4.8); Lymphocytes % (A) 14 %; MCH 26.1 pg (25.0-35.0); MCHC 31.6 g/dL (31.0-37.0); MCV 82.8 fL (80.0-100.0); Mean Platelet Volume 7.5; Monocytes # (A) 0.5 k/uL (0-1.0); Monocytes % (A) 5 %; Neutrophils # (A) 7.5 k/uL (1.3-7.7); Neutrophils % (A) 76 %; Platelet Count 257 k/uL (150-450); Poikilocytosis Slight; RBC 3.34 m/uL (4.30-5.90); RDW 13.9 % (11.5-15.5); WBC 9.9 k/uL (3.8-10.6)
[2017-11-01 12:19] LABS: Glucose,Whole Blood 285 mg/dL (75-99)
--- NOTE | 2017-11-01 16:20 | P.PN ---
Subjective Progress Note Date: 11/01/17 Principal diagnosis: Diabetic ulcer plantar left foot with bone necrosis and new ulcer lateral right foot with fatty tissue exposed. Previous medical history of amputation of the left second toe, diabetes mellitus, multiple soft tissue and skin abscesses in the past with MRSA, and closed head injury. POD #1 excisional surgical debridement of the left forefoot including bone and lateral right foot. Patient currently sitting up in a chair in no acute distress. Denies pain, shortness of breath. Both legs are elevated and he states he has been compliant with non-weightbearing status. Objective - Vital Signs Vital signs: Vital Signs Temp 98.8 F 11/01/17 15:00 Pulse 90 11/01/17 15:00 Resp 16 11/01/17 15:00 BP 136/65 11/01/17 15:00 Pulse Ox 96 11/01/17 15:00 Intake & Output 10/31/17 11/01/17 11/01/17 18:59 06:59 18:59 Intake Total 410 800 Output Total 10 400 1000 Balance 400 400 -1000 Weight 127.006 kg 127.006 kg Intake: IV 410 Oral 800 Output: Urine 400 1000 Estimated Blood Loss 10 Other: Voiding Method Toilet # Voids 2 3 - Constitutional General appearance: Present: cooperative, no acute distress, obese - Respiratory Details: Lungs sounds clear bilaterally. Respirations even, nonlabored. Currently on room air with oxygen saturation 96%. - Cardiovascular Details: S1, S2 present. Regular rate and rhythm. Palpable peripheral pulses bilaterally. Bilateral lower extremity edema present. No calf pain or tenderness noted. - Gastrointestinal Gastrointestinal Comment(s): Abdomen soft, nontender, nondistended. Active bowel sounds 4 quadrants. Tolerating diet. - Genitourinary Genitourinary Comment(s): Continues to void clear, yellow urine. - Integumentary Integumentary Comment(s): Skin is warm and dry. Left lower extremity dressing change. Wound bed dry, no purulent drainage to right foot. Right foot ulcer with granulation tissue present. Bilateral dressings changed, absorptive silver placed on right foot wound - Neurologic Neurologic: Present: CNII-XII intact - Musculoskeletal Musculoskeletal: Present: strength equal bilaterally - Psychiatric Psychiatric: Present: A&O x's 3, appropriate affect - Allied health notes Allied health notes reviewed: nursing - Labs CBC & Chem 7: 11/01/17 07:05 07/19/18 07:05 Labs: Abnormal Lab Results - Last 24 Hours (Table) 10/31/17 10/31/17 11/01/17 Range/Units 17:22 20:35 07:03 RBC (4.30-5.90) m/uL Hgb (13.0-17.5) gm/dL Hct (39.0-53.0) % Sodium (137-145) mmol/L Carbon Dioxide (22-30) mmol/L Glucose (74-99) mg/dL POC Glucose (mg/dL) 254 H 276 H 249 H (75-99) mg/dL Calcium (8.4-10.2) mg/dL Total Protein (6.3-8.2) g/dL Albumin (3.5-5.0) g/dL 11/01/17 11/01/17 11/01/17 Range/Units 07:05 07:05 12:16 RBC 3.34 L (4.30-5.90) m/uL Hgb 8.7 L (13.0-17.5) gm/dL Hct 27.6 L (39.0-53.0) % Sodium 134 L (137-145) mmol/L Carbon Dioxide 20 L (22-30) mmol/L Glucose 224 H (74-99) mg/dL POC Glucose (mg/dL) 285 H (75-99) mg/dL Calcium 7.5 L (8.4-10.2) mg/dL Total Protein 5.5 L (6.3-8.2) g/dL Albumin 2.4 L (3.5-5.0) g/dL Microbiology - Last 24 Hours (Table) 10/30/17 13:36 Blood Culture - Preliminary Blood No Growth after 48 hours 10/31/17 12:33 Anaerobic Culture - Preliminary Foot - Left 10/31/17 12:33 Gram Stain - Preliminary Foot - Left Wound Culture - Preliminary Assessment and Plan (1) Diabetic ulcer of right foot Current Visit: Yes Status: Chronic Code(s): E11.621 - TYPE 2 DIABETES MELLITUS WITH FOOT ULCER; L97.519 - NON-PRS CHRONIC ULCER OTH PRT RIGHT FOOT W UNSP SEVERITY SNOMED Code(s): 582821119 (2) Diabetic foot ulcer Current Visit: Yes Status: Chronic Code(s): E11.621 - TYPE 2 DIABETES MELLITUS WITH FOOT ULCER; L97.509 - NON-PRESSURE CHRONIC ULCER OTH PRT UNSP FOOT W UNSP SEVERITY SNOMED Code(s): 966331123 (3) Uncontrolled diabetes mellitus Current Visit: Yes Status: Chronic Code(s): E11.65 - TYPE 2 DIABETES MELLITUS WITH HYPERGLYCEMIA SNOMED Code(s): 077489443 (4) Morbid obesity with BMI of 40.0-44.9, adult Current Visit: Yes Status: Chronic Code(s): E66.01 - MORBID (SEVERE) OBESITY DUE TO EXCESS CALORIES; Z68.41 - BODY MASS INDEX (BMI) 40.0-44.9, ADULT SNOMED Code(s): 038134498 Plan: 1. Continue dressing change to both right and left foot every other day. Jarocho wraps to be changed daily from toes to knees. 2. Keep bilateral lower extremities elevated. Patient is to remain nonweightbearing. 3. Medical management per primary care service. 4. Antibiotics per infectious disease. 5. Patient may need subacute rehab at discharge due to multiple medical comorbidities and physical therapy needs. 6. More recommendations to follow. Time with Patient: Greater than 30
[2017-11-01 16:38] LABS: Glucose,Whole Blood 292 mg/dL (75-99)
[2017-11-01 20:38] LABS: Glucose,Whole Blood 252 mg/dL (75-99)
[2017-11-01] MEDS ORDERED: INSULIN DETEMIR 100 UNIT/ML 10 ML VIAL SQ SCH (21:00)
[2017-11-01] MEDS ORDERED: risperiDONE 0.5 MG TAB PO SCH (21:00)
[2017-11-01] MEDS: SODIUM FERRIC GLUCONAT-SUCROSE 125 MG in SODIUM CHLORIDE 0.9% 100 ML IVPB SCH (22:12)
--- NOTE | 2017-11-01 22:19 | PN ---
PROGRESS NOTE SUBJECTIVE: This is a white male with diabetic wound infection, status post debridement. He is going to need rehab placement after his surgery on his left foot necrosis, new ulcer, lateral right foot fatty tissue exposed, amputation of the left second toe, diabetes mellitus, multiple skin abscesses in the past with MRSA, close head injury, status post excisional surgical debridement of the left forefoot, including bone, and lateral right foot. Vital signs are reviewed. CARDIOVASCULAR: S1, S2. LUNGS: Clear. GI: Soft. HEMATOLOGY: Negative Homans. Wounds as above. Hemoglobin is 8.7, sodium 134. Albumin is low at 2.4. Glucose 285. ASSESSMENT: 1. Diabetic ulcer of the right foot. 2. Diabetic foot ulcer. 3. Uncontrolled diabetes mellitus. 4. Morbid obesity. Continue dressings to the right and left foot. Medical management, antibiotics per Infectious Disease. Going to rehab soon. MMODL / IJN: [id number] /
[2017-11-01] MEDS ORDERED: ACETAMINOPHEN TAB 325 MG TAB ONE (23:32)
[2017-11-02] MEDS ORDERED: metroNIDAZOLE 500 MG TAB ONE (00:10)
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
[2017-11-02 07:25] LABS: Glucose,Whole Blood 120 mg/dL (75-99)
[2017-11-02 07:28] VITALS: RESP 20
[2017-11-02] MEDS: INSULIN ASPART 100 UNIT/ML 1 ML 10 ML VIAL SQ SCH ×3 (07:28→18:11)
[2017-11-02 08:57] LABS: Basophils % (A) 0 %; Eosinophils # (A) 0.3 k/uL (0-0.7); Eosinophils % (A) 3 %; HCT 30.9 % (39.0-53.0); Hypochromasia Slight; Lymphocytes # (A) 1.4 k/uL (1.0-4.8); Lymphocytes % (A) 14 %; MCH 26.2 pg (25.0-35.0); MCHC 32.3 g/dL (31.0-37.0); MCV 81.1 fL (80.0-100.0); Mean Platelet Volume 7.1; Monocytes # (A) 0.4 k/uL (0-1.0); Monocytes % (A) 4 %; Neutrophils # (A) 7.8 k/uL (1.3-7.7); Neutrophils % (A) 77 %; Platelet Count 320 k/uL (150-450); Poikilocytosis Slight; RBC 3.81 m/uL (4.30-5.90); RDW 13.6 % (11.5-15.5); WBC 10.1 k/uL (3.8-10.6)
[2017-11-02 08:59] LABS: ALT 42 U/L (21-72); AST 27 U/L (17-59); Albumin 2.6 g/dL (3.5-5.0); Alkaline Phosphatase 67 U/L (38-126); Anion Gap 7 mmol/L; Blood Urea Nitrogen 12 mg/dL (9-20); Carbon Dioxide 24 mmol/L (22-30); Chloride 104 mmol/L (98-107); Glucose 117 mg/dL (74-99); Potassium 4.4 mmol/L (3.5-5.1); Sodium 135 mmol/L (137-145); Total Bilirubin 0.3 mg/dL (0.2-1.3); Total Protein 5.8 g/dL (6.3-8.2)
[2017-11-02] MEDS: ATENOLOL 25 MG TAB PO SCH (09:08)
[2017-11-02] MEDS: metFORMIN 500 MG TAB PO SCH (09:08)
[2017-11-02] MEDS: metroNIDAZOLE 500 MG TAB PO SCH ×2 (09:08→17:08)
[2017-11-02] MEDS: LISINOPRIL 20 MG TAB PO SCH (09:08)
[2017-11-02] MEDS: SODIUM FERRIC GLUCONAT-SUCROSE 125 MG in SODIUM CHLORIDE 0.9% 100 ML IVPB SCH (10:02)
[2017-11-02 12:18] LABS: Glucose,Whole Blood 211 mg/dL (75-99)
[2017-11-02] MEDS ORDERED: LIDOCAINE 1% INJ 10MG/ML (20 ML MDV) SQ ONE (13:06)
--- NOTE | 2017-11-02 13:30 | IR ---
EXAMINATION TYPE: IR cvc insert >=5 years DATE OF EXAM: 11/02/2017 COMPARISON: NONE CLINICAL HISTORY: Infection Needs long-term intravenous access for antibiotics. PROCEDURE: After informed consent, the skin overlying the left basilic vein was localized with ultrasound and no gina to be compressible and patent. An ultrasound image was obtained and submitted on the patient's c herr. The overlying skin was prepped and draped and Lidocaine was used for local anesthesia. A skin trini was made with a scalpel. Access was gained to the vein under ultrasound guidance with a 21 gau ge needle and a 0.018 inch wire was advanced. Access site was dilated with Peel-Away sheath and cath eter tailored to the appropriate length and advanced such that the distal tip is at the cavoatrial ju nction. Spot image was obtained verifying placement. Catheter was fixed to the skin and a sterile d ressing was placed following hemostasis. Catheter was aspirated and flushed with saline. Patient wa s discharged in stable condition without complication. Maximal barrier technique is utilized. Ultras ound image is documented on the chart. Ultrasound used with sterile technique. Fluoro time and fluoroscopic images submitted to document procedure: 28 intraoperative C-arm images, 0.4 minutes fluoroscopy time. IMPRESSION: STATUS POST ULTRASOUND AND FLUOROSCOPIC GUIDED PICC LINE PLACEMENT, READY FOR USE. THIS PROCEDURE WAS PERFORMED BY THE UNDERSIGNED.
[2017-11-02 14:26] VITALS: BP 134/72; PULSE 89; TEMP 97.6
--- NOTE | 2017-11-02 15:47 | DS ---
DISCHARGE SUMMARY DATE OF ADMISSION: 10/30/2017. DATE OF DISCHARGE: 11/02/2017. DISCHARGE MEDICATIONS: 1. Cefazolin 3 g IV piggyback q.8 hours for 42 days. 2. Flagyl 500 mg p.o. q.8 hours for 42 days. 3. Levemir 40 units subcu daily. 4. Zestril 20 mg daily. 5. Glucophage 500 mg b.i.d. 6. Insulin NovoLog 15 units subcu daily. 7. Respirdal 0.5 mg daily. 8. Carmichaels 5/325 1 t.i.d. 9. Tenormin 25 mg daily. CONDITION: Stable. PROGNOSIS: Guarded. Ambulate as tolerated. DISCHARGE DIAGNOSES: 1. Insulin-dependent diabetes mellitus. 2. Diabetic wound infection. 3. Stage 3-4 ulcers in the 1st MTP. 4. Noncompliance. 5. Obesity. HOSPITAL COURSE: This is a white male who is admitted with significant diabetic wound infections of the foot. He had debridement with Dr. Morales. The patient will need long-term antibiotics after deep wound cultures came back positive. Will follow up in next 24 to 48 hours in the long term with the patient. He will need long-term IV antibiotics and possible amputation down the road. He is status post amputation of his left great toe at this time. MMODL / IJN: [id number] /
[2017-11-02 17:03] LABS: Glucose,Whole Blood 220 mg/dL (75-99)
--- NOTE | 2017-11-02 17:32 | PN ---
PROGRESS NOTE DATE OF SERVICE: 11/02/2017 REASON FOR FOLLOWUP: Left diabetic foot infection and osteomyelitis and group B strep. INTERVAL HISTORY: The patient is afebrile, has been breathing comfortably. Denies having any chest pain or shortness of breath or cough. No abdominal pain or any diarrhea. PHYSICAL EXAMINATION: Blood pressure 134/72 with a pulse of 89, temperature 97.6. He is 97% on room air. General description is a middle-aged male lying in bed in no distress. RESPIRATORY SYSTEM: Unlabored breathing. Clear to auscultation anteriorly. HEART: S1, S2. Regular rate and rhythm. ABDOMEN: Soft. No tenderness. Left foot is currently dressed up. No obvious drainage on the dressing. LABS: Hemoglobin is 10 with a white count of 10.1. BUN of 12, creatinine 0.73. DIAGNOSTIC IMPRESSION AND PLAN: Patient with left foot diabetic foot infection with underlying osteomyelitis, Stanford grade 3. Culture positive for Streptococcus agalactiae. Currently on cefazolin 3 grams q.8 because of his weight along with oral Flagyl. He did get a PICC line to continue with these antibiotics for at least 6 weeks with close outpatient followup. Prescriptions have been written for the patient. MMODL / IJN: [id number] /
--- NOTE | 2017-11-06 11:31 | P.ARTDOP ---
Arterial Doppler LOWER EXTREMITY ARTERIAL DOPPLER: DATE OF SERVICE: 10/30/2017 Reason for study: Diabetic Left foot ulcer. Doppler waveforms: Multiphasic bilaterally throughout. Pulse volume recording: Fairly normal at the toe level. Pressure gradients: None. Ankle-brachial indices: Greater than 1 bilaterally. Toe pressures: [] on the right, [] on the left Impression: Normal study.
== END 2017-11-02 18:37 | DRG 623 ==
LOC: EC 11:01 → 4MS4W 13:23
PROVIDERS: ADMIT Family Medicine; ATTEND Family Medicine
PROC: 0JBQ0ZZ Excision of Right Foot Subcutaneous Tissue and Fascia, Open Approach (ICD-10-PCS; 2017-10-31)
PROC: 0QBM0ZZ Excision of Left Tarsal, Open Approach (ICD-10-PCS; principal; 2017-10-31 12:00)
PROC: 02HV33Z Insertion of Infusion Device into Superior Vena Cava, Percutaneous Approach (ICD-10-PCS; 2017-11-02 13:25)
DX: E11.621 Type 2 diabetes mellitus with foot ulcer (principal); L03.116 Cellulitis of left lower limb; M86.9 Osteomyelitis, unspecified; Z68.41 Body mass index [BMI] 40.0-44.9, adult; E11.628 Type 2 diabetes mellitus with other skin complications; E11.65 Type 2 diabetes mellitus with hyperglycemia; E11.69 Type 2 diabetes mellitus with other specified complication; E66.01 Morbid (severe) obesity due to excess calories; L97.524 Non-pressure chronic ulcer of other part of left foot with necrosis of bone; L97.512 Non-pressure chronic ulcer of other part of right foot with fat layer exposed; B95.5 Unspecified streptococcus as the cause of diseases classified elsewhere; Z79.899 Other long term (current) drug therapy; Z79.4 Long term (current) use of insulin; Z91.19 Patient's noncompliance with other medical treatment and regimen; Z89.422 Acquired absence of other left toe(s); Z89.412 Acquired absence of left great toe; Z88.0 Allergy status to penicillin; Z86.14 Personal history of Methicillin resistant Staphylococcus aureus infection; Z87.828 Personal history of other (healed) physical injury and trauma; Z82.49 Family history of ischemic heart disease and other diseases of the circulatory system; Z83.3 Family history of diabetes mellitus
CPT/HCPCS: 36569; 76937; 77001; 80048; 80053; 80202; 83605; 85025; 85027; 85610; 85730; 87040; 87070; 87075; 87077; 87186; 87205; 93922; 93923; 96365; 96366; 99284

== ENCOUNTER → 2018-01-15 | Outpatient (CLI) | payer OTHER ==
--- NOTE | 2018-01-16 01:47 | MR ---
EXAMINATION TYPE: MR foot LT wo/w con DATE OF EXAM: 01/15/2018 COMPARISON: None HISTORY: Osteomyelitis CONTRAST: Standard multiplanar, multisequence MRI departmental protocol utilizing 15 mL intravenous Gadavist ga dolinium contrast. FINDINGS: There is abnormal decreased signal in the head of the first metatarsal on the T1 images. St ir images showed apparent destructive changes of the first metatarsal head. There is absence of the s econd metatarsal head. There is amputation of the second toe. The contrast images show diffuse enhanc ement on the plantar tissues of the forefoot especially at the plantar aspect of the distal first and second metatarsals. IMPRESSION: Amputation of second toe at the level of the distal second metatarsal. There are destructive changes in the first metatarsal head consistent with osteomyelitis. Soft tissue swelling and enhancement in the forefoot consistent with cellulitis.
== END | disposition home or self-care (01) ==
LOC: RADMRIMAIN 08:04
PROVIDERS: ATTEND Thoracic Surgery (Cardiothoracic Vascular Surgery)
DX: M79.89 Other specified soft tissue disorders (principal); M89.8X8 Other specified disorders of bone, other site; Z89.422 Acquired absence of other left toe(s)
CPT/HCPCS: 73720; A9581

== ENCOUNTER → 2018-02-15 | Day surgery (SDC) | payer OTHER ==
[2018-02-14 12:35] VITALS: BMI 45.9
[~2018-02-15] MED LIST: LIDOCAINE 1% INJ 10MG/ML (20 ML MDV) SQ ONE
[2018-02-15 13:43] VITALS: RESP 18; TEMP 97.8
[2018-02-15 14:01] LABS: Anion Gap 9 mmol/L; Blood Urea Nitrogen 21 mg/dL (9-20); Calcium 8.7 mg/dL (8.4-10.2); Carbon Dioxide 24 mmol/L (22-30); Chloride 104 mmol/L (98-107); Glucose 319 mg/dL (74-99); Potassium 4.5 mmol/L (3.5-5.1); Sodium 137 mmol/L (137-145)
[2018-02-15 14:14] VITALS: BP 132/69; PULSE 88
--- NOTE | 2018-02-15 14:26 | IR ---
PICC LINE PLACEMENT: HISTORY: Infection requiring long-term antibiotic therapy PROCEDURE: Ultrasound and fluoroscopic guidance of PICC line placement. COMPLICATIONS: None ANESTHESIA: 1. 1% Lidocaine locally. FINDINGS/TECHNIQUE: The procedure was explained to the patient. The risks, complications, benefits and alternatives were discussed and any questions were answered. Informed consent was obtained. The patient was placed supine on the fluoroscopic table and prepped and draped in the usual sterile fash ion. Utilizing a 21 gauge needle and sonographic and fluoroscopic guidance, access in the left basi lic vein vein was achieved and there is placement of a 0.018 guidewire. The vein is patent. A 4-F s anahi was placed over the guidewire. The guidewire and dilator were removed and a 4-F. PICC line was placed through the sheath with the tip at the level of the SVC. The sheath was removed, the cathete r was flushed and sutured into position. The patient was stable throughout the procedure and remaine d stable upon discharge from the Department of Radiology. The vein puncture was patent under ultrasound. A delvalle scale image was obtained to document patency of the vein punctured. All elements of the maximal barrier technique were utilized. FLUOROSCOPY TIME: 0.2 minutes, one image submitted IMPRESSION: Successful PICC line placement under ultrasound and fluoroscopic guidance.
== END ==
LOC: CATHCVL 13:27
PROVIDERS: ATTEND Radiology Diagnostic Radiology
DX: E11.621 Type 2 diabetes mellitus with foot ulcer (principal); L97.529 Non-pressure chronic ulcer of other part of left foot with unspecified severity
CPT/HCPCS: 36569; 76937; 77001; 80048; C1751; C1769; J2001

== ENCOUNTER 2018-05-03 10:37 | Inpatient (IN) | payer OTHER ==
[2018-05-03] MEDS ORDERED: SODIUM CHLORIDE 0.9% 1,000 ML IV STA (10:55)
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
[2018-05-03 11:41] LABS: Basophils % (A) 0 %; Eosinophils # (A) 0.3 k/uL (0-0.7); Eosinophils % (A) 4 %; HCT 34.3 % (39.0-53.0); HGB 11.1 gm/dL (13.0-17.5); Hypochromasia Slight; Lymphocytes # (A) 1.6 k/uL (1.0-4.8); Lymphocytes % (A) 18 %; MCH 25.5 pg (25.0-35.0); MCHC 32.4 g/dL (31.0-37.0); MCV 78.9 fL (80.0-100.0); Mean Platelet Volume 6.5; Monocytes # (A) 0.5 k/uL (0-1.0); Monocytes % (A) 6 %; Neutrophils % (A) 69 %; Platelet Count 238 k/uL (150-450); RBC 4.35 m/uL (4.30-5.90); WBC 8.6 k/uL (3.8-10.6)
[2018-05-03 11:50] LABS: ALT 30 U/L (21-72); AST 17 U/L (17-59); Albumin 3.3 g/dL (3.5-5.0); Alkaline Phosphatase 52 U/L (38-126); Anion Gap 8 mmol/L; Blood Urea Nitrogen 20 mg/dL (9-20); Calcium 8.8 mg/dL (8.4-10.2); Carbon Dioxide 26 mmol/L (22-30); Chloride 105 mmol/L (98-107); Glucose 195 mg/dL (74-99); Potassium 4.1 mmol/L (3.5-5.1); Sodium 139 mmol/L (137-145); Total Bilirubin 0.4 mg/dL (0.2-1.3); Total Protein 6.8 g/dL (6.3-8.2)
[2018-05-03] MEDS ORDERED: VANCOMYCIN IV PER PHARMACY 1 EACH MISC MISCELLANE PRN (12:10)
[2018-05-03] MEDS ORDERED: VANCOMYCIN 2,000 MG in SODIUM CHLORIDE 0.9% 500 ML 500 ML IVPB STA (12:16)
--- NOTE | 2018-05-03 12:50 | XR ---
EXAMINATION TYPE: XR foot complete LT DATE OF EXAM: 05/03/2018 COMPARISON: 10/30/2017 HISTORY: Diabetic foot ulcer TECHNIQUE: Three views are submitted. FINDINGS: There is diffuse soft tissue edema. Postsurgical change involving the second digit. There is erosive change involving the head of the first metatarsal. Calcaneal spur noted. IMPRESSION: 1. Relative to the prior x-ray there is erosive change involving the head of the first metatarsal whi ch may be chronic. If there is concern for osteomyelitis correlate with triple phase bone scan. 2. Previous surgery involving the second digit. 3. Diffuse soft tissue edema correlate for cellulitis.
[2018-05-03] MEDS ORDERED: MORPHINE SULFATE 4 MG/ML SYRINGE IV PRN (12:52)
[2018-05-03] MEDS ORDERED: ONDANSETRON 4 MG/2 ML VIAL IVP PRN (12:52)
[2018-05-03] MEDS ORDERED: NALOXONE 0.4 MG/ML 1 ML VIAL IV PRN (12:52)
[2018-05-03] MEDS ORDERED: HYDROcodone/APAP 5-325MG 1 EACH TAB PO PRN ×2 (12:52→14:36)
[2018-05-03] MEDS ORDERED: SODIUM CHLORIDE 0.9% 1,000 ML IV ONE (12:52)
[2018-05-03] MEDS ORDERED: INFLUENZA VACCINE (6 MOS+) 60 MCG/0.5 ML SYRINGE IM ONE (13:43)
[2018-05-03] MEDS ORDERED: INSULIN ASPART 100 UNIT/ML 1 ML 10 ML VIAL SQ ONE (14:37)
[2018-05-03 14:45] LABS: Glucose,Whole Blood 301 mg/dL (75-99)
[2018-05-03 15:01] LABS: Appearance,Urine Clear (Clear); Bilirubin,Urine Negative (Negative); Blood,Urine Trace (Negative); Color,Urine Yellow; Glucose,Urine (UA) 4+ (Negative); Ketones,Urine Negative (Negative); Leukocyte Esterase,Urine Negative (Negative); Mucus,Urine Rare /hpf; Nitrite,Urine Negative (Negative); PH, Urine 5.5 (5.0-8.0); Protein,Urine Trace (Negative); RBC,Urine 1 /hpf (0-5); Specific Gravity,Urine 1.023 (1.001-1.035); Urobilinogen,Urine <2.0 mg/dL (<2.0)
[2018-05-03 16:22] VITALS: BMI 43.0
[2018-05-03 16:52] LABS: Glucose,Whole Blood 321 mg/dL (75-99)
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
[2018-05-03] MEDS: PIPERACILLIN-TAZOBACTAM 3.375 GM in SODIUM CHLORIDE 0.9% 100 ML IVPB SCH (17:47)
[2018-05-03] MEDS: metFORMIN 500 MG TAB PO SCH (17:48)
[2018-05-03] MEDS: INSULIN ASPART 100 UNIT/ML 1 ML 10 ML VIAL SQ SCH ×2 (17:48→22:34)
[2018-05-03 20:38] LABS: Glucose,Whole Blood 274 mg/dL (75-99)
--- NOTE | 2018-05-03 22:21 | HP ---
HISTORY AND PHYSICAL CHIEF COMPLAINT: This patient is a 42-year-old with cellulitis of the left foot, diabetic ulcer grade 3 Ever's as well as a right foot infection, cellulitis in the Lisfranc area, left ulcer and abscess in metatarsals 2 and 3 and a similar wound to the right dorsum of the foot 3-4 cm wide. PAST MEDICAL HISTORY: 1. Uncontrolled diabetes mellitus. 2. Hypertension. 3. Vascular disorder. 4. Neuropathy. 5. Obesity. 6. He has been seen in the wound clinic weekly but still has persistent redness, swelling. 7. History of MRSA. 8. Recent left foot debridement. 9. Right callus removed. 10.I&D of skin abscesses. 11.Left foot second toe amputation and debridement. FAMILY HISTORY: Father with coronary artery disease, diabetes mellitus. Father had a leg amputation, osteoarthritis. HOME MEDICINES: 1. Glucophage. 2. Tenormin. 3. Meade. 4. NovoLog. 5. Risperdal. ALLERGIES: PENICILLIN. PHYSICAL EXAMINATION: Temperature 98, blood pressure 180/70, oxygen 96% on room air. PSYCH: He appears crying and nervous. LUNGS: Clear. CARDIOVASCULAR: S1, S2. ENDOCRINE: BMI is over 40. SKIN: He has ulcerations on bilateral dorsum of bilateral feet with significant redness of the foot, possibly an abscess, drainage mid ulcer area. It is about 2 to 3 by 2 inches. Ulcerations, bilateral dorsum of the feet. ASSESSMENT: 1. Diabetic wound infection. 2. Osteomyelitis likely. 3. Diabetic neuropathy. 4. Insulin-dependent diabetes mellitus. 5. Osteomyelitis. Vancomycin, Zosyn. Triphasic bone scan is ordered. 6. History of arthropathy, Charcot joint. Please see further IV antibiotics. Consult with Vascular and surgical consult. MMODL / IJN: [id number] /
[2018-05-03] MEDS: INSULIN DETEMIR 100 UNIT/ML 10 ML VIAL SQ SCH (22:36)
[2018-05-04] MEDS: VANCOMYCIN 2,000 MG in SODIUM CHLORIDE 0.9% 500 ML 500 ML IVPB SCH ×3 (00:24→17:45)
[2018-05-04] MEDS: PIPERACILLIN-TAZOBACTAM 3.375 GM in SODIUM CHLORIDE 0.9% 100 ML IVPB SCH ×3 (00:24→17:45)
[2018-05-04 03:43] LABS: Hemoglobin A1C 9.8 % (4.0-6.0)
--- NOTE | 2018-05-04 04:30 | CONS ---
CONSULTATION DATE OF SERVICE: 05/03/2018. REASON FOR CONSULTATION: Left diabetic foot wound infection with underlying osteomyelitis. HISTORY OF PRESENT ILLNESS: The patient is a 42-year-old male with a past medical history significant for a left diabetic foot ulcer with underlying osteomyelitis in this patient who has been very noncompliant with medication. The patient recently did have a culture positive from 1 of the wounds with Streptococcus with concern for underlying osteomyelitis. 6 weeks of IV antibiotics was arranged for the patient. PICC line schedule has been canceled and rescheduled multiple times because of inability to have a PICC line and the patient never showed up to the office for followup. The patient has been seeing Dr. Anderson in the wound care center. Patient who was seen in the Wound Care Center today and apparently was noticed to have worsening of his left foot with concern for underlying infection. He has been directed to go to the hospital. The patient did have a plantar wound on both feet, worse on the left foot with secondary swelling and redness of his left big toe area. The patient did have underlying diabetic neuropathy, hence did not recall any pain to the left foot. The patient was evaluated by the ER physician. The patient did have an x-ray which showed change involving the head of the 1st metatarsal which may be chronic. Previous involving the 2nd digit and diffuse soft tissue, edema correlate for cellulitis. The patient did have blood cultures as well as local wound cultures obtained. The patient was started on Zosyn and vancomycin. Infectious Disease was consulted for further recommendations regarding antibiotic therapy. The patient was started on vancomycin and Zosyn and admitted to the hospital and infectious disease was consulted for further recommendation regarding antibiotic therapy. REVIEW OF SYSTEMS: Positive points have been mentioned in HPI. Rest of the 14 systems has been negative. PAST MEDICAL HISTORY: Insulin-dependent diabetes mellitus, left diabetic foot infection, osteomyelitis. PAST SURGERY HISTORY: Closed head injury, I and D, multiple skin abscesses, amputation of left 2nd toe. SOCIAL HISTORY: Denies smoking, drinking or drug use. FAMILY HISTORY: Father with history of diabetes and coronary artery disease. Mother with history of diabetes and osteoarthritis. ALLERGIES: ALLERGIES TO PENICILLIN. However, the patient did tolerate without any problem and apparently did receive a dose of Zosyn without any problem either. MEDICATION: Medications include the patient is currently on Tylenol, [place], Tenormin, NovoLog, Levemir, Glucophage, Zofran, Zosyn 3.375 g q.8 hours and vancomycin. PHYSICAL EXAMINATION: Blood pressure is 136/85 with a pulse of 99, temperature 98.3. He is 98% on room air. General description is a middle-aged male lying in bed in no distress. No tachypnea. No accessory muscles of respiration use. HEENT: Shows pallor. No scleral icterus. Oral mucosal membranes are dry. No pharyngeal erythema or thrush. Neck: Trachea central. No thyromegaly. LUNGS: Unlabored breathing. Clear to auscultation anteriorly. No wheeze or crackles. Heart S1, S2. Regular rate and rhythm. ABDOMEN: Soft, no tenderness. No guarding. No rigidity. Left foot is plantar wound with no significant slough tissue. The wound was not . However, his left big toe is swollen and red. No foul smelling drainage. Neurological: The patient is awake, alert, oriented times three. Mood and affect normal. LABS: Hemoglobin 11.1, white count 8.6, BUN of 20, creatinine 0.66. Electrolytes have been normal. Liver enzymes are normal. UA is negative. Blood cultures obtained. Unfortunately, no local cultures were . DIAGNOSTIC IMPRESSION AND PLAN: 1. Patient with left diabetic foot infection, Ever's grade 3 in this patient with likely underlying left big toe osteomyelitis. The patient did have a previous history of streptococcal cellulitis, could be the same or different pathogen in this patient who has not taken his antibiotic as advised. The patient interrupted his initial treatment as he has to go and attend of one of his relatives and then when the PICC line was placed, the patient never followed up in the office. He is very noncompliant and more likely contributing to the nonhealing of this wound and persistent infection, more likely dealing with chronic osteomyelitis at this point. 2. Patient with PENICILLIN allergy, however, has tolerated Zosyn without any problem. Clinically doubt true penicillin allergy and should be removed from the chart. PLAN: 1. Await evaluation and possible debridement and deep culture should be obtained at the time of surgery. 2. Vancomycin, pharmacy to dose, target of 15 while watching his kidney function closely and Zosyn should provide adequate coverage for both gram-positive and gram- negative infection. 3. Local wound care with Aquacel Silver as ordered. 4. We will follow up on the clinical condition and culture to further adjust medication if needed. Thank you for this consultation. Will follow the patient along with you. MAUREEN / TATO: [id number] /
[2018-05-04 07:22] LABS: Glucose,Whole Blood 200 mg/dL (75-99)
[2018-05-04] MEDS: ATENOLOL 25 MG TAB PO SCH (08:40)
[2018-05-04] MEDS: INSULIN ASPART 100 UNIT/ML 1 ML 10 ML VIAL SQ SCH ×4 (08:40→21:59)
[2018-05-04] MEDS: risperiDONE 0.5 MG TAB PO SCH ×3 (08:40→21:58)
[2018-05-04] MEDS: metFORMIN 500 MG TAB PO SCH ×2 (08:40→17:45)
[2018-05-04 09:31] LABS: Basophils % (A) 0 %; Eosinophils # (A) 0.3 k/uL (0-0.7); Eosinophils % (A) 5 %; HCT 32.7 % (39.0-53.0); HGB 10.4 gm/dL (13.0-17.5); Hypochromasia Slight; Lymphocytes # (A) 1.5 k/uL (1.0-4.8); Lymphocytes % (A) 24 %; MCH 25.6 pg (25.0-35.0); MCHC 31.8 g/dL (31.0-37.0); MCV 80.6 fL (80.0-100.0); Mean Platelet Volume 6.2; Monocytes # (A) 0.3 k/uL (0-1.0); Monocytes % (A) 5 %; Neutrophils # (A) 3.9 k/uL (1.3-7.7); Neutrophils % (A) 63 %; Platelet Count 221 k/uL (150-450); RBC 4.05 m/uL (4.30-5.90); WBC 6.2 k/uL (3.8-10.6)
[2018-05-04 09:41] LABS: ALT 20 U/L (21-72); AST 12 U/L (17-59); Albumin 2.9 g/dL (3.5-5.0); Alkaline Phosphatase 41 U/L (38-126); Anion Gap 6 mmol/L; Blood Urea Nitrogen 13 mg/dL (9-20); Calcium 8.1 mg/dL (8.4-10.2); Carbon Dioxide 24 mmol/L (22-30); Chloride 108 mmol/L (98-107); Glucose 228 mg/dL (74-99); Potassium 4.2 mmol/L (3.5-5.1); Sodium 138 mmol/L (137-145); Total Bilirubin 0.4 mg/dL (0.2-1.3)
[2018-05-04 12:17] LABS: Glucose,Whole Blood 221 mg/dL (75-99)
[2018-05-04] MEDS: ACETAMINOPHEN TAB 325 MG TAB PO PRN (12:59)
[2018-05-04 13:50] LABS: Erythrocyte Sedimentation Rate 80 mm/hr (0-15)
--- NOTE | 2018-05-04 13:54 | CONS ---
CONSULTATION This is a 42-year-old diabetic male who has been admitted to [facility] with chronic wounds involving both feet, plantar aspect. The patient has been seen under the care of Dr. Morales for local wound care. The patient has been seen by Dr. Anderson and patient wants an opinion about further surgical intervention. The patient's medical history includes history of diabetes, chronic wounds on both lower feet. SOCIAL HISTORY: Denies smoking. ALLERGIES: PENICILLIN. On examination, patient was seen in his room. NECK: Supple. Trachea central. CHEST: Clear on auscultation. ABDOMEN: Soft. Femorals are 1+. DP 1+. The patient has a Ever's grade 3 wound on the left foot, plantar aspect, with some mild tenderness noted on the dorsal aspect of the big toe. No active drainage noted. Also the right foot has a chronic wound on the plantar aspect. Underneath is decent granulation tissue. The patient was seen by Infectious Disease and the patient is on IV antibiotic. PLAN: Patient had an x-ray of the foot which shows there are some erosive changes at the head of the first metatarsal which may become a chronic osteomyelitis. Patient is going to have further workup to rule out osteomyelitis. Dr. Anderson ordered a WBC scan, which will be done on Sunday. I will discuss with Dr. Anderson. In the meantime, continue the IV antibiotic and local wound care. Will follow with you. MMODL / IJN: [id number] /
[2018-05-04] MEDS ORDERED: MORPHINE ORAL SOLN 10 MG/5 ML CUP PO PRN (15:48)
[2018-05-04 17:18] LABS: Glucose,Whole Blood 235 mg/dL (75-99)
[2018-05-04 20:49] LABS: Glucose,Whole Blood 200 mg/dL (75-99)
[2018-05-04] MEDS: INSULIN DETEMIR 100 UNIT/ML 10 ML VIAL SQ SCH (21:59)
[2018-05-04] MEDS ORDERED: VANCOMYCIN TROUGH DUE 1 EACH MISC MISCELLANE ONE (23:00)
--- NOTE | 2018-05-05 00:04 | PN ---
PROGRESS NOTE DATE OF SERVICE: 05/04/2018. REASON FOR FOLLOWUP: Left diabetic foot infection with question of osteomyelitis. INTERVAL HISTORY: The patient is currently afebrile. He is breathing comfortably. The patient denies having any chest pain, shortness of breath or cough. No abdominal pain or any pain to his left foot area. No diarrhea. PHYSICAL EXAMINATION: Blood pressure is 124/85 with a pulse of 78. Temperature 98.7. He is 97% on 2 L nasal cannula. General description is a middle-aged male lying in bed in no distress. Respiratory system: Unlabored breathing. Clear to auscultation anteriorly. Heart S1, S2. Regular rate and rhythm. Abdomen is soft. No tenderness. Left wrist currently dressed up. No obvious drainage on the dressing. LABS: White count of 6.2 with a BUN of 13, creatinine 0.65. Sedimentation rate is 18 with a CRP of 58. Cultures currently pending. DIAGNOSTIC IMPRESSION AND PLAN: Patient with left diabetic foot infection, Ever's Grade 3 with a history of recurrent osteomyelitis. The last cultures done in February did grow MRSA and as well as Pseudomonas aeruginosa. The patient is currently covered with Zosyn and vancomycin to continue for now. Recommend obtaining an MRI of the left foot instead the WBC scan as it will be more sensitive to determine underlying pathology. Continue vanco while watching his kidney function closely. Continue supportive care. MMODL / IJN: [id number] /
[2018-05-05] MEDS: PIPERACILLIN-TAZOBACTAM 3.375 GM in SODIUM CHLORIDE 0.9% 100 ML IVPB SCH ×3 (01:02→16:06)
[2018-05-05] MEDS: VANCOMYCIN 2,000 MG in SODIUM CHLORIDE 0.9% 500 ML 500 ML IVPB SCH ×3 (01:03→16:07)
[2018-05-05 07:28] LABS: Glucose,Whole Blood 130 mg/dL (75-99)
[2018-05-05] MEDS: metFORMIN 500 MG TAB PO SCH ×2 (08:04→16:07)
[2018-05-05] MEDS: ATENOLOL 25 MG TAB PO SCH (08:04)
[2018-05-05] MEDS: INSULIN ASPART 100 UNIT/ML 1 ML 10 ML VIAL SQ SCH ×4 (08:05→20:57)
[2018-05-05] MEDS: ACETAMINOPHEN TAB 325 MG TAB PO PRN (08:57)
[2018-05-05 12:29] LABS: Glucose,Whole Blood 165 mg/dL (75-99)
[2018-05-05 17:17] LABS: Glucose,Whole Blood 173 mg/dL (75-99)
--- NOTE | 2018-05-05 18:32 | PN ---
PROGRESS NOTE DATE OF SERVICE: 05/05/2018 He does not complain of shortness of breath or chest pain. His pain overall is under control. He has a low-grade fever. On physical examination, blood pressure is 145/68, respiratory rate 22, pulse rate 90, temperature 99.2 degrees Fahrenheit. HEENT reveals pupils that are equal. No jugular venous distention. Has a short, thick neck. Chest is clear. Cardiovascular system reveals an S1, S2. Abdomen is soft. There is no pedal edema. IMPRESSION: 1. Left lower extremity diabetic foot with possible osteomyelitis. 2. Diabetes mellitus. 3. Obesity. Vascular surgery, Podiatry and ID are further evaluating the patient. Continue on broad-spectrum IV antibiotics including vancomycin and Zosyn, increase his activity level as tolerated. His prognosis is guarded. MMODL / IJN: [id number] /
[2018-05-05] MEDS: risperiDONE 0.5 MG TAB PO SCH (20:08)
[2018-05-05 20:52] LABS: Glucose,Whole Blood 192 mg/dL (75-99)
[2018-05-05] MEDS: INSULIN DETEMIR 100 UNIT/ML 10 ML VIAL SQ SCH (20:56)
--- NOTE | 2018-05-05 23:58 | PN ---
PROGRESS NOTE DATE OF SERVICE: 05/05/2018. REASON FOR FOLLOWUP: Left diabetic foot ulcer and possible osteomyelitis. INTERVAL HISTORY: The patient is currently afebrile, has been breathing comfortably. Denies having any chest pain, shortness of breath or cough. No abdominal pain or any pain to his left foot area. PHYSICAL EXAMINATION: Blood pressure is 150/70 with a pulse of 100, temperature 98.7. He is 96% on room air. General description is a middle aged male lying in bed in no distress. Respiratory system: Unlabored breathing. Clear to auscultation anteriorly. Heart S1, S2. Regular rate and rhythm. Abdomen soft, no tenderness. LABS: No new labs have been obtained today. Culture has been showing gram-negative presumptive MRSA. Blood culture has been negative. DIAGNOSTIC IMPRESSION AND PLAN: Patient with left diabetic foot wound with underlying cellulitis/osteomyelitis. We will obtain an MRI of his left foot area with contrast as this is more sensitive to the WBC scan to determine underlying pathology. Keep the patient on vancomycin and Zosyn which the patient has tolerated so far while waiting for the culture to finalize. Continue supportive care. MMODL / IJN: [id number] /
[2018-05-06] MEDS: VANCOMYCIN 2,000 MG in SODIUM CHLORIDE 0.9% 500 ML 500 ML IVPB SCH ×3 (02:44→16:37)
[2018-05-06] MEDS: PIPERACILLIN-TAZOBACTAM 3.375 GM in SODIUM CHLORIDE 0.9% 100 ML IVPB SCH ×3 (02:45→16:37)
[2018-05-06 07:30] LABS: Glucose,Whole Blood 148 mg/dL (75-99)
--- NOTE | 2018-05-06 09:33 | MR ---
EXAMINATION TYPE: MR foot LT wo/w con DATE OF EXAM: 05/06/2018 COMPARISON: Left foot radiographs dated 05/03/2018 HISTORY: Osteomyelitis left foot CONTRAST: Standard multiplanar, multisequence MRI departmental protocol utilizing 13.5 mL intravenous Gadavist gadolinium contrast. FINDINGS: There is confluent T1 hypointensity and T2 hyperintensity of the plantar aspect of the firs t metatarsophalangeal joint and distal second metatarsal. Postsurgical change including amputation of the second digit is seen with postsurgical change of the second metatarsal head. There is erosive ch jnea of the distal first metatarsal with abnormal bone marrow signal distally as hypointensity on T1- weighted images. No abnormal bone marrow signal is seen within the proximal first phalanx arthropathy remaining osseous structures of the left foot. There is no focal fluid collection to suggest abscess however there is diffuse subcutaneous edema throughout the entire left foot most pronounced at the p lantar aspect of the distal midfoot and within the forefoot. There is abnormal enhancement in the sub cutaneous tissues within the medial distal midfoot and forefoot again without focal fluid collection. Abnormal enhancement of the bone marrow within the first distal metatarsal is difficult to visualize given patient motion but appears stable present. Evaluation of the ligaments and tendons is severely limited given subcutaneous edema and patient donis on. IMPRESSION: 1. Although the exam is limited given patient motion there is confirmation of findings compatible wit h osteomyelitis of the left first distal metatarsal with associated cellulitis of the plantar subcuta neous tissues surrounding the medial midfoot and forefoot. No adjacent focal fluid collection to sugg est abscess. 2. Amputation of the second phalanx and distal metatarsal head. No obvious involvement of osteoarthri tis of the second metatarsal or the remainder of the left foot. 3. Generalized left lower extremity moderate subcutaneous edema.
[2018-05-06] MEDS: INSULIN ASPART 100 UNIT/ML 1 ML 10 ML VIAL SQ SCH ×4 (09:36→22:00)
[2018-05-06] MEDS: ATENOLOL 25 MG TAB PO SCH (09:36)
[2018-05-06] MEDS: metFORMIN 500 MG TAB PO SCH ×2 (09:36→16:37)
[2018-05-06 12:03] LABS: Glucose,Whole Blood 157 mg/dL (75-99)
[2018-05-06 16:50] LABS: Glucose,Whole Blood 201 mg/dL (75-99)
[2018-05-06 21:38] LABS: Glucose,Whole Blood 221 mg/dL (75-99)
[2018-05-06] MEDS: INSULIN DETEMIR 100 UNIT/ML 10 ML VIAL SQ SCH (22:01)
[2018-05-06] MEDS: risperiDONE 0.5 MG TAB PO SCH (22:02)
--- NOTE | 2018-05-06 22:32 | PN ---
PROGRESS NOTE DATE OF SERVICE: 05/06/2018 REASON FOR FOLLOWUP: Left foot osteomyelitis. INTERVAL HISTORY: The patient is afebrile, has been breathing comfortably. The patient denies having any chest pain or shortness of breath or cough. No abdominal pain or any worsening pain to the left foot area. PHYSICAL EXAMINATION: Blood pressure is 151/83 with a pulse of 86, temperature 98.6. He is 94% on room air. General description is a middle-aged male lying in bed in no distress. RESPIRATORY SYSTEM: Unlabored breathing. Clear to auscultation anteriorly. HEART: S1, S2. Regular rate and rhythm. ABDOMEN: Soft. No tenderness. Left foot is currently dressed up; no obvious drainage on the dressing. LABS: No new labs have been obtained today. Wound culture with MRSA and gram-negative bacilli. The culture that was done in the wound care before admission also showing 3 different gram-negatives as well as anaerobic gram-negative bacilli. Sensitivities on those are currently pending. DIAGNOSTIC IMPRESSION AND PLAN: Patient with a left diabetic foot infection, Ever's grade 3, with underlying osteomyelitis with multiple pathogens, including methicillin-resistant Staphylococcus aeruginosa and gram-negative bacilli, anaerobic gram-negative. The patient did have an MRI completed which shows evidence of osteomyelitis but no drainable abscess. The patient will get a PICC line for the discharge antibiotic, possibly cefepime, as we are waiting for the sensitivities on these gram-negatives, and daptomycin, as the current vancomycin dose of q.8 hours would not be possible in the outpatient setting in this patient who does have problems with compliance, even taking his once a day IV antibiotic in the outpatient setting. We will monitor his clinical course closely. Continue with supportive care. MMODL / IJN: [id number] /
--- NOTE | 2018-05-07 00:06 | PN ---
PROGRESS NOTE SUBJECTIVE: A 42-year-old white male with diabetic foot ulcer, diabetes mellitus, cellulitis of bilateral feet. ASSESSMENT: Compatible osteomyelitis of the left first distal metatarsal and surrounding cellulitis. PLAN: IV PICC line will be needed for outpatient therapy for 6 weeks with wound care. MAUREEN / TATO: [id number] /
[2018-05-07] MEDS: VANCOMYCIN 2,000 MG in SODIUM CHLORIDE 0.9% 500 ML 500 ML IVPB SCH ×3 (00:29→15:59)
[2018-05-07] MEDS: PIPERACILLIN-TAZOBACTAM 3.375 GM in SODIUM CHLORIDE 0.9% 100 ML IVPB SCH ×3 (00:30→15:59)
[2018-05-07] MEDS ORDERED: VANCOMYCIN TROUGH DUE 1 EACH MISC MISCELLANE ONE (07:00)
[2018-05-07 07:43] LABS: Glucose,Whole Blood 239 mg/dL (75-99)
[2018-05-07] MEDS: metFORMIN 500 MG TAB PO SCH ×2 (08:15→17:39)
[2018-05-07] MEDS: ATENOLOL 25 MG TAB PO SCH (08:15)
[2018-05-07] MEDS: INSULIN ASPART 100 UNIT/ML 1 ML 10 ML VIAL SQ SCH ×4 (08:15→21:45)
[2018-05-07 09:16] LABS: Anion Gap 6 mmol/L; Blood Urea Nitrogen 10 mg/dL (9-20); Calcium 8.6 mg/dL (8.4-10.2); Carbon Dioxide 27 mmol/L (22-30); Chloride 105 mmol/L (98-107); Glucose 273 mg/dL (74-99); Potassium 4.7 mmol/L (3.5-5.1); Sodium 138 mmol/L (137-145)
[2018-05-07 12:41] LABS: Glucose,Whole Blood 226 mg/dL (75-99)
--- NOTE | 2018-05-07 13:04 | IR ---
EXAMINATION TYPE: IR cvc insert >=5 years DATE OF EXAM: 05/07/2018 COMPARISON: NONE CLINICAL HISTORY: Infection Needs long-term intravenous access for antibiotics. PROCEDURE: After informed consent, the skin overlying the left basilic vein was localized with ultrasound and no gina to be compressible and patent. An ultrasound image was obtained and submitted on the patient's c herr. The overlying skin was prepped and draped and Lidocaine was used for local anesthesia. A skin trini was made with a scalpel. Access was gained to the vein under ultrasound guidance with a 21 gau ge needle and a 0.018 inch wire was advanced. Access site was dilated with Peel-Away sheath and cath eter tailored to the appropriate length and advanced such that the distal tip is at the cavoatrial ju nction. Spot image was obtained verifying placement. Catheter was fixed to the skin and a sterile d ressing was placed following hemostasis. Catheter was aspirated and flushed with saline. Patient wa s discharged in stable condition without complication. Maximal barrier technique is utilized. Ultras ound image is documented on the chart. Ultrasound used with sterile technique. Fluoro time and fluoroscopic images submitted to document procedure: 0.5 minutes fluoroscopy time, 91 intraoperative images document the procedure. IMPRESSION: STATUS POST ULTRASOUND AND FLUOROSCOPIC GUIDED PICC LINE PLACEMENT, READY FOR USE. THIS PROCEDURE WAS PERFORMED BY THE UNDERSIGNED.
[2018-05-07 17:14] LABS: Glucose,Whole Blood 162 mg/dL (75-99)
--- NOTE | 2018-05-07 18:47 | P.CON ---
Consult Note - . Consult date: 05/07/18 Assessment/Plan:: Patient was seen at bedside today resting nonweightbearing with the infected left foot. Removal of the dry sterile dressing shows decreased erythema decrease erythema edema no purulence. The ulceration on the plantar aspect of the left foot appears to be granulating well with minimal necrotic tissue. Review of radiographs MRI shows possible osteomyelitis first metatarsal head this is chronic in nature. Patient does have PICC line placed will be going home on IV antibiotics patient is to follow-up in the wound care center. Continue with current dry sterile dressing and wound care orders.
[2018-05-07] MEDS: risperiDONE 0.5 MG TAB PO SCH (21:05)
[2018-05-07 21:35] LABS: Glucose,Whole Blood 145 mg/dL (75-99)
[2018-05-07] MEDS: INSULIN DETEMIR 100 UNIT/ML 10 ML VIAL SQ SCH (21:46)
--- NOTE | 2018-05-07 22:52 | PN ---
PROGRESS NOTE SUBJECTIVE: A 42-year-old white male with osteomyelitis of the left metatarsal joint. Patient is on IV Zosyn, Glucophage, Levemir and NovoLog for diabetes mellitus. Continue current treatment. Awaiting PICC line placement. Home IV antibiotics set up for long-term 6 weeks IV antibiotics. ASSESSMENT/PLAN: Continue current treatment. MMODL / IJN: [id number] /
[2018-05-08] MEDS: VANCOMYCIN 2,000 MG in SODIUM CHLORIDE 0.9% 500 ML 500 ML IVPB SCH ×3 (00:15→15:08)
[2018-05-08] MEDS: PIPERACILLIN-TAZOBACTAM 3.375 GM in SODIUM CHLORIDE 0.9% 100 ML IVPB SCH ×2 (00:21→08:17)
--- NOTE | 2018-05-08 00:46 | PN ---
PROGRESS NOTE DATE OF SERVICE: 05/07/2018. REASON FOR FOLLOWUP: Left diabetic foot infection, with underlying osteomyelitis. INTERVAL HISTORY: The patient is afebrile. Currently breathing comfortably. Denies having any chest pain, shortness of breath or cough. No abdominal pain or worsening pain in the foot area. Currently waiting for ____ before discharge home. EXAMINATION: Blood pressure is 102/78 with a pulse of 81, temperature is 97.8, he is 94% on room air. GENERAL DESCRIPTION: A middle aged male up in the bed in no distress. RESPIRATORY SYSTEM: Unlabored breathing. Clear to auscultation anteriorly. HEART: S1, S2. Regular rate and rhythm. ABDOMEN: Soft. HEART: Heart: S1, S2 normal. LABS: Creatinine 0.7. Sedimentation rate 80, CRP of 58. Wound culture with MRSA, anaerobic gram-negative bacilli and Proteus mirabilis. Cultures done at wound care office show Pseudomonas aeruginosa. DIAGNOSTIC IMPRESSION AND PLAN: Patient with left diabetic foot infection with underlying osteomyelitis with multiple pathogen. Plan will be for vancomycin, pharmacy to dose, along with cefepime 2 g every 12 hours and oral Flagyl for at least 6 weeks. Weekly monitoring of CBC, BMP and sed rate. Once antibiotic arranged, we will go home from ID standpoint. Continue supportive care. MMODL / IJN: [id number] /
[2018-05-08 07:40] LABS: Glucose,Whole Blood 89 mg/dL (75-99)
[2018-05-08] MEDS: INSULIN ASPART 100 UNIT/ML 1 ML 10 ML VIAL SQ SCH ×2 (08:06→12:44)
[2018-05-08] MEDS: metFORMIN 500 MG TAB PO SCH (08:16)
[2018-05-08] MEDS: ATENOLOL 25 MG TAB PO SCH (08:16)
[2018-05-08] MEDS: ACETAMINOPHEN TAB 325 MG TAB PO PRN (08:16)
[2018-05-08 08:45] VITALS: RESP 18
[2018-05-08 11:44] LABS: Glucose,Whole Blood 181 mg/dL (75-99)
[2018-05-08] MEDS ORDERED: CEFEPIME 2 GM in SODIUM CHLORIDE 0.9% 50 ML IVPB SCH (14:00)
--- NOTE | 2018-05-08 14:10 | PN ---
PROGRESS NOTE DATE OF SERVICE: 05/08/2018 REASON FOR FOLLOWUP: Left diabetic foot infection, Stanford's grade 3 with MRSA and Pseudomonas. INTERVAL HISTORY: The patient is currently afebrile. He is breathing comfortably. Patient denies having any chest pain. No shortness of breath. No cough. No abdominal pain or any worsening pain to the left foot area. PHYSICAL EXAMINATION: Blood pressure 144/78 with a pulse of 82, temperature 97.1. He is 91% on room air. General description is a middle-aged male, lying in bed in no distress. RESPIRATORY SYSTEM: Unlabored breathing, clear to auscultation anteriorly. HEART: S1, S2. Regular rate and rhythm. ABDOMEN: Soft, no tenderness. Left foot is , no obvious drainage on the dressing. LABS: No new lab has been obtained today. DIAGNOSTIC IMPRESSION AND PLAN: Patient with left diabetic foot infection, Stanford's grade 3 with underlying osteomyelitis on the MRI. Culture positive for Proteus methicillin-resistant Staphylococcus aureus Pseudomonas aeruginosa, anaerobic gram-negative bacilli. Currently on Zosyn and vancomycin. Will switch to vancomycin and cefepime along with oral Flagyl to finish a 6 week course of therapy with local wound care with Aquacel Silver dressing. Follow up in the office in 1 week. Continue supportive care. MMODL / IJN: [id number] /
[2018-05-08] MEDS ORDERED: metroNIDAZOLE 500 MG TAB PO SCH (16:00)
[2018-05-08 16:24] VITALS: BP 164/78; PULSE 81; TEMP 98.6
--- NOTE | 2018-05-10 08:54 | CDI ---
Documentation Clarification Form Date: 05/10/18 From: Norma Dejesus Phone: If you have a question regarding this query, please contact Mayi Hernandez at [phone] between 8am and 5pm. Admit Date: 05/03/2018 12:11:00 PM Patient Name: David Restrepo Visit Number: [id number] Discharge Date: 05/08/2018 5:10:00 PM ATTENTION: The Clinical Documentation Specialists (CDI) and [facility] Coding Staff appreciate your assistance in clarifying documentation. Please respond to the clarification below the line at the bottom and electronically sign. The CDI & [facility] Coding staff will review the response and follow-up if needed. Please note: Queries are made part of the Legal Health Record. If you have any questions, please contact the author of this message via ITS. Dr. Bunny Ruth Uncontrolled diabetes mellitus is documented in your H&P. History/Risk Factors: Patient has a history of diabetes and noncompliance with medication. Patient also has diabetic foot ulcers, osteomyelitis, cellulitis and obesity. Clinical Indicators: Elevated glucose Lab: Glucose levels were 195 - 273, POC glucose were 321 - 145 with one being 89. Treatment: Sliding scale insulin, glucophage 500 mg BID In order to capture the severity of Illness and necessary documentation specificity, please clarify how the diabetes was uncontrolled: Hypoglycemia Hyperglycemia Other condition Unable to determine MTDD
--- NOTE | 2018-05-12 19:52 | DS ---
DISCHARGE SUMMARY ADDENDUM: Please add to discharge summary: 1. Hyperglycemia secondary to poorly controlled insulin-dependent diabetes mellitus. MMODL / IJN: [id number] /
--- NOTE | 2018-05-12 21:16 | DS ---
DISCHARGE SUMMARY DATE OF ADMISSION: 05/03/2018 DATE OF DISCHARGE: 05/08/2018. DISCHARGE MEDICATIONS: 1. Glucophage 500 b.i.d. 2. NovoLog 15 units q.h.s. 3. Tenormin 25 daily. 4. [place] 5/325 t.i.d. 5. Flagyl 500 q.8 hours. 6. Vancomycin 2500 IV piggyback q.12 hours. 7. Maxipime 2 g IV q.12 hours. 8. 40 units q.h.s. DISCHARGE DIAGNOSES: 1. Osteomyelitis of the right great toe. 2. Cellulitis of the feet. 3. Insulin-dependent diabetes mellitus. 4. Hypertension. 5. Mood disorder. 6. Obesity. 7. Noncompliance. Treated with IV antibiotics for osteomyelitis. Follow up with IV antibiotics as an outpatient. PICC line for 6 weeks and follow up with Dr. Temple for vascular surgery repair. MMODL / BIAN: [id number] /
== END 2018-05-08 17:10 | disposition home health service (06) | DRG 638 ==
LOC: EC 10:37 → 4MS4W 12:11
PROVIDERS: ADMIT Family Medicine; ATTEND Family Medicine
PROC: 02HV33Z Insertion of Infusion Device into Superior Vena Cava, Percutaneous Approach (ICD-10-PCS; principal; 2018-05-07 08:52)
DX: E11.621 Type 2 diabetes mellitus with foot ulcer (principal); M86.672 Other chronic osteomyelitis, left ankle and foot; L03.116 Cellulitis of left lower limb; L03.115 Cellulitis of right lower limb; E11.40 Type 2 diabetes mellitus with diabetic neuropathy, unspecified; E11.610 Type 2 diabetes mellitus with diabetic neuropathic arthropathy; E11.65 Type 2 diabetes mellitus with hyperglycemia; E11.628 Type 2 diabetes mellitus with other skin complications; E11.69 Type 2 diabetes mellitus with other specified complication; L97.529 Non-pressure chronic ulcer of other part of left foot with unspecified severity; F39 Unspecified mood [affective] disorder; B95.62 Methicillin resistant Staphylococcus aureus infection as the cause of diseases classified elsewhere; B96.5 Pseudomonas (aeruginosa) (mallei) (pseudomallei) as the cause of diseases classified elsewhere; B96.4 Proteus (mirabilis) (morganii) as the cause of diseases classified elsewhere; B96.89 Other specified bacterial agents as the cause of diseases classified elsewhere; L97.519 Non-pressure chronic ulcer of other part of right foot with unspecified severity; E66.9 Obesity, unspecified; I10 Essential (primary) hypertension; F32.9 Major depressive disorder, single episode, unspecified; Z79.4 Long term (current) use of insulin; Z79.899 Other long term (current) drug therapy; Z86.14 Personal history of Methicillin resistant Staphylococcus aureus infection; Z91.14 Patient's other noncompliance with medication regimen; Z83.3 Family history of diabetes mellitus; Z82.49 Family history of ischemic heart disease and other diseases of the circulatory system; Z82.61 Family history of arthritis
CPT/HCPCS: 36415; 36573; 80048; 80053; 80202; 81001; 83036; 83605; 85025; 85652; 86140; 87040; 87070; 87075; 87077; 87186; 87205; 96360; 99284

== ENCOUNTER 2024-01-02 12:46 | Emergency (ER) | payer OTHER ==
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
[2024-01-02 15:25] LABS: Amphetamine Screen,Urine Not Detected (NotDetected); Barbiturate Screen,Urine Not Detected (NotDetected); Benzodiazepines Screen,Urine Not Detected (NotDetected); Cocaine Screen,Urine Not Detected (NotDetected); Methadone Screen, Urine Not Detected (NotDetected); Opiate Screen,Urine Not Detected (NotDetected); Oxycodone Screen, Urine Not Detected (NotDetected); Phencyclidine Screen,Urine Not Detected (NotDetected); Tricyclic Antidepressant,Urine Not Detected (NotDetected); Urn Cannabinoid Scrn Not Detected (NotDetected)
[2024-01-02 17:36] LABS: Anisocytosis Slight; Basophils % (A) 0 %; Eosinophils # (A) 0.2 k/uL (0-0.7); Eosinophils % (A) 2 %; HCT 39.8 % (39.0-53.0); HGB 12.8 gm/dL (13.0-17.5); Hypochromasia Slight; Lymphocytes # (A) 2.1 k/uL (1.0-4.8); Lymphocytes % (A) 21 %; MCH 26.3 pg (25.0-35.0); MCHC 32.2 g/dL (31.0-37.0); MCV 81.5 fL (80.0-100.0); Mean Platelet Volume 7.8; Monocytes # (A) 0.5 k/uL (0-1.0); Monocytes % (A) 5 %; Neutrophils # (A) 6.9 k/uL (1.3-7.7); Neutrophils % (A) 70 %; Platelet Count 214 k/uL (150-450); Poikilocytosis Slight; RBC 4.88 m/uL (4.30-5.90); RDW 16.1 % (11.5-15.5); WBC 9.9 k/uL (3.8-10.6)
[2024-01-02 17:58] LABS: ALT 18 U/L (4-49); AST 16 U/L (17-59); African American GFR (CKD) >90 (>60 ml/min/1.73 sqM); Albumin 3.8 g/dL (3.5-5.0); Alkaline Phosphatase 56 U/L (38-126); Anion Gap 11 mmol/L; Blood Urea Nitrogen 31 mg/dL (9-20); Calcium 8.9 mg/dL (8.4-10.2); Carbon Dioxide 20 mmol/L (22-30); Chloride 108 mmol/L (98-107); Glucose 206 mg/dL (74-99); Non-African American GFR(CKD) 88 (>60 ml/min/1.73 sqM); Potassium 4.4 mmol/L (3.5-5.1); Sodium 139 mmol/L (137-145); Total Bilirubin 0.5 mg/dL (0.2-1.3); Total Protein 6.3 g/dL (6.3-8.2)
[2024-01-03 19:57] LABS: Glucose,Whole Blood 290 mg/dL (70-110)
[2024-01-03] MEDS: metFORMIN 500 MG TAB PO SCH (20:45)
[2024-01-03] MEDS: INSULIN DETEMIR (LEVEMIR) 100 UNIT/ML SYR SQ SCH (20:46)
[2024-01-04 22:09] LABS: Glucose,Whole Blood 326 mg/dL (70-110)
[2024-01-04 23:20] LABS: Glucose,Whole Blood 377 mg/dL (70-110)
[2024-01-05] MEDS: ACETAMINOPHEN TAB 325 MG TAB PO STA (18:18)
[2024-01-05 20:05] LABS: Glucose,Whole Blood 276 mg/dL (70-110)
[2024-01-06 21:08] VITALS: TEMP 98.2
[2024-01-06 21:10] LABS: Glucose,Whole Blood 348 mg/dL (70-110)
[2024-01-07 11:29] VITALS: BP 173/86; PULSE 106; RESP 20
== END 2024-01-07 11:29 ==
LOC: EC 12:46
CPT/HCPCS: 36415; 80053; 80306; 82075; 85025; 87635; 99285